=== PATIENT | female | born 1950 | race Caucasian/White ===

== ENCOUNTER 2023-04-15 23:33 | Inpatient (IN) | payer MEDICARE, OTHER, SELFPAY ==
[2023-04-15 14:44] VITALS: BP 103/54
[2023-04-15 17:22] VITALS: BP 134/62
--- NOTE | 2023-04-15 17:31 | ED.GENMED ---
History of Present Illness
General
Chief Complaint: Catheter/Tube Problem
Source: patient and spouse
Exam Limitations: none
Time Seen by Provider: 04/15/23 17:08
Nursing documentation reviewed up to this point in time: agreed with
Travel History
Have you had any contact with someone who has COVID-19?: No
Do you have any symptoms of coronavirus? Fever > 100 degrees, chills, cough, shortness of breath, sore throat, loss of taste or smell, muscle aches, or headache?: No
History of Present Illness
History of Present Illness:
Patient with history of scleroderma and subsequent development of gastroparesis, requiring G-tube placement 3 years ago, which patient drains twice daily, presents to ED secondary to persistent abdominal pain, especially around her G-tube site over
the past 3 days. 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 Initially, patient thought she may have pulled abdominal muscle. However, patient has worsened over the past 3 days. Denies fever or chills.
Denies nausea or vomiting. Denies previous history of similar symptoms.
Past History
Past History
ED Past Medical History: Hypothyroidism, Other (Raynaud and scleroderma, Ascities, SBO, Spontanious Bacterial peritonitis, UTI, Fracture Femur, Chronic Nausea), Other (Uterine and rectal prolapse) and Other (Irritable bowel, takes Trulance)
ED Past Surgical History: Bowel resection, Gynecological (Hysterectomy), Orthopedic and Other (Hernia repair, thyroidectomy, vaginal prolapse, rectal prolapse)
Social History
Tobacco: Non-smoker
Alcohol: None
Drug: None
Personal:
Living: with family
Employment: Retired
Family History
Family History: Other (Noncontributory)
Review of Systems
Review of Systems
Allergies reviewed?: Yes
All Other Systems: ROS reviewed and negative except as documented in HPI and ROS
Constitutional: Reports no symptoms; Denies fever
EENT: Reports no symptoms
Respiratory: Reports no symptoms
Cardiac: Reports no symptoms
ABD/GI: Reports abdominal pain; Denies nausea or vomiting
: Reports no symptoms
Musculoskeletal: Reports no symptoms
Skin: Reports no symptoms
Neurological: Reports no symptoms
Phy Exam
Physical Exam
Physical Exam:
Physical Exam
General: mild painful distress, not acutely ill. afebrile
Head: nc/at. eomi
Neck: supple. no meningeal signs.
Heart: s1/s2 regular rate and rhythm, no murmur. equal radial pulses.
Lungs: no acute respiratory distress. clear bilaterally
Abdomen: normal bowel sounds. G-tube noted over LUQ with surrounding erythema/swelling with tenderness.
Neuro: alert and oriented. no focal neurological deficits
Skin: no rash
Psychiatric: well kept. interactive and cooperative
Extremities: no edema. no calf tenderness.
Course
Orders/Labs/Results
Orders:
Orders
04/15/23 17:17
CT Abd/pel W Iv And Oral Contr Urgent
Comment:
Reason For Exam: periumbilical tenderness w swelling
Iohexol [Omnipaque] See Protocol PO NOW STA
Ketorolac [Toradol] 15 mg IV NOW STA
04/15/23 17:18
0.9% Sodium Chloride 500 ml [Nss] 500 ml IV BOLUS
04/15/23 17:32
CR Chest Portable - 1 View Urgent
Comment:
Reason For Exam: Picc line placement
Reason Study Needs to be Portable: Other
04/15/23 17:40
Complete Blood Count/With Diff Urgent
Comprehensive Metabolic Panel Urgent
Lipase Urgent
04/15/23 19:01
Morphine Sulfate 2 mg .ROUTE .STK-MED ONE
04/15/23 19:06
Morphine Sulfate 2 mg IV NOW STA
04/15/23 19:16
Urinalysis Reflex To Culture Urgent
Date Specimen was Collected: 04/15/23
Time Specimen was Collected: 19:09
Urine Microscopic Reflex Cult Urgent
Urine Culture Urgent
PATTIE Source: U
Specimen Description:
Date Specimen was Collected: 04/15/23
Time Specimen was Collected: 19:09
04/15/23 21:16
HYDROmorphone [Dilaudid] 0.5 mg IV NOW STA
04/15/23 22:41
Admit/Transfer Patient As Directed
Co-Sign Provider:
Level of Care: Inpatient admission
Assign to:: Medical/Surgical
Physician / Group: cynthia erickson
Diagnosis: abdominal pain
Reason for Hospitalization: abdominal pain
Expected length of stay greater than two midnights?: Yes
ELOS- Estimated Length of Stay in days: 3
I certify the patient meets the requirements for IP care: Yes
04/15/23 22:42
Code Status As Directed
Resuscitation Status: Full Code
04/15/23 23:00
0.9% Sodium Chloride 500 ml [Nss] 500 ml IV 100 mls/hr
04/15/23 23:[address] Non Medication Order As Directed
Physician Order: tube to gravity
Above order entered?: Yes
04/16/23 00:08
Lorazepam [Ativan] 0.5 mg PO BIDPRN PRN
04/16/23 00:08
Consult Notification Routine
Specialty to Notify: Gastroenterology
Consult Notification Routine
Specialty to Notify: IRAD (Interventional Radiology)
GASTROINTESTINAL CONSULT Routine
Consulting Provider: Micky Daniels
Was physician already notified: No
Reason for consult: abdominal pain
IRAD CONSULT Routine
Consulting Provider: Bj Reis
Was physician already notified: No
Reason for consult: G tube placement
Activity As Directed
Activity Level: As Tolerated
Vital Signs As Directed
Frequency: Per unit guidelines
DX Deep Vein Thrombosis Video Routine
04/16/23 Breakfast
NPO
Allow oral meds: Yes
Allow clear liquids: Sips of Clears
Complete Blood Count/No Diff IN AM
Comprehensive Metabolic Panel IN AM
04/16/23 07:00
levothyroxine [Thyquidity] 560 mcg PO DAILY AT 0700
04/16/23 08:00
Duloxetine Delayed Release [Cymbalta Delayed Release] 30 mg PO DAILY
Furosemide [Lasix] 20 mg PO DAILY
Heparin 5,000 units SC Q12
Sildenafil Citrate [Revatio] 60 mg PO BID
04/16/23 22:00
Mirtazapine Odt [Remeron Odt] 15 mg PO HS
04/17/23 06:00
Complete Blood Count/No Diff IN AM
Comprehensive Metabolic Panel IN AM
04/18/23 06:00
Complete Blood Count/No Diff IN AM
Comprehensive Metabolic Panel IN AM
04/19/23 06:00
Complete Blood Count/No Diff IN AM
Comprehensive Metabolic Panel IN AM
04/20/23 06:00
Complete Blood Count/No Diff IN AM
Comprehensive Metabolic Panel IN AM
Abnormal Lab Results
04/15/23 04/15/23
17:40 19:16
RBC 2.85 L 10^6/uL
(4.20-5.40)
Hgb 8.5 L g/dL
(12.0-16.0)
Hct 26.5 L %
(37.0-47.0)
MCHC 32.1 L g/dL
(33.0-37.0)
RDW 19.6 H %
(11.5-14.5)
MPV 10.8 H fL
(7.4-10.4)
Absolute Neuts (auto) 7.2 H 10^3/uL
(1.4-6.5)
Absolute Lymphs (auto) 0.7 L 10^3/uL
(1.2-3.4)
Absolute Monos (auto) 0.9 H 10^3/uL
(0.1-0.6)
Neutrophils % 81.5 H %
(42.2-75.2)
Lymphocytes % 7.8 L %
(20.5-51.1)
Monocytes % 10.0 H %
(1.7-9.3)
BUN 49 H mg/dl
(7-17)
Creatinine 1.1 H mg/dL
(0.6-1.0)
Calcium 7.4 L mg/dl
(8.4-10.2)
AST 62 H U/L
(14-36)
ALT 52 H U/L
(0-35)
Alkaline Phosphatase 372 H U/L
(38-126)
Total Protein 5.7 L g/dl
(6.3-8.2)
Albumin 2.6 L g/dl
(3.5-5.0)
Ur Occult Blood Reflex Trace A
(Negative)
Leukocyte Esterase Rfl 2+ A
(Negative)
Urine RBC 3-6 A /HPF
(0-2)
Urine WBC (Reflex) 16-20 A /HPF
(0-5)
Urine Bacteria (Reflex) Many A
(Negative)
04/15/23 17:40
04/15/23 17:40
Vital Signs
Initial and Last Documented VS:
Initial Vital Signs
Temp Pulse Resp BP Pulse Ox
98.0 F 79 17 103/54 100
04/15/23 14:44 04/15/23 14:44 04/15/23 14:44 04/15/23 14:44 04/15/23 14:44
Last Documented Vital Signs
Temp Pulse Resp BP Pulse Ox
98.0 F 76 16 126/74 97
04/15/23 14:44 04/15/23 21:05 04/15/23 21:05 04/15/23 21:05 04/15/23 21:05
MDM/Problems Addressed
MDM/Problems Addressed:
Shortly after obtaining CT scan, patient was in the bathroom, when her G-tube spontaneously dislodged with the balloon intact. Afterwards, although with continual pain, patient reports mild improvement in symptoms. Unfortunately, 22 Liberian G-tube
unavailable in the hospital. As such, Pemberton catheter 22 Liberian inserted without difficulty, to prevent closing of the G-tube tract. Will require definitive treatment.
CT report reviewed and discussed with patient.
Patient will be admitted for further evaluation, including pain control, along with possible component of partial obstruction noted on CT scan.
*Critical Care Note
Total Time (30-74mins, 75-104mins- exclusive of procedures): Not Applicable
ED Attending Note
-
Portions of this chart may have been created with voice recognition software.� Occasional wrong word or��sound alike� substitutions may have occurred due to the inherent limitations of voice recognition software.
Discharge Plan
Departure
Patient Disposition: Admit
Date of Disposition: 04/15/23
Time of Disposition: 21:55
Presentation/result/management discussed w/ accepting MD/DO: Hospitalist
Discharge Problem:
Dislodged gastrostomy tube, Intractable abdominal pain, Partial bowel obstruction
Interventions
Interventions:
*Risk Screen - Suicide Last Done: 04/15/23 17:23
*General Assessment Last Done: 04/15/23 17:23
*Neglect/Abuse Screening Last Done: 04/15/23 17:23
*ED COVID-19 Vaccine History Last Done: 04/15/23 17:21
JE-Piwbxn-Lxalsahwut Assessment Last Done: 04/15/23 17:30
ED-Female Genitourinary Assessment Last Done: 04/15/23 17:30
[2023-04-15] MEDS: TORADOL 15 MG IV (17:53)
[2023-04-15] MEDS: OMNIPAQUE 50 ML PO (17:53)
[2023-04-15] MEDS: NSS 500 IV ×2 (17:55→23:24)
[2023-04-15 17:56] LABS: % Basophils 0.1 % (0-2); % Eosinophils 0.3 % (0-6); % Immature Granulocytes 0.3 % (0-0.5); % Lymphocytes 7.8 % (20.5-51.1); % Neutrophils 81.5 % (42.2-75.2); Absolute Lymphocytes 0.7 10^3/uL (1.2-3.4); Absolute Monocytes 0.9 10^3/uL (0.1-0.6); Absolute Neutrophils 7.2 10^3/uL (1.4-6.5); Hematocrit 26.5 % (37.0-47.0); Hemoglobin 8.5 g/dL (12.0-16.0); Mean Corp Hgb Conc. 32.1 g/dL (33.0-37.0); Mean Corpuscular Hgb 29.8 pg (27.0-31.0); Mean Platelet Volume 10.8 fL (7.4-10.4); Nucleated Red Blood Cells % 0 %; Platelet Count 157 10^3/uL (130-400); Red Blood Cell Count 2.85 10^6/uL (4.20-5.40); Red Cell Dist. Width 19.6 % (11.5-14.5); White Blood Cell Count 8.9 10^3/uL (4.8-10.8)
[2023-04-15 18:00] VITALS: BP 130/56
[2023-04-15 18:09] LABS: ALT (SGPT) 52 U/L (0-35); AST (SGOT) 62 U/L (14-36); Albumin 2.6 g/dl (3.5-5.0); Alkaline Phosphatase 372 U/L (38-126); Blood Urea Nitrogen 49 mg/dl (7-17); Calcium 7.4 mg/dl (8.4-10.2); Carbon Dioxide 24 mmol/L (22-30); Chloride 102 mmol/L (98-107); Glucose 91 mg/dl (70-99); Potassium 3.6 mmol/L (3.5-5.1); Sodium 136 mmol/L (135-145); Total Bilirubin 0.6 mg/dl (0.2-1.3); Total Protein 5.7 g/dl (6.3-8.2); eGFR 53.39
[2023-04-15 18:10] LABS: Lipase 290 U/L (23-300)
[2023-04-15 19:00] VITALS: BP 113/48
[2023-04-15] MEDS: MORPHINE SULFATE 2 MG IV (19:13)
[2023-04-15 19:26] LABS: Urine Albumin Trace (Neg - Trace); Urine Bilirubin Negative (Negative); Urine Character Clear (Clear); Urine Color Yellow; Urine Glucose Negative (Negative); Urine Ketone Negative (Negative); Urine Leukocyte 2+ (Negative); Urine Nitrite Negative (Negative); Urine Occult Blood Trace (Negative); Urine Specific Gravity 1.015 (<1.030); Urine Urobilinogen Negative (Neg - 1+)
[2023-04-15 19:35] LABS: Urine Squamous Cell 0-2 /LPF (Few)
[2023-04-15 19:36] LABS: Urine Bacteria Many (Negative); Urine White Cell 16-20 /HPF (0-5)
[2023-04-15 21:05] VITALS: BP 126/74
--- NOTE | 2023-04-15 22:10 | HPS.HSE ---
Addendum entered and electronically signed by Michael Piedra DO 04/16/23 00:20:
Patient seen and examined independently. Agree with findings and plan as set forth by BETHANY Zabala.
Patient is a 72y F with PMH significant for severe scleroderma with chronic gastroparesis and G-tube dependence who presents to ED complaining of abdominal pain. Patient states that she lifted something heavy about one week ago and has noted
some discomfort in the abdomen near the tube site since that time. She initially though it was a pulled muscle; however, her symptoms gradually increased. Her tube has continued to drain without any apparent issue. She has had no N/V. She denies
any significant change in abdominal distention.
Evaluation in the ED today revealed that G-tube was dislodged with balloon in the fistulous tract. This was removed and a Pemberton was placed for tract maintenance for now.
Ass:
Dislodged G-Tube
Severe Systemic Scleroderma
Chronic Gastroparesis
G-Tube and TPN Dependent
Pulmonary Hypertension
Anemia of Chronic Disease
CKD III
Chronic HFpEF
Plan:
Admit for further evaluation and treatment.
Maintain Pemberton for now - to bag drainage to prevent N/V, etc.
IR evaluation for tube replacement in the AM.
GI evaluation for additional recommendations / TPN / etc.
Continue usual outpatient medications.
(Note that patient does take meds / meals PO as well as supplemental TPN at night).
Follow for clinical changes.
Original Note:
Family Physician
-
Family Physician: Toyin Goldstein
Chief Complaint
-
abdominal pain
History of Present Illness
72 year old with PMH fot hypothyroidism, scleroderma, Raynaud disease, ascites, SBP, SBP, UTI, uterine and rectal prolapse, gastroparesis requiring G-tube placement 3 years ago, which patient drains twice daily, presents to ED secondary to
persistent abdominal pain, especially around her G-tube site over the past 3 days. denied n,v denied constipation. she has chronic diarrhea.� Denies fever or chills. denied dysuria or hematuria.
CT with partial obstruction, dislodge G tube. admitting for further management.
Medical History
Past Medical History
Past Medical History: Reports Other
Additional Past Medical History:
, GERD, Hypothyroidism and Other (CREST syndrome, CHF, GERD, hypothyroidism, scleroderma, peptic ulcer disease, urinary retention gastroparesis on TPN via left upper extremity PICC line and G-tube, psoriatic arthritis, recent Klebsiella pneumonia
bacteremia
Past Surgical History: Reports Other
Additional Past Surgical History:
hysterectomy
hernia repair
thyroidectomy
right hip replacement
Social History
Tobacco: Non-smoker
Alcohol: None
Drug: None
Living: With Family
Family History
Family History: Not pertinent
Allergies / Home Medications
Allergies reflects when Allergies were last updated in [employer].
Home Medications with original date entered in [employer]
Allergy/Medication List:
Allergies
Allergy/AdvReac Type Severity Reaction Status Date / Time
azithromycin [From Zithromax] Allergy itchy at Verified 04/15/23 14:49
IV site;
patient
has
tolerated
since
Home Medications
duloxetine 30 mg capsule,delayed release 30 mg PO DAILY Depression 03/22/19
lorazepam 0.5 mg tablet 0.5 mg PO BIDPRN PRN anxiety/resp distress 09/16/20
sildenafil (pulm.hypertension) 20 mg tablet 60 mg PO BID pulmonary hypertension 09/16/20
hydroxyzine HCl 10 mg tablet 10 mg PO TID PRN itching 11/20/20
denosumab 60 mg/mL subcutaneous syringe (Prolia) 60 mg SC [id number] bones 01/20/23
levothyroxine 20 mcg/mL oral solution (Thyquidity) 560 mcg PO DAILY AT 0700 Thyroid 01/20/23
mirtazapine 30 mg disintegrating tablet 15 mg PO HS Mental Health/Anxiety 01/20/23
furosemide 20 mg tablet (Lasix) 20 mg PO DAILY Fluid Retention/Swelling 02/08/23
acetaminophen 325 mg tablet 1,000 mg PO Q6H 04/15/23
Review of Systems
-
Constitutional: Reports No Symptoms
EENT: Reports No Symptoms
Respiratory: Reports No Symptoms
Cardiac: Reports No Symptoms
Abdomen/GI: Reports Abdominal Pain
: Reports No Symptoms
Musculoskeletal: Reports No Symptoms
Skin: Reports No Symptoms
Neurological: Reports No Symptoms
Endocrine: Reports No Symptoms
Hematologic/Lymphatic: Reports No Symptoms
Psych: Reports No Symptoms
Physical Exam
Vital Signs
Vital Signs
Temp Pulse Resp BP Pulse Ox
98.0 F 76 16 126/74 97
04/15/23 14:44 04/15/23 21:05 04/15/23 21:05 04/15/23 21:05 04/15/23 21:05
Physical Exam
General: Well Developed, Well Nourished and No Apparent Distress
HEENT: NormoCephalic, Moist mucous membranes and Atraumatic
Respiratory: Clear
Cardiac: S1/S2 and Regular Rhythm; No Murmur or Rub
GI: Non Tender, Normal Bowel Sounds and Distended; No Organomegaly
Rectal: Deferred by Provider
Musculoskeletal: No Clubbing, No Cyanosis and No Edema
Skin: No Rash
Neuro: AO x 3 and Nonfocal/grossly intact
Psych: Calm
Laboratory Results
-
04/15/23 17:40
04/15/23 17:40
Laboratory Results
Total Bilirubin 0.6 mg/dl (0.2-1.3) 04/15/23 17:40
AST 62 U/L (14-36) H 04/15/23 17:40
ALT 52 U/L (0-35) H 04/15/23 17:40
Alkaline Phosphatase 372 U/L (38-126) H 04/15/23 17:40
Lipase 290 U/L (23-300) 04/15/23 17:40
Data Reviewed
-
Diagnostic Radiology: Report Reviewed by me
CT Scan: Report Reviewed by me
Lab Data: Labs Reviewed by me
Impression/Plan
-
#persistent abdominal pain likely from partial obstruction/G tube dislodgement
-Pemberton catheter placed instead of G Tube due to availability
-CT abdomen pelvis with he percutaneous gastrostomy tube is partially displaced/dislodged anteriorly and inferiorly, with the majority of the balloon located within the anterior abdominal wall.
-pain resolved after tube removal
-abdomen distended
-maintain NPO
-maintain tube to gravity.
-GI consult
-IR consulted
#anemia of chronic disease
-hgb stable at 8.5
-no active bleeding
-ctm
#CKD stage 3b
-cr 1.1
-ctm
#chronic LF elevation
-ast 62,alt 52
-continue to trend
#hxt of PICC line associated bacteremia-Klebsiella pneumoniae bacteremia
#Scleroderma with esophageal/GERD and dysmotility
-she is on TPN at home
-GI consulted
#Pulm hypertension
-on sildenafil
#Chronic heart failure with preserved EF-clinically compensated-continue Lasix
#DVT prophylaxis
-heparin sq
Full code
[2023-04-16 02:00] VITALS: BP 111/53
[2023-04-16] MEDS: ATIVAN 0.5 MG PO (02:08)
[2023-04-16 06:31] LABS: Hematocrit 24.7 % (37.0-47.0); Hemoglobin 7.9 g/dL (12.0-16.0); Mean Corpuscular Hgb 31.1 pg (27.0-31.0); Mean Corpuscular Volume 97.2 fL (81.0-99.0); Mean Platelet Volume 11.2 fL (7.4-10.4); Platelet Count 143 10^3/uL (130-400); Red Blood Cell Count 2.54 10^6/uL (4.20-5.40); Red Cell Dist. Width 19.6 % (11.5-14.5); White Blood Cell Count 5.3 10^3/uL (4.8-10.8)
[2023-04-16 06:48] LABS: ALT (SGPT) 46 U/L (0-35); AST (SGOT) 56 U/L (14-36); Albumin 2.2 g/dl (3.5-5.0); Alkaline Phosphatase 322 U/L (38-126); Blood Urea Nitrogen 35 mg/dl (7-17); Calcium 6.4 mg/dl (8.4-10.2); Carbon Dioxide 20 mmol/L (22-30); Chloride 110 mmol/L (98-107); Glucose 46 mg/dl (70-99); Potassium 3.7 mmol/L (3.5-5.1); Sodium 134 mmol/L (135-145); Total Bilirubin 0.7 mg/dl (0.2-1.3); Total Protein 5.1 g/dl (6.3-8.2); eGFR 59.86
[2023-04-16] MEDS: DEXTROSE 50% SYRINGE 12.5 GRAMS IV ×2 (07:23→12:07)
[2023-04-16 07:30] VITALS: BP 116/60
[2023-04-16 07:39] VITALS: BP 116/60
[2023-04-16 07:45] LABS: Glucose - Point of Care 139 mg/dl (70-99)
--- NOTE | 2023-04-16 08:21 | W.PN.HOSP.TC ---
Today's Communication/Plan
-
Awaiting GI consult
Keep NPO
Assessment / Plan
Assessment / Plan
72 woman with displaced G-tube.
1. persistent abdominal pain likely from partial obstruction/G tube dislodgement - continues.
-Pemberton catheter placed instead of G Tube due to availability
-CT abdomen pelvis shows percutaneous gastrostomy tube is partially displaced/dislodged anteriorly and inferiorly, with the majority of the balloon located within the anterior abdominal wall.
-pain resolved after tube removal
-abdomen distended
-maintain NPO
-maintain tube to gravity.
-Await GI consult
-Await IR consult to see if they are the ones to fix the tube
2. anemia of chronic disease - worsening
-hgb stable at 8.5 at admit, now 7.9
-no active bleeding, no indication at this time for transfusion
-ctm, if < 10/07, transfuse one unit
3. CKD stage 3b, improving
-cr 1.1 --> 1.0
-ctm
4. chronic LF elevation, improving
-ast 62,alt 52, now 56/46
-continue to trend
5. hxt of PICC line associated bacteremia-Klebsiella pneumoniae bacteremia
-no evidence of active infection at this time
-ctm
6. Scleroderma with esophageal/GERD and dysmotility, chronic
-on TPN at home, ok to temporarily hold while waiting for tube to be fixed
-Awaiting GI consult
7. Pulm hypertension, chronic
-on sildenafil
Needs to either resume or find alternative if tube not resolved by tomorrow
8. Chronic heart failure with preserved EF-clinically compensated-continue Lasix, chronic issue
- resume meds as soon as possible.
Use IV lasix if po not resumed soon
9. DVT prophylaxis
-heparin sq
10. Full code
Anticipated Discharge: Within 24 hours
Subjective/Interval History
-
Date of Service: April 16, 2023
Comfortable. No new issues.
Objective Data
-
Labs:
Laboratory Results
04/16/23
06:23
WBC 5.3
Hgb 7.9 L
Hct 24.7 L
Plt Count 143
Sodium 134 L
Potassium 3.7
Chloride 110 H
Carbon Dioxide 20 L
BUN 35 H
Creatinine 1.0
Glucose 46 L*
Calcium 6.4 L*
Total Bilirubin 0.7
AST 56 H
ALT 46 H
Alkaline Phosphatase 322 H
Vital Signs:
Vital Signs
Temp Pulse Resp BP Pulse Ox
97.2 F 74 16 111/53 97
04/16/23 02:00 04/16/23 02:00 04/16/23 02:00 04/16/23 02:00 04/16/23 02:00
Review of Systems
-
History Source: Patient
All other systems: Reviewed and negative
Physical Exam
-
General: Well Developed, Well Nourished, No Apparent Distress and Comfortable
HEENT: Normocephalic, Atraumatic, Moist Mucous Membranes, Nose Appears Normal and Ears Appear Normal
Respiratory: Clear to Auscultation
Cardiac: Regular Rhythm and S1/S2
GI: Soft and Nontender
Musculoskeletal: No Clubbing, No Cyanosis and No Edema
Skin: Warm and Dry; Negative Rash
Neuro: Awake, Alert and Oriented
Psych: Calm
Data Reviewed
-
Labs: Labs Reviewed by me
[2023-04-16 12:04] LABS: Glucose - Point of Care 56 mg/dl (70-99)
[2023-04-16 12:29] LABS: Glucose - Point of Care 127 mg/dl (70-99)
--- NOTE | 2023-04-16 13:03 | PTCARENOTE ---
PEG dressing changed. 22F Pemberton Catheter connected to drainage bag was placed earlier for temporary fix until new PEG is placed. PEG is draining yellow w/ sediment. Site care given and dressing was charged. PEG is leaking around Pemberton insertion
site as well as into the drainage bag. Will continue to monitor.
--- NOTE | 2023-04-16 13:49 | CON.GI ---
Consultation
-
Date/Time Consultation Requested: 04/16/2022
Date/Time Consultation Performed: 04/16/2022
Performing Provider: Micky Daniels
Reason for Consultation: PEG replacement
Medical History
Chief Complaint / HPI
Chief Complaint: PEG dislodgement / needs replacement
History of Present Illness:
Patient is a 72-year-old female with history of severe systemic scleroderma with chronic gastroparesis and venting G-tube, TPN dependence, pulm hypertension, CKD, and chronic CHF who presents with dislodged PEG tube. She was lifting something about
a week ago and had been having abdominal discomfort near the G-tube site since. CT scan performed in ER showed partially dislodged PEG tube with majority of balloon located within the anterior abdominal wall, and dilated duodenum/small bowel. PEG
tube was removed and replaced with Marquez catheter. Since the removal of PEG tube repeat abdominal pain improved. Patient gets most of GI care from her scleroderma and associated esophageal/small bowel dysmotility from [facility].
Past Medical History
Past Medical History: Other
Past Surgical History: Gynecological and Other
Social History
Tobacco: Non-Smoker
Alcohol: None
Allergies / Home Medications
Allergy/AdvReac Type Severity Reaction Status Date / Time
azithromycin [From Zithromax] Allergy itchy at Verified 04/15/23 14:49
IV site;
patient
has
tolerated
since
Medication Instructions Recorded
duloxetine 30 mg capsule,delayed 30 mg PO DAILY Depression 03/22/19
release
lorazepam 0.5 mg tablet 0.5 mg PO BIDPRN PRN anxiety/resp 09/16/20
distress
sildenafil (pulm.hypertension) 20 60 mg PO BID pulmonary hypertension 09/16/20
mg tablet
hydroxyzine HCl 10 mg tablet 10 mg PO TID PRN itching 11/20/20
denosumab 60 mg/mL subcutaneous 60 mg SC [id number] bones 01/20/23
syringe (Prolia)
levothyroxine 20 mcg/mL oral 560 mcg PO DAILY AT 0700 Thyroid 01/20/23
solution (Thyquidity)
mirtazapine 30 mg disintegrating 30 mg PO HS Mental Health/Anxiety 01/20/23
tablet
furosemide 20 mg tablet (Lasix) 20 mg PO DAILYPRN PRN fluid 02/08/23
cholecalciferol (vitamin D3) 25 25 mcg PO DAILY 04/16/23
mcg (1,000 unit) capsule (Vitamin
D3)
cyanocobalamin (vitamin B-12) 1,000 mcg IM QMONTH 04/16/23
1,000 mcg/mL injection solution
diphenoxylate-atropine 2.5 1 tab PO QIDPRN PRN diarrhea 04/16/23
mg-0.025 mg tablet (Lomotil)
estradiol 0.01% (0.1 mg/gram) 1 appful vaginal TUTH 04/16/23
vaginal cream (Estrace)
famotidine 40 mg tablet (Pepcid) 40 mg PO QPM 04/16/23
Review of Systems
Vital Signs
Temp Pulse Resp BP Pulse Ox
97.9 F 76 18 116/60 100
04/16/23 07:30 04/16/23 07:30 04/16/23 07:30 04/16/23 07:39 04/16/23 07:30
Physical Exam
Exam
General: Well Developed and Well Nourished
HEENT: Normocephalic
Respiratory: Clear
Cardiac: S1/S2
GI: Soft, Non Tender and Other (marquez catheter in previous PEG tract draining gastric content)
Results
WBC 5.3 10^3/uL (4.8-10.8) 04/16/23 06:23
Hgb 7.9 g/dL (12.0-16.0) L 04/16/23 06:23
Hct 24.7 % (37.0-47.0) L 04/16/23 06:23
MCV 97.2 fL (81.0-99.0) 04/16/23 06:23
Plt Count 143 10^3/uL (130-400) 04/16/23 06:23
Absolute Neuts (auto) 7.2 10^3/uL (1.4-6.5) H 04/15/23 17:40
Sodium 134 mmol/L (135-145) L 04/16/23 06:23
Potassium 3.7 mmol/L (3.5-5.1) 04/16/23 06:23
Chloride 110 mmol/L (98-107) H 04/16/23 06:23
Carbon Dioxide 20 mmol/L (22-30) L 04/16/23 06:23
BUN 35 mg/dl (7-17) H 04/16/23 06:23
Creatinine 1.0 mg/dL (0.6-1.0) 04/16/23 06:23
Calcium 6.4 mg/dl (8.4-10.2) L* 04/16/23 06:23
Total Bilirubin 0.7 mg/dl (0.2-1.3) 04/16/23 06:23
AST 56 U/L (14-36) H 04/16/23 06:23
ALT 46 U/L (0-35) H 04/16/23 06:23
Alkaline Phosphatase 322 U/L (38-126) H 04/16/23 06:23
Lipase 290 U/L (23-300) 04/15/23 17:40
Diagnostic Image Results:
Prior GI Procedures:
EGD:
Colonoscopy:
Assessment / Plan
-
Patient is a 72-year-old female with history of severe systemic scleroderma with gastroparesis and motility disorder which are managed at [facility] presenting with PEG dislodgment and associated abdominal pain.
Impression / Rec:
1. Dislodged PEG / abdominal pain - patient reported lifting something heavy about a week ago and had been having abdominal discomfort/pain since. Abdominal CT in ER showed dislodged peg tube with majority of the balloon located in anterior
abdominal wall. PEG tube was removed and replaced with replaced with Marquez catheter while in ER. I replaced the existing Marquez catheter with 22 Fr PATTIE gastrostomy PEG tube in ER. Gastric content was seen to drain from the newly placed gastrostomy
tube confirming its position in the stomach. She denies abdominal pain at this time. Patient is okay to discharge home from PEG malfunction standpoint.
2. Dilated small bowel - CT showed severe dilation of duodenum/prox jej with transition point, however this was see from previous CT from 01/2023 and is likely 2/2 her scleroderma, minimal concern for SBO.
Total Time Spent with Patient (in minutes): 55
-
-
Thank you for consultation and allowing me to participate in the patient's care. Please call the microphone operator GI physician during the after hours with any questions or concerns.
--- NOTE | 2023-04-16 15:00 | W.DS.TRANS ---
DC Summary - Academic Specialist
-
Discharge Instructions:
Instructions: resume usual TPN. Repeat blood work tomorrow AM.
Stand-Alone Forms:
Changes to Home Medications: No
Discharge Medications:
DC Medications w/original date entered in [facility]
duloxetine 30 mg capsule,delayed release 30 mg PO DAILY Depression 03/22/19
lorazepam 0.5 mg tablet 0.5 mg PO BIDPRN PRN anxiety/resp distress 09/16/20
sildenafil (pulm.hypertension) 20 mg tablet 60 mg PO BID pulmonary hypertension 09/16/20
hydroxyzine HCl 10 mg tablet 10 mg PO TID PRN itching 11/20/20
denosumab 60 mg/mL subcutaneous syringe (Prolia) 60 mg SC [id number] bones 01/20/23
levothyroxine 20 mcg/mL oral solution (Thyquidity) 560 mcg PO DAILY AT 0700 Thyroid 01/20/23
mirtazapine 30 mg disintegrating tablet 30 mg PO HS Mental Health/Anxiety 01/20/23
furosemide 20 mg tablet (Lasix) 20 mg PO DAILYPRN PRN fluid 02/08/23
cholecalciferol (vitamin D3) 25 mcg (1,000 unit) capsule (Vitamin D3) 25 mcg PO DAILY 04/16/23
cyanocobalamin (vitamin B-12) 1,000 mcg/mL injection solution 1,000 mcg IM QMONTH 04/16/23
diphenoxylate-atropine 2.5 mg-0.025 mg tablet (Lomotil) 1 tab PO QIDPRN PRN diarrhea 04/16/23
estradiol 0.01% (0.1 mg/gram) vaginal cream (Estrace) 1 appful vaginal TUTH 04/16/23
famotidine 40 mg tablet (Pepcid) 40 mg PO QPM 04/16/23
Home Medication Changes
Pending Results: No
Total time spent discharging patient (in min): 35
--- NOTE | 2023-04-16 15:22 | CM ---
CM reviewed medical records. Plan for discharge to home with care from [facility] and TPN to be followed by GI at [facility]> CM sent referral via [facility] to [facility].
PLAN: Home with [facility].
--- NOTE | 2023-04-18 16:13 | PN.CDI ---
Addendum entered and electronically signed by Derrell Lombardo MD 05/04/23 18:15:
In review of medical records patient is afebrile with normal white count and no urinary complaints.
Asymptomatic bacteriuria with no evidence of UTI.
Original Note:
CDI
- -
CDI:
Physician Documentation Request
Admit Date: 04/15/23 23:33
Dear Doctor Clover,
Patient presented with G tube dislodgment.
Urine cultures were positive for Klebseilla pneumoniae
UA resulted as:
Laboratory Tests
04/15/23
19:16
Urine Color Yellow
Urine Clarity Clear
Urine Nitrite (Reflex) Negative
Leukocyte Esterase Rfl 2+ A
Urine WBC (Reflex) 16-20 A
Urine Bacteria (Reflex) Many A
Based on the above, could you please provide a diagnosis that supports the above lab abnormalities and additional evaluation/ monitoring
UTI
Asymptomatic bacteremia
Other
Use of terms such as suspected, likely, concern for, or probable (associated with a specific diagnosis that is being evaluated, monitored, or treated as if it exists) are acceptable and can be coded in the inpatient setting, when documented at the
time of discharge.
Thank you,
Marie Woo RN, BSN
CDI Specialist
tiger text
Please use your independent medical judgment in providing your response.
== END 2023-04-16 15:35 | disposition home health service (06) | DRG 394 ==
LOC: ED 23:33
PROVIDERS: Radiology Diagnostic Radiology; Registered Nurse; ADMITTING PHYSICIAN Hospitalist; ATTENDING PHYSICIAN Internal Medicine; CONSULT PHYSICIAN Internal Medicine Gastroenterology; EMERGENCY PHYSICIAN Emergency Medicine; FAMILY PHYSICIAN Family Medicine
PROC: 02HV33Z Insertion of Infusion Device into Superior Vena Cava, Percutaneous Approach (ICD-10-PCS; 2023-04-15)
DX: K94.23 Gastrostomy malfunction (principal); I50.32 Chronic diastolic (congestive) heart failure; R78.81 Bacteremia; K31.84 Gastroparesis; M34.1 CR(E)ST syndrome; E89.0 Postprocedural hypothyroidism; K58.9 Irritable bowel syndrome, unspecified; I27.20 Pulmonary hypertension, unspecified; D63.8 Anemia in other chronic diseases classified elsewhere; N18.32 Chronic kidney disease, stage 3b; K21.9 Gastro-esophageal reflux disease without esophagitis; Z96.641 Presence of right artificial hip joint; Z88.1 Allergy status to other antibiotic agents; Z79.890 Hormone replacement therapy
CPT/HCPCS: 43762; 71045; 74177; 80053; 81003; 81015; 82962; 83690; 85025; 85027; 87077; 87086; 87186; 96361; 96374; 96375; 99285; Q9967

== ENCOUNTER → 2023-05-10 11:55 | Outpatient (REF) | payer MEDICARE, OTHER, SELFPAY | LOC: HWRAD 11:55 | PROVIDERS: ATTENDING PHYSICIAN Neurological Surgery; FAMILY PHYSICIAN Family Medicine | DX: S06.5XAA Traumatic subdural hemorrhage with loss of consciousness status unknown, initial encounter (principal) | CPT/HCPCS: 70450 ==

== ENCOUNTER 2023-07-21 09:20 | Outpatient (RCR) | payer MEDICARE, OTHER, SELFPAY ==
[2023-07-20 14:54] LABS: % Basophils 0.5 % (0-2); % Eosinophils 0.8 % (0-6); % Immature Granulocytes 0.2 % (0-0.5); % Monocytes 11.8 % (1.7-9.3); % Neutrophils 77.7 % (42.2-75.2); Absolute Eosinophils 0.1 10^3/uL (0-0.7); Absolute Lymphocytes 0.6 10^3/uL (1.2-3.4); Absolute Monocytes 0.8 10^3/uL (0.1-0.6); Hematocrit 25.8 % (37.0-47.0); Hemoglobin 7.9 g/dL (12.0-16.0); Mean Corp Hgb Conc. 30.6 g/dL (33.0-37.0); Mean Corpuscular Hgb 26.2 pg (27.0-31.0); Mean Corpuscular Volume 85.7 fL (81.0-99.0); Mean Platelet Volume 11.8 fL (7.4-10.4); Platelet Count 196 10^3/uL (130-400); Red Blood Cell Count 3.01 10^6/uL (4.20-5.40); Red Cell Dist. Width 18.3 % (11.5-14.5); White Blood Cell Count 6.5 10^3/uL (4.8-10.8)
[2023-07-20 15:55] LABS: Iron 33 ug/dl (37-170)
[2023-07-20 16:04] LABS: IgA 364 mg/dl (70-400); IgG 1128 mg/dl (700-1600)
[2023-07-20 16:08] LABS: Percent Saturation 9 % (20-50); Total Iron Binding Capacity 331 ug/dl (265-497)
[2023-07-20 16:17] LABS: IgM 441 mg/dl (40-230)
[2023-07-21 09:47] VITALS: BP 118/84
[2023-07-21 10:12] VITALS: BP 114/52
[2023-07-21 12:24] VITALS: BP 101/56
[2023-07-25 10:41] LABS: Albumin 2.74 g/dL (3.75-5.01); Alpha 1 Globulin 0.48 g/dL (0.19-0.46); Alpha 2 Globulin 0.64 g/dL (0.48-1.05); Free Kappa Light Chains,Quant 89.52 mg/L (3.30-19.40); Free Lambda Light Chains,Quant 60.61 mg/L (5.71-26.30); IgA 350 mg/dL (68-408); IgG 1047 mg/dL (768-1632); IgM 444 mg/dL (35-263); Immunofixation Electrophoresis IFE Done; Kappa/Lambda Fr Light Ratio 1.48 (0.26-1.65); Monoclonal Protein 0.73 g/dL (<=0.00)
== END 2023-08-18 23:59 | disposition home or self-care (01) ==
LOC: OID 09:20
PROVIDERS: ATTENDING PHYSICIAN Internal Medicine Hematology & Oncology; FAMILY PHYSICIAN Family Medicine
DX: D47.2 Monoclonal gammopathy (principal)
CPT/HCPCS: 36430; 82728; 82784; 83521; 83540; 83550; 84155; 84165; 85025; 86334; 86850; 86900; 86901; 86920; P9016

== ENCOUNTER → 2023-07-31 12:18 | Outpatient (REF) | payer MEDICARE, OTHER, SELFPAY ==
[2023-07-31 12:33] LABS: % Basophils 0.5 % (0-2); % Eosinophils 0.8 % (0-6); % Immature Granulocytes 0.6 % (0-0.5); % Lymphocytes 12.8 % (20.5-51.1); % Neutrophils 73.3 % (42.2-75.2); Absolute Eosinophils 0.1 10^3/uL (0-0.7); Absolute Lymphocytes 0.8 10^3/uL (1.2-3.4); Absolute Monocytes 0.8 10^3/uL (0.1-0.6); Absolute Neutrophils 4.6 10^3/uL (1.4-6.5); Hemoglobin 7.7 g/dL (12.0-16.0); Mean Corp Hgb Conc. 30.8 g/dL (33.0-37.0); Mean Corpuscular Hgb 25.8 pg (27.0-31.0); Mean Corpuscular Volume 83.9 fL (81.0-99.0); Mean Platelet Volume 12.5 fL (7.4-10.4); Nucleated Red Blood Cells % 0 %; Platelet Count 191 10^3/uL (130-400); Red Blood Cell Count 2.98 10^6/uL (4.20-5.40); Red Cell Dist. Width 17.5 % (11.5-14.5); White Blood Cell Count 6.3 10^3/uL (4.8-10.8)
== END ==
LOC: CLAB 12:18
PROVIDERS: ATTENDING PHYSICIAN Internal Medicine Hematology & Oncology
DX: D47.2 Monoclonal gammopathy (principal); D50.0 Iron deficiency anemia secondary to blood loss (chronic); R53.83 Other fatigue
CPT/HCPCS: 85025

== ENCOUNTER 2023-09-03 17:59 | Inpatient (IN) | payer MEDICARE, OTHER, SELFPAY ==
[2023-09-03 10:27] VITALS: BP 115/59
--- NOTE | 2023-09-03 11:11 | ED.GENMED ---
History of Present Illness
General
Chief Complaint: Catheter/Tube Problem
Source: patient
Exam Limitations: none
Time Seen by Provider: 09/03/23 11:01
Travel History
Have you had any contact with someone who has COVID-19?: No
Do you have any symptoms of coronavirus? Fever > 100 degrees, chills, cough, shortness of breath, sore throat, loss of taste or smell, muscle aches, or headache?: No
History of Present Illness
History of Present Illness:
73-year-old female with systemic scleroderma with esophageal dysmotility on TPN through right upper extremity PICC line presents with pain around G-tube site. She believes there may be an infection. She uses the G-tube site only for drainage. She
gives nutrition through her PICC line. This pain has been progressively worsening over the past week. No fever. No diarrhea. No other complaints at this time
Past History
Past History
ED Past Medical History: Hypothyroidism, Other (Raynaud and scleroderma, Ascities, SBO, Spontanious Bacterial peritonitis, UTI, Fracture Femur, Chronic Nausea), Other (Uterine and rectal prolapse) and Other (Irritable bowel, takes Trulance)
ED Past Surgical History: Bowel resection, Gynecological (Hysterectomy), Orthopedic and Other (Hernia repair, thyroidectomy, vaginal prolapse, rectal prolapse)
Social History
Tobacco: Non-smoker
Alcohol: None
Drug: None
Personal:
Living: with family
Employment: Retired
Family History
Family History: Other (Noncontributory)
Phy Exam
Physical Exam
Physical Exam:
General: Well-appearing female no acute respiratory distress
HEENT: Normocephalic atraumatic
Heart: Regular rate and rhythm no murmurs
Lungs: Clear no wheeze or rales
Abdomen soft but diffusely tender no guarding or rebound. G-tube site inspected. Ostomy is somewhat dilated. Examiner does see the balloon of the G-tube through the ostomy.
Extremities: No cyanosis or edema
Course
Orders/Labs/Results
Orders:
Orders
09/03/23 11:09
CT Abd/pelvis W Iv Cont Urgent
Comment:
Reason For Exam: abdominal pain, tube dysfunction
09/03/23 11:24
Complete Blood Count/With Diff Urgent
09/03/23 12:14
Comprehensive Metabolic Panel Urgent
09/03/23 16:13
Tube Check [CR Cont Inj Eval Tube(by Rad)] Urgent
Comment:
Reason For Exam: G tube exchange
Abnormal Lab Results
09/03/23 09/03/23
11:24 12:14
RBC 2.51 L 10^6/uL
(4.20-5.40)
Hgb 7.6 L g/dL
(12.0-16.0)
Hct 23.4 L %
(37.0-47.0)
MCHC 32.5 L g/dL
(33.0-37.0)
RDW 22.8 H %
(11.5-14.5)
MPV 11.3 H fL
(7.4-10.4)
Absolute Lymphs (auto) 0.7 L 10^3/uL
(1.2-3.4)
Absolute Monos (auto) 0.8 H 10^3/uL
(0.1-0.6)
Neutrophils % 76.3 H %
(42.2-75.2)
Lymphocytes % 10.5 L %
(20.5-51.1)
Monocytes % 12.1 H %
(1.7-9.3)
BUN 47 H mg/dl
(7-17)
Glucose 123 H mg/dl
(70-99)
AST 53 H U/L
(14-36)
Alkaline Phosphatase 225 H U/L
(38-126)
Total Protein 5.6 L g/dl
(6.3-8.2)
Albumin 2.5 L g/dl
(3.5-5.0)
09/03/23 11:24
09/03/23 12:14
Vital Signs
Initial and Last Documented VS:
Initial Vital Signs
Temp Pulse Resp BP Pulse Ox
98.4 F 83 18 115/59 96
09/03/23 10:27 09/03/23 10:27 09/03/23 10:27 09/03/23 10:27 09/03/23 10:27
Last Documented Vital Signs
Temp Pulse Resp BP Pulse Ox
98.4 F 74 16 111/69 98
09/03/23 10:27 09/03/23 13:56 09/03/23 13:56 09/03/23 13:56 09/03/23 13:56
MDM/Problems Addressed
Differential Diagnosis Includes:
Abdominal pain. Question G-tube dislodged or dysfunctioning versus underlying abscess. Patient cannot tolerate any oral intake. Will do CT scan. She does have chronic kidney disease. Check kidney function prior to administering IV contrast.
Labs pending.
*Critical Care Note
Total Time (30-74mins, 75-104mins- exclusive of procedures): Not Applicable
Update Note
Update Note:
CT shows that the tube is inflated within the abdominal wall and the tip of the tube may just be into the gastric lumen. CT also shows small bowel obstruction. The tube was exchanged to a 24 Hungarian G-tube and inflated with 16 mL of saline. During
this process a large amount of fecal material and liquid stool was leaking around the tube. I would presume the small bowel obstruction was partially decompressed however the patient still has pain. Will admit to hospital for further evaluation.
Hospitalist and general surgery made aware
ED Attending Note
-
Portions of this chart may have been created with voice recognition software.� Occasional wrong word or��sound alike� substitutions may have occurred due to the inherent limitations of voice recognition software.
Discharge Plan
Departure
Patient Disposition: Admit
Date of Disposition: 09/03/23
Time of Disposition: 16:26
Admit to: Med/Surg
Presentation/result/management discussed w/ accepting MD/DO: Hospitalist
Discharge Problem:
SBO (small bowel obstruction)
Prescriptions:
No Action
sildenafil (pulm.hypertension) 20 MG tablet
60 mg PO BID
lorazepam 0.5 MG tablet
0.5 mg PO BIDPRN PRN (Reason: anxiety/resp distress)
Patient Comments:
hydroxyzine HCl 10 MG tablet
10 mg PO TID PRN (Reason: itching)
mirtazapine 30 mg Tablet,Disintegrating
30 mg PO HS
Prolia 60 mg/mL Syringe
60 mg SC [id number]
Thyquidity 20 mcg/mL Solution
560 mcg PO DAILY AT 0700
furosemide [Lasix] 20 mg tablet
20 mg PO DAILYPRN PRN (Reason: fluid)
famotidine [Pepcid] 40 mg Tablet
40 mg PO QPM
diphenoxylate-atropine [Lomotil] 2.5-0.025 mg Tablet
1 tab PO QIDPRN PRN (Reason: diarrhea)
cyanocobalamin (vitamin B-12) 1,000 mcg/mL Solution
1,000 mcg IM QMONTH
estradiol [Estrace] 0.01 % (0.1 mg/gram) Cream
1 appful VAGINAL TUTH
cholecalciferol (vitamin D3) [Vitamin D3] 25 mcg (1,000 unit) Capsule
25 mcg PO DAILY
Referrals:
Toyin Goldstein MD [Family Provider] -
Interventions
Interventions:
*Risk Screen - Suicide Last Done: 09/03/23 10:41
*Neglect/Abuse Screening Last Done: 09/03/23 10:41
*ED COVID-19 Vaccine History Last Done: 09/03/23 10:41
IH-Cppyib-Ahxhwfwyhx Assessment Last Done: 09/03/23 10:49
ED-Female Genitourinary Assessment Last Done: 09/03/23 10:49
Discharge Date and Time
Print Language: FAROESE
[2023-09-03 11:36] LABS: % Basophils 0.3 % (0-2); % Eosinophils 0.3 % (0-6); % Immature Granulocytes 0.5 % (0-0.5); % Lymphocytes 10.5 % (20.5-51.1); % Monocytes 12.1 % (1.7-9.3); % Neutrophils 76.3 % (42.2-75.2); Absolute Lymphocytes 0.7 10^3/uL (1.2-3.4); Absolute Monocytes 0.8 10^3/uL (0.1-0.6); Absolute Neutrophils 4.9 10^3/uL (1.4-6.5); Hematocrit 23.4 % (37.0-47.0); Hemoglobin 7.6 g/dL (12.0-16.0); Mean Corp Hgb Conc. 32.5 g/dL (33.0-37.0); Mean Corpuscular Hgb 30.3 pg (27.0-31.0); Mean Corpuscular Volume 93.2 fL (81.0-99.0); Mean Platelet Volume 11.3 fL (7.4-10.4); Nucleated Red Blood Cells % 0 %; Platelet Count 158 10^3/uL (130-400); Red Blood Cell Count 2.51 10^6/uL (4.20-5.40); Red Cell Dist. Width 22.8 % (11.5-14.5); White Blood Cell Count 6.4 10^3/uL (4.8-10.8)
[2023-09-03 11:50] LABS: Anisocytosis 1+; Hypochromasia 1+; Normal RBC Morphology No; Ovalocytes 1+
[2023-09-03 12:43] LABS: ALT (SGPT) 35 U/L (0-35); AST (SGOT) 53 U/L (14-36); Albumin 2.5 g/dl (3.5-5.0); Alkaline Phosphatase 225 U/L (38-126); Blood Urea Nitrogen 47 mg/dl (7-17); Calcium 8.7 mg/dl (8.4-10.2); Carbon Dioxide 28 mmol/L (22-30); Chloride 106 mmol/L (98-107); Glucose 123 mg/dl (70-99); Potassium 3.9 mmol/L (3.5-5.1); Sodium 139 mmol/L (135-145); Total Bilirubin 0.6 mg/dl (0.2-1.3); Total Protein 5.6 g/dl (6.3-8.2); eGFR > 60.00
[2023-09-03 13:56] VITALS: BP 111/69
--- NOTE | 2023-09-03 16:34 | W.PN.UPDATE ---
Update Note
Progress Note Update
This is an addendum to H&P written by TSERING Laughlin
I saw and examined the patient.
The [employer]UT[employer] ARCHITECT's note was reviewed and I agree with the note.
Comment:
Ms. Deann Dee is a 73 yo woman with hx Scleroderma/CREST syndrome with severe gastroparesis requiring TPN and G-Tube for venting, pulmonary hypertension, anemia of chronic disease, CKD III, HFpEF presents with pain around G-Tube site.
Triage vitals: T 98.4, P 83, RR 18, BP 115/59, SpO2 96%
Labs with WBC 6.4, Hg 7.6 (baseline), PLT 158, Na 139, K+ 3.9, BUN 47, Cr 0.9, Glucose 123
ABDOMEN/PELVIS CT
IMPRESSION:
1) Trace bilateral pleural effusions. Mild atelectasis. Fluid distention of the distal esophagus, likely reflecting reflux.
2) Percutaneous gastrostomy tube balloon hub straddling the abdominal wall soft tissues; the distal tip of the tube appears to be situated at the peripheral margin of the gastric lumen.. Mild soft tissue stranding surrounding the balloon which may
be reactive. Cannot exclude inflammatory changes. Trace fluid associated with the adjacent peritoneal margin. However, no focal collection or evidence to suggest abscess.
3) Fluid distention of the stomach and proximal small bowel with transition in the anterior left mid to lower quadrant, suggesting small bowel obstruction.
4) suspect chronic diverticulosis associated with inferior position/low position cecum in the right hemipelvis.
5) Trace upper abdominal ascites most pronounced adjacent to the spleen. No focal collection or abscess. No free air.
6) mild fatty infiltration of liver.
7) mild splenomegaly.
Tube Check:
IMPRESSION:
Examination confirms placement of the percutaneous gastrostomy tube tip within the stomach. No extraluminal extravasation.
Patient's tube was exchanged in the ER and pain persists therefore ER asking for admission.
On exam patient is awake, conversant, in no acute distress. Abdomen distended and tender. Lungs clear. CV: S1, S2, RRR. LE; chronic erythematous lesions right ankle with scaling
Severe Scleroderma/CREST syndrome with severe Gastroparesis, TPN and G-tube dependent for Venting
Malpositioned G-tube
-s/p tube exchange in ER; tube check confirms placement with tube tip within stomach
-patient remains uncomfortable 2/2 build up of fluid; will place tube to continuous drainage overnight
-keep NPO, meds OK
-gentle D5 IVF overnight
-repeat x-ray in AM
-case discussed with GI
HFpEF
-prone to volume overload
-gentle fluids overnight, hold lasix, close eye on volume status
LE Rash
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
DVT PPx
FULL CODE
76 minutes spent on patient evaluation, medical decision making, coordination of care
--- NOTE | 2023-09-03 16:40 | HPS.HSE ---
Family Physician
-
Family Physician: Toyin Goldstein
Chief Complaint
-
Pain at G Tube Site
History of Present Illness
This is a 73 year old female with past medical history of systemic scleroderma and gastric dysmotility who presents to the emergency department with pain around her G-tube. The patient reports she noticed the skin around her G-tube was becoming red
and painful the last 2 days. The patient's caregiver notes the last couple of days it has been increasingly difficult to vent the patient's G-tube. She notes her symptoms got worse today, prompting her to present to the emergency department. The
patient denies fever, chills, sweats, and abdominal pain.
Medical History
Past Medical History
Past Medical History: Reports Other
Additional Past Medical History:
Severe Systemic Scleroderma
Chronic Gastroparesis
G-Tube and TPN Dependence
Pulmonary Hypertension
Chronic HFpEF
CKD Stage III
Anemia of Chronic Disease
Post-Surgical Hypothyroidism
Chronic LFTs Elevation
GERD
Osteoporosis
Past Surgical History: Reports Other
Additional Past Surgical History:
Thyroidectomy
Hysterectomy
Hernia Repair
Right Hip Replacement
Left Hip ORIF
Social History
Tobacco: Non-smoker
Alcohol: None
Family History
Family History: Not pertinent
Allergies / Home Medications
Allergies reflects when Allergies were last updated in [facility].
Home Medications with original date entered in [facility]
Allergy/Medication List:
Allergies
Allergy/AdvReac Type Severity Reaction Status Date / Time
amoxicillin Allergy diarrhea Verified 09/03/23 10:28
azithromycin [From Zithromax] Allergy itchy at Verified 09/03/23 10:28
IV site;
patient
has
tolerated
since
Home Medications
lorazepam 0.5 mg tablet 0.5 mg PO BIDPRN PRN anxiety/resp distress 09/16/20
sildenafil (pulm.hypertension) 20 mg tablet 60 mg PO BID pulmonary hypertension 09/16/20
hydroxyzine HCl 10 mg tablet 10 mg PO TID PRN itching 11/20/20
denosumab 60 mg/mL subcutaneous syringe (Prolia) 60 mg SC [id number] bones 01/20/23
levothyroxine 20 mcg/mL oral solution (Thyquidity) 560 mcg PO DAILY AT 0700 Thyroid 01/20/23
mirtazapine 30 mg disintegrating tablet 30 mg PO HS Mental Health/Anxiety 01/20/23
furosemide 20 mg tablet (Lasix) 20 mg PO DAILYPRN PRN fluid 02/08/23
cholecalciferol (vitamin D3) 25 mcg (1,000 unit) capsule (Vitamin D3) 25 mcg PO DAILY 04/16/23
cyanocobalamin (vitamin B-12) 1,000 mcg/mL injection solution 1,000 mcg IM QMONTH 04/16/23
diphenoxylate-atropine 2.5 mg-0.025 mg tablet (Lomotil) 1 tab PO QIDPRN PRN diarrhea 04/16/23
estradiol 0.01% (0.1 mg/gram) vaginal cream (Estrace) 1 appful vaginal TUTH 04/16/23
famotidine 40 mg tablet (Pepcid) 40 mg PO QPM 04/16/23
Review of Systems
-
A 12 point ROS was completed and negative except as noted: Yes
Constitutional: Denies Fever or Chills
Respiratory: Denies Cough or Trouble Breathing
Cardiac: Denies Chest Pain or Palpitations
Physical Exam
Vital Signs
Vital Signs
Temp Pulse Resp BP Pulse Ox
98.4 F 74 16 111/69 98
09/03/23 10:27 09/03/23 13:56 09/03/23 13:56 09/03/23 13:56 09/03/23 13:56
Physical Exam
General: Comfortable and Conversant
HEENT: Anicteric and Moist mucous membranes
Respiratory: Clear and Non Labored Respirations
Cardiac: S1/S2 and Regular Rhythm
GI: Soft, Distended (Slighty) and Peg Tube (Foul smelling drainage noted to be leaking from around tube site)
Musculoskeletal: No Clubbing, Cyanosis, No Cyanosis and Other (Sausage like fingers)
Skin: Warm and Dry
Neuro: Awake, Alert, Oriented and Nonfocal/grossly intact
Laboratory Results
-
09/03/23 11:24
09/03/23 12:14
Laboratory Results
Total Bilirubin 0.6 mg/dl (0.2-1.3) 09/03/23 12:14
AST 53 U/L (14-36) H 09/03/23 12:14
ALT 35 U/L (0-35) 09/03/23 12:14
Alkaline Phosphatase 225 U/L (38-126) H 09/03/23 12:14
Data Reviewed
-
CT Scan: Report Reviewed by me
Lab Data: Labs Reviewed by me
Impression/Plan
-
Small Bowel Obstruction
-Consult General Surgery and GI
-Continue NPO/IVFs
-Attempt to drain via G-Tube to gravity
-Check Abd X-Ray in AM
Dislodged G-Tube
-Tube replaced by ED - Tube check confirms placement of tube in the stomach
Severe Systemic Scleroderma
Chronic Gastroparesis
TPN Dependence
-Continue TPN
Pulmonary Hypertension
-Resume sildenafil when able to take oral meds
Chronic HFpEF
-Monitor Is&Os and Daily Weights
CKD Stage III
-Creatinine at baseline
Anemia of Chronic Disease
-Hgb at baseline
Post-Surgical Hypothyroidism
-Resume Levothyroxine when able to take oral meds
Chronic LFTs Elevation
-LFT stable compared to prior
Anxiety/Depression
-Resume Remeron and Lorazepam when able to take oral meds
GERD
-Continue Protonix
DVT proph: SCDs
Code Status: Full Code
[2023-09-03 18:00] VITALS: BP 127/68
[2023-09-03 18:37] VITALS: BMI 20.7
[2023-09-03 18:54] VITALS: BMI 21.1
--- NOTE | 2023-09-03 19:20 | PTCARENOTE ---
Received patient from previous shift. Patient G-tube leaking around the site ( brown/green). Placed G-tube to gravity as per order/ cleaned G-tube site with NS. Helped patient to get cleaned. Notified BETHANY Stinson as patient stated she straight
cath at home. POC reviewed with patient.
[2023-09-03] MEDS: D5/0.9% SODIUM CHLORIDE 1000 IV (20:27)
[2023-09-03] MEDS: NSS (PRESERVATIVE FREE) 10 ML IV (20:28)
[2023-09-03] MEDS: CARAFATE SUSPENSION 1 GM PO (20:30)
[2023-09-03] MEDS: REVATIO 60 MG PO (20:30)
[2023-09-03] MEDS: PROTONIX IV 40 MG IV (20:30)
[2023-09-03] MEDS: REMERON ODT 30 MG PO (21:28)
--- NOTE | 2023-09-03 22:00 | PTCARENOTE ---
Patient got moved to private room as patient has h/o ESBL/ VRE
[2023-09-03 23:04] VITALS: BP 111/58
--- NOTE | 2023-09-03 23:24 | PTCARENOTE ---
Addendum entered by Radha Sandoval RN 09/03/23 23:53:
Okay to use picc line as per BETHANY Leal.
Original Note:
BETHANY Leal made aware of no x-ray taken to verify right picc. New order received for x-ray.
[2023-09-04 03:21] VITALS: BMI 20.9
[2023-09-04 07:00] VITALS: BP 115/55
[2023-09-04 07:53] LABS: Hematocrit 23.2 % (37.0-47.0); Hemoglobin 7.3 g/dL (12.0-16.0); Mean Corp Hgb Conc. 31.5 g/dL (33.0-37.0); Mean Corpuscular Volume 95.5 fL (81.0-99.0); Mean Platelet Volume 11.9 fL (7.4-10.4); Platelet Count 150 10^3/uL (130-400); Red Blood Cell Count 2.43 10^6/uL (4.20-5.40); Red Cell Dist. Width 22.5 % (11.5-14.5); White Blood Cell Count 3.5 10^3/uL (4.8-10.8)
--- NOTE | 2023-09-04 08:30 | W.PN.HOSP.TC ---
Addendum entered and electronically signed by Ronal Kramer MD 09/04/23 18:18:
Change oral to IV abx. No TPN ordered since admission so can't ordered after 2 pm, but patient trying to bring own TPN and discussed with RN who will check with pharmacy if can run her own tpn tonite.
Original Note:
Today's Communication/Plan
-
GI and surgery eval. CLD.
Assessment / Plan
Assessment / Plan
Physical exam:
General: chronically ill
HEENT: Normocephalic, Atraumatic and Moist Mucous Membranes
Respiratory: Clear to Auscultation; Negative Wheezes, Rales or Rhonchi
Cardiac: Regular Rhythm and S1/S2
GI: Soft, mildly tender and distended. Peg in place
Musculoskeletal: Erythema RLE but no warmth or tenderness. No Clubbing, No Cyanosis and No Edema
Neuro: Awake, Alert and Oriented
Psych: Calm
A/P:
Ileus/ No Small Bowel Obstruction
-Consult General Surgery and GI-->input appreciated
-CLD and advance per GI. Stop IVF. On TPN at home-->will need to clarify if getting it here.
-G-Tube to gravity
-Supportive care. Reviewed f/u Xray
Dislodged G-Tube
-Tube replaced by ED - Tube check confirms placement of tube in the stomach
Cellulitis surrounding G-tube and RLE cellulitis:
-Agree with cephalexin short course
-F/u derm for LE if not improvement
Severe Systemic Scleroderma
Chronic Gastroparesis
TPN Dependence
-Continue TPN
Pulmonary Hypertension
-Resume sildenafil when able to take oral meds
Chronic HFpEF
-Monitor Is&Os and Daily Weights
CKD Stage III
-Creatinine at baseline
Anemia of Chronic Disease
-Hgb at baseline
Post-Surgical Hypothyroidism
-Resume Levothyroxine when able to take oral meds
Chronic LFTs Elevation
-LFT stable compared to prior
Anxiety/Depression
-Resume Remeron and Lorazepam when able to take oral meds
GERD
-Continue Protonix
DVT proph: SCDs
Code Status: Full Code
Anticipated Discharge: 24 - 48 hours
Subjective/Interval History
-
Date of Service: September 04, 2023
pte feels better, some ?leakage around peg but tube check study was ok. No cp/sob, no fever
Objective Data
-
Labs:
Laboratory Results
09/04/23
07:22
WBC 3.5 L
Hgb 7.3 L
Hct 23.2 L
Plt Count 150
Sodium Pending
Potassium Pending
Chloride Pending
Carbon Dioxide Pending
BUN Pending
Creatinine Pending
Glucose Pending
Calcium Pending
Vital Signs:
Vital Signs
Temp Pulse Resp BP Pulse Ox
98.0 F 80 18 115/55 97
09/04/23 07:00 09/04/23 07:00 09/04/23 07:00 09/04/23 07:00 09/04/23 07:00
I&O
09/03/23 09/04/23 09/05/23
06:59 06:59 06:59
Intake Total 600 / 600
Output Total 500 / 500
Balance -500 / -500 600 / 600
[2023-09-04 08:34] LABS: Blood Urea Nitrogen 35 mg/dl (7-17); Calcium 8.7 mg/dl (8.4-10.2); Carbon Dioxide 26 mmol/L (22-30); Chloride 108 mmol/L (98-107); Estimated Creatinine Clearance 38 ml/min; Glucose 85 mg/dl (70-99); Potassium 3.8 mmol/L (3.5-5.1); Sodium 138 mmol/L (135-145); eGFR > 60.00
[2023-09-04] MEDS: PROTONIX IV 40 MG IV ×2 (09:03→21:34)
[2023-09-04] MEDS: NSS (PRESERVATIVE FREE) 10 ML IV ×2 (09:03→21:34)
[2023-09-04] MEDS: CARAFATE SUSPENSION 1 GM PO ×2 (09:03→21:33)
[2023-09-04] MEDS: REVATIO 60 MG PO ×2 (09:03→21:37)
[2023-09-04 09:15] LABS: TSH 0.22 uIU/ml (0.47-4.68)
[2023-09-04 11:00] VITALS: BP 118/62
[2023-09-04 11:56] VITALS: BP 118/64; PULSE 89
[2023-09-04 12:14] VITALS: BP 118/64; PULSE 89
--- NOTE | 2023-09-04 12:33 | CON.GI ---
Addendum entered and electronically signed by Corrie Pan MD 09/04/23 15:55:
I saw and examined the patient.
The MANUFACTURING QUALITY ENGINEER's note was reviewed and I agree with the note.
Impression:
Dilated small bowel on CT
Dislodged G tube, now replaced 24 Fr by ER
cellulitis at G tube site
Scleroderma/Crest syndrome
Severe gastroparesis and small bowel dysmotility
Chronic TPN
plan
Clear liquid diet. Advance as tolerated
Keep G-tube to gravity
Clean G-tube site daily. Avoid keeping the bumper too tight or pull the tube
Surgical consultation reviewed-antibiotics recommended
Patient would like to go home soon. Okay to discharge from GI standpoint if tolerating diet. will s/o . Follow-up with Sam
Original Note:
Consultation
-
Date/Time Consultation Requested: 09/03/23 3644
Date/Time Consultation Performed: 09/04/23 1220
Requesting Provider: TSERING Ritchie
Performing Provider: Dr. Pan/BETHANY Cárdenas
Reason for Consultation: SBO
Medical History
Chief Complaint / HPI
Chief Complaint: pain around G tube site
History of Present Illness:
73-year-old female with history of severe systemic scleroderma with chronic gastroparesis and venting G-tube, TPN dependence, pulm hypertension, CKD, and chronic CHF. Patient gets most of GI care from her scleroderma and associated esophageal/small
bowel dysmotility from [facility], who presents to the ER with pain at site of G tube and inability to vent G tube for [address]. [address] of the abd and pelvis that showed fluid distention of the stomach and proximal small bowel with transition point
in the anterior left mid to lower quadrant suggesting SBO. The PEG balloon hub was straddling the abdominal wall soft tissues and distal tip of the tube situated at the peripheral margin of the gastric lumen. This was replaced by the ER. Tube check
was confirmed in the ER without any extravasation. She had repeat Abd XR this am that shows contrast within the distal colon today. She states that she is hungry. She denies any flatus yet. She states that she is having leakage from around her PEG
tube site. This is connected to gravity drainage and there is brown material in the bag. The patient states that she 'tightens the tube at home to 2 cm'. Currently the bumper was at 5 and is loose. Her abdomen is distended some on the left side but
the PEG tube bumper is able to be snugged up to 4 cm at this time. I asked her not to pull the tube to 2 cm as it became lodged in abdominal wall prior. She currently has a replacement PEG (24 Fr). There is no leaking on the gauze pads. The patient
denies any F, C, N, V, melena, hematochezia. She eats 'mushy food, like mashed potatoes' at home.
Past Medical History
Past Medical History: Other
Past Surgical History: Gynecological and Other
Social History
Tobacco: Non-Smoker
Alcohol: None
Family History
Family History: Other (No fam Hx GI malignancy or IBD)
Allergies / Home Medications
Allergy/AdvReac Type Severity Reaction Status Date / Time
amoxicillin Allergy diarrhea Verified 09/03/23 10:28
azithromycin [From Zithromax] Allergy itchy at Verified 09/03/23 10:28
IV site;
patient
has
tolerated
since
�Medication �Instructions �Recorded
Blink Eye Drops 1 drp BOTH EYES BID Eye Condition 09/03/23
Blink Eye Drops 1 drp BOTH EYES DAILYPRN PRN dry 09/03/23
eyes
Prime Sleep Supplement 1 tab PO HS Sleep 09/03/23
Unknown Vitamins/Supplements 1 dose IV HS Supplement 09/03/23
acetaminophen 500 mg oral powder 500 mg PO BIDPRN PRN mild pain 09/03/23
packet (Tylenol Extra Strength)
cholecalciferol (vitamin D3) 25 50 mcg PO QPM Supplement 09/03/23
mcg/drop (1,000 unit/drop) oral
drops
cyanocobalamin (vitamin B-12) 1,000 mcg IM QMONTH Supplement 09/03/23
1,000 mcg/mL injection solution
denosumab 60 mg/mL subcutaneous 60 mg SC [id number] Osteoporosis 09/03/23
syringe (Prolia)
diphenoxylate-atropine 2.5 1 tab PO TIDPRN PRN diarrhea 09/03/23
mg-0.025 mg tablet
estradiol 0.01% (0.1 mg/gram) 1 appful vaginal .2 TIMES A WEEK 09/03/23
vaginal cream (Estrace) Hormonal Agent
famotidine 40 mg tablet 40 mg PO HS Gastrointestinal Issue 09/03/23
fluocinonide 0.05 % topical 1 applic topical .2-3 TIMES A WEEK 09/03/23
solution PRN scalp
furosemide 10 mg/mL injection 40 mg IV DAILYPRN PRN edema 09/03/23
solution
furosemide 20 mg tablet 40 mg PO DAILY Fluid 09/03/23
Retention/Swelling
ketoconazole 2 % topical cream 1 applic topical BID PRN 09/03/23
groin/vaginal area
levothyroxine 20 mcg/mL oral 560 mcg PO DAILY@0700 Thyroid 09/03/23
solution (Thyquidity)
mirtazapine 30 mg disintegrating 30 mg PO HS Mental Health/Anxiety 09/03/23
tablet
ondansetron HCl 2 mg/mL 16 mg IV HS Nausea 09/03/23
intravenous solution
pantoprazole 40 mg intravenous 40 mg IV BID Gastrointestinal Issue 09/03/23
solution
sildenafil (pulm.hypertension) 20 60 mg PO BID Pulmonary hypertension 09/03/23
mg tablet
sodium chloride 0.9 % 1 ea IV QPM flush 09/03/23
sucralfate 100 mg/mL oral 10 ml PO BID Gastrointestinal Issue 09/03/23
suspension
sucralfate 100 mg/mL oral 10 ml PO DAILYPRN PRN stomach 09/03/23
suspension ulcers
Review of Systems
-
All other systems: A 12 pt ROS was Negative except as stated above in HPI
Vital Signs
Temp Pulse Resp BP Pulse Ox
98.0 F 80 18 115/55 97
09/04/23 07:00 09/04/23 07:00 09/04/23 07:00 09/04/23 07:00 09/04/23 07:00
Physical Exam
Exam
General: No Apparent Distress
HEENT: Anicteric
Respiratory: Clear (anterior)
Cardiac: Regular Rhythm
GI: Soft, Non Tender, Normal Bowel Sounds, Tender (mild tenderness LUQ) and Other (mild distention LUQ, PEG site un LUQ mild redness skin, bumper at 5 cm, tightened to 4 cm secondary to abd distention. )
Skin: Warm and Dry
Neuro: AO x 3
Psych: Calm
Results
WBC 3.5 10^3/uL (4.8-10.8) L 09/04/23 07:22
Hgb 7.3 g/dL (12.0-16.0) L 09/04/23 07:22
Hct 23.2 % (37.0-47.0) L 09/04/23 07:22
MCV 95.5 fL (81.0-99.0) 09/04/23 07:22
Plt Count 150 10^3/uL (130-400) 09/04/23 07:22
Absolute Neuts (auto) 4.9 10^3/uL (1.4-6.5) 09/03/23 11:24
Sodium 138 mmol/L (135-145) 09/04/23 07:22
Potassium 3.8 mmol/L (3.5-5.1) 09/04/23 07:22
Chloride 108 mmol/L (98-107) H 09/04/23 07:22
Carbon Dioxide 26 mmol/L (22-30) 09/04/23 07:22
BUN 35 mg/dl (7-17) H 09/04/23 07:22
Creatinine 0.9 mg/dL (0.6-1.0) 09/04/23 07:22
Calcium 8.7 mg/dl (8.4-10.2) 09/04/23 07:22
Total Bilirubin 0.6 mg/dl (0.2-1.3) 09/03/23 12:14
AST 53 U/L (14-36) H 09/03/23 12:14
ALT 35 U/L (0-35) 09/03/23 12:14
Alkaline Phosphatase 225 U/L (38-126) H 09/03/23 12:14
Diagnostic Image Results:
CT Abd/Pelvis 09/03/23:
IMPRESSION:
1) Trace bilateral pleural effusions. Mild atelectasis. Fluid distention of the distal esophagus, likely reflecting reflux.
2) Percutaneous gastrostomy tube balloon hub straddling the abdominal wall soft tissues; the distal tip of the tube appears to be situated at the peripheral margin of the gastric lumen.. Mild soft tissue stranding surrounding the balloon which may
be reactive. Cannot exclude inflammatory changes. Trace fluid associated with the adjacent peritoneal margin. However, no focal collection or evidence to suggest abscess.
3) Fluid distention of the stomach and proximal small bowel with transition in the anterior left mid to lower quadrant, suggesting small bowel obstruction.
4) suspect chronic diverticulosis associated with inferior position/low position cecum in the right hemipelvis.
5) Trace upper abdominal ascites most pronounced adjacent to the spleen. No focal collection or abscess. No free air.
6) mild fatty infiltration of liver.
7) mild splenomegaly.
Tube check 09/03/23:
Examination confirms placement of the percutaneous gastrostomy tube tip within the stomach. No extraluminal extravasation.
CXR 09/04/23:
IMPRESSION:
1. Right upper extremity PICC in position.
2. Hypoaerated lungs without consolidation.
Abd XR 09/04/23:
IMPRESSION: Improved as compared with the prior CT. Contrast from prior tube study within the distal colon. No clear abnormally dilated bowel loops identified radiographically.
Electronically signed by Thaddeus Epstein DO, 09/04/2023 9:23 AM
Prior GI Procedures:
EGD: [facility] 01/16/2023 ulceration and granularity in the middle third of the esophagus and upper third of the esophagus. Mucosa suggestive of Morales's esophagus. Ulcer in the stomach. Injected and treated with
thermal therapy. Visible vessel suggested recent bleeding. Hiatal hernia.
Colonoscopy: Attempted on 01/16/2023 [facility] preparation was poor stool seen in the rectum therefore procedure aborted
EGD:2017 with erythema in antrum, medium HH, variable Z line , monilial esophagitis.�
Colonoscopy: 2017 with poor prep non thrombosed hemorrhoids, stool in colon diverticulosis and patent anastomosis.
Assessment / Plan
-
73-year-old female with history of severe systemic scleroderma with chronic gastroparesis and venting G-tube, TPN dependence, pulm hypertension, CKD, and chronic CHF. Patient gets most of GI care from her scleroderma and associated esophageal/small
bowel dysmotility from [facility], who presents to the ER with pain at site of G tube and inability to vent G tube for [address]. [address] of the abd and pelvis that showed fluid distention of the stomach and proximal small bowel with transition point
in the anterior left mid to lower quadrant suggesting SBO. The PEG balloon hub was straddling the abdominal wall soft tissues and distal tip of the tube situated at the peripheral margin of the gastric lumen. This was replaced by the ER. Tube check
was confirmed in the ER without any extravasation. She had repeat Abd XR this am that shows contrast within the distal colon today.
Impression:
Dilated small bowel on CT
Dislodged G tube, now replaced 24 Fr by ER
Scleroderma/Crest syndrome
Severe gastroparesis and small bowel dysmotility
Chronic TPN
Plan:
-Discussed with surgery ok to start clears
-Continue G tube for venting
-Discussed with patient not to pull on bumper as 2 past admissions internal balloon was in wall of abdomen
-It appears as patient takes Lomotil at home. Consider reducing this?
-Further recommendations to be forthcoming
-
-
Thank you for consultation and allowing me to participate in the patient's care. Please call the pest control technician GI physician during the after hours with any questions or concerns.
--- NOTE | 2023-09-04 13:01 | CON.GS ---
Addendum entered and electronically signed by Martín Logan MD 09/04/23 14:16:
I saw and examined the patient independently.
The Community Facilitator's note was reviewed and I agree with the note, assessment and plan except where noted below.
Comment: This is a 73-year-old female with a history of scleroderma and chronic bowel dysmotility on chronic TPN and venting G-tube for 5 years following at [facility] who presents with abdominal pain and discomfort as well as tube malfunction. She
was evaluated in our ED and had her G-tube replaced. She notes no recent trauma, but has had issues with the drain since it was last replaced at [facility]. The surrounding skin is fairly red and there is some leakage around the tube currently
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
Recommend a 10-day course of antibiotics for the surrounding cellulitis around the G-tube site.
Instructed patient and that the G-tube tract is well-healed and it does not need to be cinched down tight. It should be freely mobile to spend and the bumper should not be compressed tight against the skin which can cause soft tissue
necrosis, dilation of the tract and leakage which appears to be her main issue currently.
Okay to vent G-tube to gravity intermittently.
Okay for p.o. diet ad shakira.
Remainder of care per primary.
If patient is interested in, can follow-up with us as an outpatient however given her longstanding care at [facility], reasonable to follow-up there.
General surgery will sign off for now, please call with any questions or concerns
Original Note:
Medical History
-
Chief Complaint: Pain
History of Present Illness:
Ms. Wiggins is a 73 yo female with a h/o scleroderma and chronic gastroparesis for which she follows at [facility] with Dr. Martini. She has been on chronic TPN with venting G-tube for management for over 5 years now. She recently at G-tube exchanged a few
weeks ago as an outpatient and notes that she has had abdominal discomfort and minimal outputs from the tube since. She presented with pain and drainage around the tube. Tube was dislodged on imaging and replaced in the ED with XR confirming good
position. She notes relief in pain with the tube draining gastric contents into drainage bag currently. She notes that at home, she eats a soft diet and keeps the G-tube to gravity drainage ATC. She has cycled TPN in the evening. At baseline, she
reports she passes small liquid stools without much control and does not usually pass much gas. She notes that she is back to baseline in this respect, except larger amounts of liquid stool have been passing this am. She denies nausea or vomiting.
She denies fevers or chills.
Past Medical History
Past Medical History: CHF (HFpEF, pulmonary HTN), Hypothyroidism, Renal Failure (CKD-3, anemia of chronic disease) and Other (Scleroderma, severe gastroparesis with venting peg on TPN, )
Past Surgical History: Gynecological (hysterectomy ), Hernia Repair, Orthopedic (right hip replacement, left hip ORIF) and Other (thyroidectomy)
Social History
Tobacco: Non-Smoker
Alcohol: None
Family History
Family History: Reviewed & Not Pertinent
Allergies / Home Medications
Allergy/AdvReac Type Severity Reaction Status Date / Time
amoxicillin Allergy diarrhea Verified 09/03/23 10:28
azithromycin [From Zithromax] Allergy itchy at Verified 09/03/23 10:28
IV site;
patient
has
tolerated
since
�Medication �Instructions �Recorded �Confirmed �Type
Blink Eye Drops 1 drp BOTH EYES BID Eye Condition 09/03/23 09/03/23 History
Blink Eye Drops 1 drp BOTH EYES DAILYPRN PRN dry 09/03/23 09/03/23 History
eyes
Prime Sleep Supplement 1 tab PO HS Sleep 09/03/23 09/03/23 History
Unknown Vitamins/Supplements 1 dose IV HS Supplement 09/03/23 09/03/23 History
acetaminophen 500 mg oral powder 500 mg PO BIDPRN PRN mild pain 09/03/23 09/03/23 History
packet (Tylenol Extra Strength)
cholecalciferol (vitamin D3) 25 50 mcg PO QPM Supplement 09/03/23 09/03/23 History
mcg/drop (1,000 unit/drop) oral
drops
cyanocobalamin (vitamin B-12) 1,000 mcg IM QMONTH Supplement 09/03/23 09/03/23 History
1,000 mcg/mL injection solution
denosumab 60 mg/mL subcutaneous 60 mg SC [id number] Osteoporosis 09/03/23 09/03/23 History
syringe (Prolia)
diphenoxylate-atropine 2.5 1 tab PO TIDPRN PRN diarrhea 09/03/23 09/03/23 History
mg-0.025 mg tablet
estradiol 0.01% (0.1 mg/gram) 1 appful vaginal .2 TIMES A WEEK 09/03/23 09/03/23 History
vaginal cream (Estrace) Hormonal Agent
famotidine 40 mg tablet 40 mg PO HS Gastrointestinal Issue 09/03/23 09/03/23 History
fluocinonide 0.05 % topical 1 applic topical .2-3 TIMES A WEEK 09/03/23 09/03/23 History
solution PRN scalp
furosemide 10 mg/mL injection 40 mg IV DAILYPRN PRN edema 09/03/23 09/03/23 History
solution
furosemide 20 mg tablet 40 mg PO DAILY Fluid 09/03/23 09/03/23 History
Retention/Swelling
ketoconazole 2 % topical cream 1 applic topical BID PRN 09/03/23 09/03/23 History
groin/vaginal area
levothyroxine 20 mcg/mL oral 560 mcg PO DAILY@0700 Thyroid 09/03/23 09/03/23 History
solution (Thyquidity)
mirtazapine 30 mg disintegrating 30 mg PO HS Mental Health/Anxiety 09/03/23 09/03/23 History
tablet
ondansetron HCl 2 mg/mL 16 mg IV HS Nausea 09/03/23 09/03/23 History
intravenous solution
pantoprazole 40 mg intravenous 40 mg IV BID Gastrointestinal Issue 09/03/23 09/03/23 History
solution
sildenafil (pulm.hypertension) 20 60 mg PO BID Pulmonary hypertension 09/03/23 09/03/23 History
mg tablet
sodium chloride 0.9 % 1 ea IV QPM flush 09/03/23 09/03/23 History
sucralfate 100 mg/mL oral 10 ml PO BID Gastrointestinal Issue 09/03/23 09/03/23 History
suspension
sucralfate 100 mg/mL oral 10 ml PO DAILYPRN PRN stomach 09/03/23 09/03/23 History
suspension ulcers
Review of Systems
-
History Source: Patient
All other systems: Negative unless noted
A 10 point review of systems was completed, and was negative except as per HPI.
Physical Exam
Vital Signs
Temp Pulse Resp BP Pulse Ox
98.0 F 80 18 115/55 97
09/04/23 07:00 09/04/23 07:00 09/04/23 07:00 09/04/23 07:00 09/04/23 07:00
09/03/23 09/04/23 09/05/23
06:59 06:59 06:59
Actual Weight 46.947 kg
Body Mass Index (BMI) 20.9
Lab Results
09/04/23 07:22
09/04/23 07:22
WBC 3.5 10^3/uL (4.8-10.8) L 09/04/23 07:22
Hgb 7.3 g/dL (12.0-16.0) L 09/04/23 07:22
Hct 23.2 % (37.0-47.0) L 09/04/23 07:22
Plt Count 150 10^3/uL (130-400) 09/04/23 07:22
Abs Immat Gran (auto) 0.0 10^3/uL (0-0.05) 09/03/23 11:24
Neutrophils % 76.3 % (42.2-75.2) H 09/03/23 11:24
Physical Exam
General: Well Developed and Well Nourished
HEENT: Moist Mucous Membranes
Respiratory: Non Labored Respirations
GI: Soft, Non Tender, Distended (mild) and Other (g-tube draining gastric contents. bumper not flush with skin. no active drainage noted but some surrounding erythema)
Neuro: Awake, Alert and AO x 3
Psych: Calm
Assessment / Plan
-
73 yo female with a h/o scleroderma and chronic gastroparesis for which she follows at [facility] with Dr. Martini. She has been on chronic TPN with venting G-tube for management for over 5 years now. She presented yesterday with dislodged PEG tube with
localized pain and irritation. Tube was replaced in the ED with XR confirming placement, now draining well with resolution of pain. CT imaging on presentation with significant small bowel distention noted secondary to non-draining g-tube/GI
dysmotility. F/U XR study with improvement passage of contrast into distal colon with passage of stool ruling out obstruction. She has had relief of pain with tube exchange and is back to baseline motility. AFVSS. Labs stable. Cellulitis noted to
skin surrounding tube.
No surgery planned, symptoms resolving with replacement of g-tube. Recommend OP follow up with primary GI.
--Ok to resume home diet of soft foods/liquids
--Continue with g-tube draining to gravity
--G-Tube management as per GI team
--Will start PO keflex 500mg QID for cellulitis to skin at tube site
Surgery to sign off, please call with questions/concerns
[2023-09-04] MEDS: D5/0.9% SODIUM CHLORIDE 1000 IV (13:54)
--- NOTE | 2023-09-04 17:14 | CM ---
Alert awake oriented patient who lives with her Joel and son Santo. They live in 2 story home with ramp to enter and first floor set up.She is independent in driving and in all activities of daily living.She has a G tube that
dislodged.Offered VN she declined.
No adaptive devices
[facility] VN hx/[facility] hx
[facility]
PCP Dr Goldstein
PLAN Home declined VN
[2023-09-04] MEDS: FLUSH (NSS) 2 FLUSH IV (18:45)
[2023-09-04] MEDS: ANCEF 10 IV (18:45)
[2023-09-04] MEDS: REMERON ODT 30 MG PO (21:36)
[2023-09-04] MEDS: NSS 500 IV (22:56)
[2023-09-04 23:17] VITALS: BP 108/60
[2023-09-05] MEDS: ANCEF 10 IV ×2 (01:56→10:21)
[2023-09-05] MEDS: MELATONIN 5 MG PO (02:45)
[2023-09-05 05:20] LABS: Hematocrit 23.3 % (37.0-47.0); Hemoglobin 7.4 g/dL (12.0-16.0); Mean Corp Hgb Conc. 31.8 g/dL (33.0-37.0); Mean Corpuscular Hgb 30.2 pg (27.0-31.0); Mean Corpuscular Volume 95.1 fL (81.0-99.0); Mean Platelet Volume 11.1 fL (7.4-10.4); Platelet Count 169 10^3/uL (130-400); Red Blood Cell Count 2.45 10^6/uL (4.20-5.40); Red Cell Dist. Width 21.9 % (11.5-14.5); White Blood Cell Count 4.8 10^3/uL (4.8-10.8)
[2023-09-05 06:38] LABS: Blood Urea Nitrogen 24 mg/dl (7-17); Calcium 8.6 mg/dl (8.4-10.2); Carbon Dioxide 21 mmol/L (22-30); Chloride 112 mmol/L (98-107); Estimated Creatinine Clearance 38 ml/min; Glucose 39 mg/dl (70-99); Potassium 3.4 mmol/L (3.5-5.1); Sodium 142 mmol/L (135-145); eGFR > 60.00
[2023-09-05] MEDS: NON-FORMULARY ITEM 560 MCG PO (06:42)
[2023-09-05] MEDS: DEXTROSE 50% SYRINGE 12.5 GRAMS IV (06:47)
--- NOTE | 2023-09-05 06:53 | PTCARENOTE ---
Pt's glucose 39, asymptomatic. Jael SIMS notified, dextrose ordered.
[2023-09-05 07:00] VITALS: BP 110/61
[2023-09-05 07:24] LABS: Glucose - Point of Care 106 mg/dl (70-99)
[2023-09-05] MEDS: REVATIO 60 MG PO (07:51)
[2023-09-05] MEDS: CARAFATE SUSPENSION 1 GM PO (07:51)
[2023-09-05] MEDS: PROTONIX IV 40 MG IV (07:51)
[2023-09-05] MEDS: NSS (PRESERVATIVE FREE) 10 ML IV (07:51)
[2023-09-05 08:15] VITALS: BMI 20.9
--- NOTE | 2023-09-05 08:54 | W.PN.HOSP.TC ---
Today's Communication/Plan
-
d/c planning today
Assessment / Plan
Assessment / Plan
Physical exam:
General: chronically ill
HEENT: Normocephalic, Atraumatic and Moist Mucous Membranes
Respiratory: Clear to Auscultation; Negative Wheezes, Rales or Rhonchi
Cardiac: Regular Rhythm and S1/S2
GI: Soft, Non tender and non distended. Peg in place
Musculoskeletal: rash RLE but no warmth or tenderness. No Clubbing, No Cyanosis and No Edema
Neuro: Awake, Alert and Oriented
Psych: Calm
A/P:
Ileus/ No Small Bowel Obstruction
-Consult General Surgery and GI-->input appreciated
-Low residue diet now. TPN was going to be order for today but might not need it if going home
-G-Tube to gravity
-Supportive care. Reviewed f/u Xray
Dislodged G-Tube/ Leakage from G-Tube
-Tube replaced by ED - Tube check confirms placement of tube in the stomach
- Discussed with GI and pte has an appt with IR at [facility] tomorrow so they can address if tube needs to be change if leak persists-Patient eager to home today and wants to make it to her appt tomorrow. Will d/c today
Cellulitis surrounding G-tube although most likely contact dermatitis and RLE cellulitis although most likely stasis dermatitis:
-If we cont cephalexin would only do a short course
Severe Systemic Scleroderma
Chronic Gastroparesis
TPN Dependence
-Continue TPN
Pulmonary Hypertension
-Resume sildenafil when able to take oral meds
Chronic HFpEF
-Monitor Is&Os and Daily Weights
CKD Stage III
-Creatinine at baseline
Anemia of Chronic Disease
-Hgb at baseline
Post-Surgical Hypothyroidism
-Resume Levothyroxine when able to take oral meds
Chronic LFTs Elevation
-LFT stable compared to prior
Anxiety/Depression
-Resume Remeron and Lorazepam when able to take oral meds
GERD
-Continue Protonix
DVT proph: SCDs
Code Status: Full Code
Anticipated Discharge: Today
Subjective/Interval History
-
Date of Service: September 05, 2023
pte feel better overall but c/o leakage around g-tube
Objective Data
-
Labs:
Laboratory Results
09/05/23
04:40
WBC 4.8
Hgb 7.4 L
Hct 23.3 L
Plt Count 169
Sodium 142
Potassium 3.4 L
Chloride 112 H
Carbon Dioxide 21 L
BUN 24 H
Creatinine 0.9
Glucose 39 L*
Calcium 8.6
Vital Signs:
Vital Signs
Temp Pulse Resp BP Pulse Ox
97.6 F 94 18 110/61 97
09/05/23 07:00 09/05/23 07:00 09/05/23 07:00 09/05/23 07:00 09/05/23 07:00
I&O
09/04/23 09/05/23 09/06/23
06:59 06:59 06:59
Intake Total 1520 / 1520
Output Total 500 / 500 350 / 350
Balance -500 / -500 1170 / 1170
[2023-09-05] MEDS: KCL 270 MEQ IV (09:07)
[2023-09-05] MEDS: D5/0.45%NSS with KCL 20 MEQ 1000 IV (09:08)
[2023-09-05 09:27] LABS: Glucose - Point of Care 76 mg/dl (70-99)
[2023-09-05 10:17] LABS: ALT (SGPT) 21 U/L (0-35); AST (SGOT) 51 U/L (14-36); Albumin 2.2 g/dl (3.5-5.0); Alkaline Phosphatase 227 U/L (38-126); Magnesium 1.9 mg/dl (1.6-2.3); Total Bilirubin 0.6 mg/dl (0.2-1.3); Total Protein 5.1 g/dl (6.3-8.2); Triglycerides 174 mg/dl (10-149)
--- NOTE | 2023-09-05 11:12 | PTOTSP ---
Speech Therapy
No gross signs of aspiration. Use of chin tuck recommended after last VSE due to instances of laryngeal penetration.
Recommend
1. Regular solids (patient ok with choosing soft/easier to eat foods) and thin liquids w/ chin tuck.
2. Meds with liquid.
3. No further ST indicated.
--- NOTE | 2023-09-05 11:20 | W.PN.GI.CBS2 ---
Addendum entered and electronically signed by BETHANY Pleitez 09/05/23 13:00:
-
Addendum entered and electronically signed by BETHANY Pleitez 09/05/23 12:43:
reviewed with Dr. Kramer. Pt wishes for discharge as due for follow up at [facility] tomorrow as they have been managing tube for patient since placement. Should return if leakage continues.
Original Note:
Today's Communication / Plan
-
still with increased leakage around tube
currently low residue diet
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
reviewed with patient need to keep peg site dry-- change pad every 1-2 hours to all skin to heal
cont PPI BID as this can also decreased the acidity of drainage
ideally eventually downsize to 20 or 22 monegasque tube- upsizing peg does not help with leakage
trace pink-red tinged fluid in tube ? Carafate ingested vs blood cont to monitor-- cont to vent
discussed with patient on rare occasion leakage continues and removal of tube needed to heal site with replacement of new tube several weeks later
cont abx
-It appears as patient takes Lomotil at home. Consider reducing this or avoidance on discharge
Assessment / Plan
-
73-year-old female with history of severe systemic scleroderma with chronic gastroparesis and venting G-tube, TPN dependence, pulm hypertension, CKD, and chronic CHF. Patient gets most of GI care from her scleroderma and associated esophageal/small
bowel dysmotility from [facility], who presents to the ER with pain at site of G tube and inability to vent G tube for [address]. [address] of the abd and pelvis that showed fluid distention of the stomach and proximal small bowel with transition point
in the anterior left mid to lower quadrant suggesting SBO. The PEG balloon hub was straddling the abdominal wall soft tissues and distal tip of the tube situated at the peripheral margin of the gastric lumen. This was replaced by the ER. Tube check
was confirmed in the ER without any extravasation. She had repeat Abd XR this am that shows contrast within the distal colon today.
Impression:
Dilated small bowel on CT
Dislodged G tube, now replaced 24 Fr by ER
peg leakage
Scleroderma/Crest syndrome
Severe gastroparesis and small bowel dysmotility
Chronic TPN
Plan:
still with increased leakage around tube
currently low residue diet
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
reviewed with patient need to keep peg site dry-- change pad every 1-2 hours to all skin to heal
cont PPI BID as this can also decreased the acidity of drainage
ideally eventually downsize to 20 or 22 monegasque tube- upsizing peg does not help with leakage
trace pink-red tinged fluid in tube ? Carafate ingested vs blood cont to monitor-- cont to vent
discussed with patient on rare occasion leakage continues and removal of tube needed to heal site with replacement of new tube several weeks later
cont abx
-It appears as patient takes Lomotil at home. Consider reducing this or avoidance on discharge
Subjective
Subjective
Date of Service: September 05, 2023
asked to see again for leakage and bleeding
Objective
Data Reviewed
Laboratory Data:
Laboratory Results
09/05/23 04:40
09/05/23 09:12
Laboratory Results
Phosphorus Cancelled 09/05/23 09:12
Magnesium Cancelled 09/05/23 09:12
Total Bilirubin Cancelled 09/05/23 09:12
AST Cancelled 09/05/23 09:12
ALT Cancelled 09/05/23 09:12
Alkaline Phosphatase Cancelled 09/05/23 09:12
Vital Signs and I&O:
Vital Signs
Temp Pulse Resp BP Pulse Ox
97.6 F 94 18 110/61 97
09/05/23 07:00 09/05/23 07:00 09/05/23 07:00 09/05/23 07:00 09/05/23 07:00
I&O
09/04/23 09/05/23 09/06/23
06:59 06:59 06:59
Intake Total 1520 / 1520
Output Total 500 / 500 350 / 350
Balance -500 / -500 1170 / 1170
Physical Exam
Physical Exam
HEENT: Anicteric and Moist mucous membranes
Cardiology: Normal Sinus Rhythm
Pulmonary: Clear
GI: Soft, Non Distended and Tender (mild with some redness around peg site-- #24 monegasque tube )
Extremities: No Edema
Neuro: Non Focal
[2023-09-05] MEDS: TYLENOL 650 MG PO (11:26)
[2023-09-05 11:30] LABS: Glucose - Point of Care 79 mg/dl (70-99)
--- NOTE | 2023-09-05 12:47 | W.DCSUMMARY ---
Discharge Summary
Discharge Data
Date of Admission: 09/03/23
Date of Discharge: 09/05/23
-
Pending Results: No
Hospital Course
Patient 73 years old female with history of severe systemic scleroderma with chronic gastroparesis and venting G-tube, TPN dependence, pulm hypertension, CKD, CHF, presented to the hospital with pain at the site of the G-tube and inability of NG
tube for 2 days. Patient had a CT scan of the abdomen pelvis showed some fluid distention of the stomach and proximal small bowel with transition point in the anterior left mid to lower quadrant suggesting small bowel obstruction. PEG balloon was
straddling the abdominal soft tissues and distal tip of the tube at the peripheral margin of the gastric lumen and this was replaced by the ER. Subsequently she had a tube check that confirmed ER placement without any extravasation. She had repeat
abdominal x-ray and contrast was well seen within the distal colon. GI and surgery were consulted. GI and surgery were okay for her to be started on diet. She did not exhibit any signs of obstruction clinically. She did well with her diet. Due
to the erythema surrounding the tube site surgery started her on antibiotics and we will continue with short course. She also had some rash in her right lower extremity that looks more like stasis dermatitis but also there is a possibility of mild
cellulitis and same antibiotics will take care of this. Of note, patient had some leakage surrounding the G-tube. I discussed with GI and initially we were going to watch her to see if the leakage would remain or get worse to further evaluate our
options, but patient adamantly wants to go home and she actually has an appointment with her IR to place the G-tube at [place] the following day. After discussing with GI they were okay with her being discharge and follow-up as outpatient. She
also had mild rectal abnormalities due to the fact that she did not receive her normal TPN. She received glucose and fluids as well as replacement of electrolytes. We were going to reorder her TPN but since she is going home she will resume this
at home. Otherwise, patient hemodynamically stable tolerating diet and back to her baseline. No other events were noticed. She has been discharged in stable condition today.
Discharge duration: 45 minutes
Discharge Plan
-
Patient Disposition: Home with Home Care
Discharge Diagnosis/Procedures: Ileus. Dislodged G-Tube. Leakage from G-Tube. Cellulitis G-tube site.
Diet: Low Cholesterol
Activity: As tolerated
Blood Work: PCP to order CBC, CMP within 1 week
Referrals:
Corrie Pan MD [Active] - in two to four weeks
Toyin Goldstein MD [Family Provider] - in less than 1 week
Prescriptions:
New
cephalexin 250 mg/5 mL suspension for reconstitution
250 mg PO QID 5 Days Qty: 100 0RF
Continued
furosemide 10 mg/mL solution
40 mg IV DAILYPRN PRN (Reason: edema)
Patient Comments:
09/03/2023, via picc line.
mirtazapine 30 mg Tablet,Disintegrating
30 mg PO HS
sucralfate 100 mg/mL Suspension
10 ml PO BID
sucralfate 100 mg/mL Suspension
10 ml PO DAILYPRN PRN (Reason: stomach ulcers)
ondansetron HCl 2 mg/mL solution
16 mg IV HS
Patient Comments:
09/03/2023, via picc line.
famotidine 40 mg Tablet
40 mg PO HS
Patient Comments:
09/03/2023, placed in TPN bag per pt.
pantoprazole 40 mg recon soln
40 mg IV BID
Patient Comments:
09/03/2023, via picc line.
diphenoxylate-atropine 2.5-0.025 mg Tablet
1 tab PO TIDPRN PRN (Reason: diarrhea)
cyanocobalamin (vitamin B-12) 1,000 mcg/mL Solution
1,000 mcg IM QMONTH
furosemide 20 mg Tablet
40 mg PO DAILY
sodium chloride 0.9 % Parenteral Solution
1 ea IV QPM
Patient Comments:
09/03/2023, via picc line.
fluocinonide 0.05 % Solution
1 applic TOPICAL .2-3 TIMES A WEEK PRN (Reason: scalp)
estradiol [Estrace] 0.01 % (0.1 mg/gram) Cream
1 appful VAGINAL .2 TIMES A WEEK
ketoconazole 2 % Cream
1 applic TOPICAL BID PRN (Reason: groin/vaginal area)
sildenafil (pulm.hypertension) 20 mg Tablet
60 mg PO BID
Prolia 60 mg/mL Syringe
60 mg SC [id number]
Patient Comments:
09/03/2023, next dose due in September per pt.
cholecalciferol (vitamin D3) 25 mcg/drop ( 1,000 unit/drop) Drops
50 mcg PO QPM
Thyquidity 20 mcg/mL Solution
560 mcg PO DAILY@0700
Tylenol Extra Strength 500 mg Powder In Packet
500 mg PO BIDPRN PRN (Reason: mild pain)
Blink Eye Drops
1 drp BOTH EYES BID
Blink Eye Drops
1 drp BOTH EYES DAILYPRN PRN (Reason: dry eyes)
Prime Sleep Supplement
1 tab PO HS
Patient Comments:
09/03/2023, contains melatonin.
Unknown Vitamins/Supplements
1 dose IV HS
Patient Comments:
09/03/2023, via picc line; in TPN bag per pt.; unsure of which vitamins and supplements.
Discharge Orders:
Discharge Patient (As Directed); Ordered 09/05/23
Ordered By: Ronal Kramer
Discharge Date and Time
Discharge Date/Time: 09/05/23 16:47
Print Language: MACEDONIAN
--- NOTE | 2023-09-05 13:02 | CM ---
Case management following for d/c planning
Pt for d/c today
Has ride home
Declined VN
Discussed IMM
Plan - home no needs
[2023-09-05 15:00] VITALS: BP 116/60
--- NOTE | 2023-09-05 19:01 | PTCARENOTE ---
this Rn placed a call to Joel, pts spouse at [phone], spoke to him directly. Informed that pts home levothyroxine will be at the front of [address] with the shipping/receiving clerk for poultry picker.
== END 2023-09-05 16:47 | disposition home or self-care (01) | DRG 394 ==
LOC: 3 WEST ACU 17:59
PROVIDERS: Physician Assistant; Physician Assistant Medical; Radiology Vascular & Interventional Radiology; ADMITTING PHYSICIAN Student in an Organized Health Care Education/Training Program; ATTENDING PHYSICIAN Hospitalist; CONSULT PHYSICIAN Internal Medicine Gastroenterology; CONSULT PHYSICIAN Surgery; EMERGENCY PHYSICIAN Emergency Medicine; FAMILY PHYSICIAN Family Medicine
PROC: 0D20XUZ Change Feeding Device in Upper Intestinal Tract, External Approach (ICD-10-PCS; 2023-09-03)
PROC: 02HV33Z Insertion of Infusion Device into Superior Vena Cava, Percutaneous Approach (ICD-10-PCS; 2023-09-04)
PROC: 3E0436Z Introduction of Nutritional Substance into Central Vein, Percutaneous Approach (ICD-10-PCS; 2023-09-05)
DX: K94.23 Gastrostomy malfunction (principal); I50.32 Chronic diastolic (congestive) heart failure; J98.11 Atelectasis; K56.7 Ileus, unspecified; L03.311 Cellulitis of abdominal wall; L03.115 Cellulitis of right lower limb; K94.22 Gastrostomy infection; K22.4 Dyskinesia of esophagus; M34.9 Systemic sclerosis, unspecified; I73.00 Raynaud's syndrome without gangrene; E89.0 Postprocedural hypothyroidism; K31.84 Gastroparesis; M34.1 CR(E)ST syndrome; D63.8 Anemia in other chronic diseases classified elsewhere; I27.20 Pulmonary hypertension, unspecified; D63.1 Anemia in chronic kidney disease; N18.30 Chronic kidney disease, stage 3 unspecified; K21.9 Gastro-esophageal reflux disease without esophagitis; R21 Rash and other nonspecific skin eruption; K76.0 Fatty (change of) liver, not elsewhere classified; F41.9 Anxiety disorder, unspecified; F32.A Depression, unspecified; R16.1 Splenomegaly, not elsewhere classified; Y84.8 Other medical procedures as the cause of abnormal reaction of the patient, or of later complication, without mention of misadventure at the time of the procedure; Y73.2 Prosthetic and other implants, materials and accessory gastroenterology and urology devices associated with adverse incidents; Y92.9 Unspecified place or not applicable; K30 Functional dyspepsia; M81.0 Age-related osteoporosis without current pathological fracture; Z96.641 Presence of right artificial hip joint; Z87.440 Personal history of urinary (tract) infections; Z88.1 Allergy status to other antibiotic agents; Z88.0 Allergy status to penicillin
CPT/HCPCS: 43762; 49465; 71045; 74018; 74177; 80048; 80053; 82962; 83735; 84100; 84443; 84478; 85025; 85027; 92610; 97162; 97166; 99285; Q9967

== ENCOUNTER 2023-09-18 10:51 | Outpatient (RCR) | payer MEDICARE, OTHER, SELFPAY ==
[2023-09-18 11:00] VITALS: BP 110/48
[2023-09-18 11:13] VITALS: BP 110/48
[2023-09-18 11:30] VITALS: BP 103/45
[2023-09-18 13:01] VITALS: BP 90/67
== END 2023-10-18 23:59 | disposition home or self-care (01) ==
LOC: OID 10:51
PROVIDERS: ATTENDING PHYSICIAN Internal Medicine Hematology & Oncology; FAMILY PHYSICIAN Family Medicine
DX: D47.2 Monoclonal gammopathy (principal)
CPT/HCPCS: 36430; 86850; 86900; 86901; 86920; P9016

== ENCOUNTER 2023-10-28 11:48 | Emergency (ER) | payer MEDICARE, OTHER, SELFPAY ==
[2023-10-28 11:50] VITALS: BP 127/64
--- NOTE | 2023-10-28 12:21 | ED.SKININJ ---
HPI-Injury
General
Chief Complaint: Head Injury
Source: patient and spouse
Exam Limitations: none
Time Seen by Provider: 10/28/23 12:07
Nursing documentation reviewed up to this point in time: agreed with
History of Present Illness-Injury
Initial Injury comments:
Patient to ED after fall in her barn. States her dog tripped her. Hit right forhead on cement floor. No LOC. Assisted up by spouse. Has large hematoma with 2 small lacerations to right forehead. Right elbow pain, posterior elbow skin tear,
right ant. knee skin tear, right ankle pain. Injury occurred just [employer]. No LOC. Complains of headache.
Past History
Past History
ED Past Medical History: Hypothyroidism, Other (Raynaud and scleroderma, Ascities, SBO, Spontanious Bacterial peritonitis, UTI, Fracture Femur, Chronic Nausea), Other (Uterine and rectal prolapse) and Other (Irritable bowel, takes Trulance)
ED Past Surgical History: Bowel resection, Brain (subdural hematoma), Gynecological (Hysterectomy), Orthopedic and Other (Hernia repair, thyroidectomy, vaginal prolapse, rectal prolapse)
Social History
Tobacco: Non-smoker
Alcohol: None
Drug: None
Personal:
Living: with family
Employment: Retired
Family History
Family History: Other (Noncontributory)
Review of Systems
Review of Systems
Allergies reviewed?: Yes
All Other Systems: ROS reviewed and negative except as documented in HPI and ROS
Constitutional: Reports no symptoms
EENT: Reports no symptoms
Respiratory: Reports no symptoms
Cardiac: Reports no symptoms
ABD/GI: Reports no symptoms
Musculoskeletal: Reports joint pain (right ankle pain)
Skin: Reports other (laceration x 2 right forehead, skin tear right posterior elbow, right ant. knee)
Neurological: Reports headache
Psychiatric: Reports no symptoms
Skin Exam
Laceration
Right forehead #1:
Length in cm: 1.5
Orientation: horizontal
Type of Laceration: simple
Any active bleeding?: no active bleeding
Distal skin color and temperature: normal-warm & good color
Normal distal neurovascular exam: Yes
Range of motion: full
Right forehead #2:
Length in cm: 1.5
Orientation: horizontal
Type of Laceration: simple
Any active bleeding?: no active bleeding
Distal skin color and temperature: normal-warm & good color
Normal distal neurovascular exam: Yes
Range of motion: full
Abrasion
Right Posterior Elbow:
Description of abrasion: superfical/clean
Right Anterior Knee:
Description of abrasion: superfical/clean
Right lower orbit:
Description of abrasion: superfical/clean
Phy Exam
General Physical Exam
General Presentation: well appearing and no apparent distress
General age: appears stated age
General Skin: warm and dry
General Habitus: normal
General Mental: alert
Eye Exam
Eye Exam: PERRL, EOMI and conjunctiva normal
Neurological Exam
Neurological Exam: alert, oriented x3, CN II-XII intact, no motor deficits, no sensory deficits and speech normal
Jose Coma Scale
Eye Opening: Spontaneous
Verbal Response: Oriented
Motor Response: Obeys Commands
GCS Total Score: 15
Musculoskeletal Exam
Musculoskeletal Exam: neuro vasc intact and other (Pain to right knee, elbow and ankle. )
Skin Exam
Skin Exam: normal color, warm/dry, no rash and other (abrasions to right elbow, knee, lower orbit)
Psychiatric Exam
Psychiatric Exam: normal mood/affect
Course
Orders/Labs/Results
Orders:
Orders
10/28/23 11:54
CT Head W/o Iv Contrast Urgent
Comment: pt had subdural hematoma with sx 04/2022
Reason For Exam: fall, right forehead bruising and swelling
10/28/23 12:20
Ankle, Right 3 view CR [CR Ankle - Right Min 3 Views *] Urgent
Comment:
Reason For Exam: fall
Elbow, 3 View, Right [CR Elbow - Right Min 3 Views] Urgent
Comment:
Reason For Exam: fall
10/28/23 12:23
Knee, Right 4 or More Views [CR Knee- Right 4 Or More View*] Urgent
Comment:
Reason For Exam: fall
10/28/23 13:03
Acetaminophen [Tylenol/Feverall] 650 mg RECTAL NOW STA
Vital Signs
Initial and Last Documented VS:
Initial Vital Signs
Temp Pulse Resp BP Pulse Ox
98.2 F 87 18 127/64 99
10/28/23 11:50 10/28/23 11:50 10/28/23 11:50 10/28/23 11:50 10/28/23 11:50
Last Documented Vital Signs
Temp Pulse Resp BP Pulse Ox
98.2 F 87 16 127/64 99
10/28/23 11:50 10/28/23 11:50 10/28/23 14:00 10/28/23 11:50 10/28/23 11:50
Procedures
Laceration Closure
Right forehead #1:
Status of Wound: clean
Description of Wound Edges: sharp
Preparation: cleaned with saline
Anesthesia: 1% Lidocaine with epi
Revision/Debridement: routine- no revision
Wound exploration: explored to base- no FB
Type of Closure: single layer closure
Skin Closure Material: 6-0 nylon (4)
Right forehead #2:
Status of Wound: clean
Description of Wound Edges: sharp
Preparation: cleaned with saline
Anesthesia: 1% Lidocaine with epi
Revision/Debridement: routine- no revision
Wound exploration: explored to base- no FB
Type of Closure: single layer closure
Skin Closure Material: 6-0 nylon
Number of sutures: 5
*Radiology
Radiology exam reviewed: radiology read reviewed
*Pulse Oximetry
Patient hypoxic: no
*Critical Care Note
Total Time (30-74mins, 75-104mins- exclusive of procedures): Not Applicable
ED Attending Note
-
Portions of this chart may have been created with voice recognition software.� Occasional wrong word or��sound alike� substitutions may have occurred due to the inherent limitations of voice recognition software.
Discharge Plan
Departure
Patient Disposition: Home (Routine Discharge)
Date of Disposition: 10/28/23
Time of Disposition: 14:33
Patient with high blood pressure during this ER visit?: No
Condition: Good
Covid-19: Not Applicable
Discharge Problem:
Head injury, Forehead laceration, Fracture of elbow, Fracture of distal end of fibula
Instructions: Head injury in adults, Laceration Repair With Stitches (DC), Ankle Fracture ED, Wound Care ED, Elbow Fracture, Adult ED
Prescriptions:
No Action
furosemide 10 mg/mL solution
40 mg IV DAILYPRN PRN (Reason: edema)
Patient Comments:
09/03/2023, via picc line.
mirtazapine 30 mg Tablet,Disintegrating
30 mg PO HS
sucralfate 100 mg/mL Suspension
10 ml PO BID
sucralfate 100 mg/mL Suspension
10 ml PO DAILYPRN PRN (Reason: stomach ulcers)
ondansetron HCl 2 mg/mL solution
16 mg IV HS
Patient Comments:
09/03/2023, via picc line.
famotidine 40 mg Tablet
40 mg PO HS
Patient Comments:
09/03/2023, placed in TPN bag per pt.
pantoprazole 40 mg recon soln
40 mg IV BID
Patient Comments:
09/03/2023, via picc line.
diphenoxylate-atropine 2.5-0.025 mg Tablet
1 tab PO TIDPRN PRN (Reason: diarrhea)
cyanocobalamin (vitamin B-12) 1,000 mcg/mL Solution
1,000 mcg IM QMONTH
furosemide 20 mg Tablet
40 mg PO DAILY
sodium chloride 0.9 % Parenteral Solution
1 ea IV QPM
Patient Comments:
09/03/2023, via picc line.
fluocinonide 0.05 % Solution
1 applic TOPICAL .2-3 TIMES A WEEK PRN (Reason: scalp)
estradiol [Estrace] 0.01 % (0.1 mg/gram) Cream
1 appful VAGINAL .2 TIMES A WEEK
ketoconazole 2 % Cream
1 applic TOPICAL BID PRN (Reason: groin/vaginal area)
sildenafil (pulm.hypertension) 20 mg Tablet
60 mg PO BID
Prolia 60 mg/mL Syringe
60 mg SC [id number]
Patient Comments:
09/03/2023, next dose due in September per pt.
cholecalciferol (vitamin D3) 25 mcg/drop ( 1,000 unit/drop) Drops
50 mcg PO QPM
Thyquidity 20 mcg/mL Solution
560 mcg PO DAILY@0700
Tylenol Extra Strength 500 mg Powder In Packet
500 mg PO BIDPRN PRN (Reason: mild pain)
Blink Eye Drops
1 drp BOTH EYES BID
Blink Eye Drops
1 drp BOTH EYES DAILYPRN PRN (Reason: dry eyes)
Prime Sleep Supplement
1 tab PO HS
Patient Comments:
09/03/2023, contains melatonin.
Unknown Vitamins/Supplements
1 dose IV HS
Patient Comments:
09/03/2023, via picc line; in TPN bag per pt.; unsure of which vitamins and supplements.
Referrals:
Taz Bermudez MD [Active] - Call in 1-3 days for appt
Toyin Goldstein MD [Family Provider] - (Sutures can be removed in 5-7 days.)
Interventions
Interventions:
*Risk Screen - Suicide Last Done: 10/28/23 12:31
*General Assessment Last Done: 10/28/23 11:50
*Neglect/Abuse Screening Last Done: 10/28/23 11:50
ED- Fall Risk Assessment Last Done: 10/28/23 12:31
*ED COVID-19 Vaccine History Last Done: 10/28/23 12:31
ED- Neurological Assessment Last Done: 10/28/23 12:31
ED-Skin Assessment Last Done: 10/28/23 12:31
Discharge Date and Time
Print Language: LITHUANIAN
Musculoskeletal Injury Exam
Musculoskeletal Injury Exam
Right Elbow:
Pain with Movement?: Moderate
Tender to palpation?: Moderate
Soft tissue swelling?: None
External deformity and angulation?: None
Joint effusion?: None
Contusion?: Moderate
Hematoma-local bleeding into tissue?: None
Strain- Sprain- Tear (Connective tissue injury)?: None
Crepitus with movement?: No
Joint instability?: No
Malalignment/deformity?: No
Range of motion: Limited
Distal skin color and temperature: normal-warm & good color
Capillary Refill: normal
Normal distal neurovascular exam?: Yes
Peripheral Pulses: radial (right): 3+
Right Anterior Knee:
Pain with Movement?: Mild
Tender to palpation?: Moderate
Soft tissue swelling?: None
External deformity and angulation?: None
Joint effusion?: None
Contusion?: Moderate
Hematoma-local bleeding into tissue?: Mild
Strain- Sprain- Tear (Connective tissue injury)?: None
Crepitus with movement?: No
Joint instability?: No
Malalignment/deformity?: No
Range of motion: Full
Distal skin color and temperature: normal-warm & good color
Capillary Refill: normal
Normal distal neurovascular exam?: Yes
Peripheral Pulses: posterior tibial (right): 3+ and dorsalis pedis (right): 3+
Right Lateral Ankle:
Pain with Movement?: Moderate
Tender to palpation?: Mild
Soft tissue swelling?: None
External deformity and angulation?: None
Joint effusion?: None
Contusion?: None
Hematoma-local bleeding into tissue?: None
Strain- Sprain- Tear (Connective tissue injury)?: Moderate
Crepitus with movement?: No
Joint instability?: No
Malalignment/deformity?: No
Range of motion: Full
Distal skin color and temperature: normal-warm & good color
Capillary Refill: normal
Normal distal neurovascular exam?: Yes
[2023-10-28] MEDS: TYLENOL/FEVERALL 650 MG RECTAL (13:10)
== END 2023-10-28 15:04 | disposition home or self-care (01) ==
LOC: EMR 11:48
PROVIDERS: EMERGENCY PHYSICIAN Emergency Medicine; FAMILY PHYSICIAN Family Medicine
DX: S01.81XA Laceration without foreign body of other part of head, initial encounter (principal); S42.401A Unspecified fracture of lower end of right humerus, initial encounter for closed fracture; S82.831A Other fracture of upper and lower end of right fibula, initial encounter for closed fracture; W18.09XA Striking against other object with subsequent fall, initial encounter; Y92.008 Other place in unspecified non-institutional (private) residence as the place of occurrence of the external cause; S50.311A Abrasion of right elbow, initial encounter; S80.211A Abrasion, right knee, initial encounter; S00.211A Abrasion of right eyelid and periocular area, initial encounter; E03.9 Hypothyroidism, unspecified; I73.00 Raynaud's syndrome without gangrene; M34.9 Systemic sclerosis, unspecified; Z87.440 Personal history of urinary (tract) infections; K58.9 Irritable bowel syndrome, unspecified; Z98.0 Intestinal bypass and anastomosis status
CPT/HCPCS: 99284; 29515; 12013; 70450; 73080; 73564; 73610

== ENCOUNTER 2023-12-06 09:20 | Outpatient (RCR) | payer MEDICARE, OTHER, SELFPAY ==
[2023-11-23 10:10] VITALS: BP 118/57
[2023-11-23] MEDS: TYLENOL 650 MG PO (10:26)
[2023-11-23 10:40] VITALS: BP 118/57
[2023-11-23 11:04] VITALS: BP 131/59
[2023-11-23 12:40] VITALS: BP 139/63
[2023-12-06 09:44] VITALS: BP 127/66
[2023-12-06 09:52] VITALS: BP 127/66
[2023-12-06 10:18] VITALS: BP 117/58
[2023-12-06 11:52] VITALS: BP 125/66
== END 2023-12-18 23:59 | disposition home or self-care (01) ==
LOC: OID 09:20
PROVIDERS: ATTENDING PHYSICIAN Internal Medicine Hematology & Oncology; FAMILY PHYSICIAN Family Medicine
DX: D47.2 Monoclonal gammopathy (principal); D50.0 Iron deficiency anemia secondary to blood loss (chronic) (principal); R53.83 Other fatigue
CPT/HCPCS: 36415; 36430; 86850; 86870; 86880; 86900; 86901; 86920; 86922; P9016

== ENCOUNTER 2023-12-20 16:38 | Emergency (ER) | payer MEDICARE, OTHER, SELFPAY ==
[2023-12-20 16:42] VITALS: BP 116/54
--- NOTE | 2023-12-20 19:49 | ED.GENMED ---
History of Present Illness
General
Chief Complaint: Catheter/Tube Problem
Source: patient and spouse
Exam Limitations: none
Time Seen by Provider: 12/20/23 19:25
Nursing documentation reviewed up to this point in time: agreed with
History of Present Illness
History of Present Illness:
73-year-old female presents to the emergency department complaining of poorly draining G-tube and discomfort around G-tube. She had a blood transfusion prior to the ED visit. His G-tube was placed few days ago.
Past History
Past History
ED Past Medical History: Hypothyroidism, Other (Raynaud and scleroderma, Ascities, SBO, Spontanious Bacterial peritonitis, UTI, Fracture Femur, Chronic Nausea), Other (Uterine and rectal prolapse) and Other (Irritable bowel, takes Trulance)
ED Past Surgical History: Bowel resection, Brain (subdural hematoma), Gynecological (Hysterectomy), Orthopedic and Other (Hernia repair, thyroidectomy, vaginal prolapse, rectal prolapse)
Social History
Tobacco: Non-smoker
Alcohol: None
Drug: None
Personal:
Living: with family
Employment: Retired
Family History
Family History: Other (Noncontributory)
Review of Systems
Review of Systems
Allergies reviewed?: Yes
All Other Systems: Not applicable
Constitutional: Reports no symptoms
EENT: Reports no symptoms
Respiratory: Reports no symptoms
Cardiac: Reports no symptoms
ABD/GI: Reports abdominal pain
: Reports no symptoms
Musculoskeletal: Reports no symptoms
Skin: Reports no symptoms
Neurological: Reports no symptoms
Endocrine: Reports no symptoms
Hematologic/Lymphatic: Reports no symptoms
Psychiatric: Reports no symptoms
Phy Exam
Physical Exam
Physical Exam:
Physical Exam
General: afebrile
Neck: supple. no meningeal signs. normal posterior pharynx
Heart: s1/s2 regular rate and rhythm, no murmur. equal radial
pulses.
HEENT: Pupils equal round reactive to light, EOMI
Lungs: no acute respiratory distress. clear bilaterally
Abdomen: normal bowel sounds. not tender. no CVAT, gastric tube draining bilious contents
Neuro: alert and oriented. no focal neurological deficits cranial nerves II through XII intact
Skin: no rash
Psychiatric: well kept. interactive and cooperative
Extremities: no edema. no calf tenderness. negative homans. good distal pulses
Course
Orders/Labs/Results
Orders:
Orders
12/20/23 19:48
Obstruct Series W/PA Chest [CR Obstruct Series W/pa Chest] Urgent
Comment:
Reason For Exam: abd pain, poorly draining g tube, hx gastroparesis
Vital Signs
Initial and Last Documented VS:
Initial Vital Signs
Temp Pulse Resp BP Pulse Ox
98.7 F 70 16 116/54 97
12/20/23 16:42 12/20/23 16:42 12/20/23 16:42 12/20/23 16:42 12/20/23 16:42
Last Documented Vital Signs
Temp Pulse Resp BP Pulse Ox
98.7 F 70 16 116/54 97
12/20/23 16:42 12/20/23 16:42 12/20/23 16:42 12/20/23 16:42 12/20/23 16:42
MDM/Problems Addressed
Differential Diagnosis Includes:
Bowel obstruction
MDM/Problems Addressed:
73-year-old female with gastroparesis, poorly gain G-tube, now draining well. Patient will follow-up with gastroenterology at [facility].
Chronic conditions affecting care: Other (Gastroparesis)
Acute Exacerbation and/or Progression of Chronic Illness: Other (Gastroparesis)
*Pulse Oximetry
Patient hypoxic: no
*Critical Care Note
Total Time (30-74mins, 75-104mins- exclusive of procedures): Not Applicable
Patient Management
Discussion with other providers: Tactical Debriefer (Attempted to contact gastroenterology at [facility], with no success)
Escalation/DeEscalation of care consider admission/obs:
Admit not indicated
ED Attending Note
-
Portions of this chart may have been created with voice recognition software.� Occasional wrong word or��sound alike� substitutions may have occurred due to the inherent limitations of voice recognition software.
Discharge Plan
Departure
Patient Disposition: Home (Routine Discharge)
Date of Disposition: 12/20/23
Time of Disposition: 20:28
Patient with high blood pressure during this ER visit?: No
Condition: Good
Discharge Problem:
Complaint associated with gastric tube, Gastric dysmotility
Instructions: How to Care for Your Gastrostomy Tube
Prescriptions:
No Action
furosemide 10 mg/mL solution
40 mg IV DAILYPRN PRN (Reason: edema)
Patient Comments:
09/03/2023, via picc line.
mirtazapine 30 mg Tablet,Disintegrating
30 mg PO HS
sucralfate 100 mg/mL Suspension
10 ml PO BID
sucralfate 100 mg/mL Suspension
10 ml PO DAILYPRN PRN (Reason: stomach ulcers)
ondansetron HCl 2 mg/mL solution
16 mg IV HS
Patient Comments:
09/03/2023, via picc line.
pantoprazole 40 mg recon soln
40 mg IV BID
Patient Comments:
09/03/2023, via picc line.
diphenoxylate-atropine 2.5-0.025 mg Tablet
1 tab PO TIDPRN PRN (Reason: diarrhea)
cyanocobalamin (vitamin B-12) 1,000 mcg/mL Solution
1,000 mcg IM QMONTH
furosemide 20 mg Tablet
40 mg PO DAILY
sodium chloride 0.9 % Parenteral Solution
1 ea IV QPM
Patient Comments:
RECEIVIES TPN VIA PICC LINE FOR 12 HOURS EACH NIGHT
fluocinonide 0.05 % Solution
1 applic TOPICAL .2-3 TIMES A WEEK PRN (Reason: scalp)
estradiol [Estrace] 0.01 % (0.1 mg/gram) Cream
1 appful VAGINAL .2 TIMES A WEEK
ketoconazole 2 % Cream
1 applic TOPICAL BID PRN (Reason: groin/vaginal area)
sildenafil (pulm.hypertension) 20 mg Tablet
60 mg PO BID
Prolia 60 mg/mL Syringe
60 mg SC [id number]
Patient Comments:
09/03/2023, next dose due in September per pt.
cholecalciferol (vitamin D3) 25 mcg/drop ( 1,000 unit/drop) Drops
50 mcg PO QPM
Thyquidity 20 mcg/mL Solution
560 mcg PO DAILY@0700
Tylenol Extra Strength 500 mg Powder In Packet
500 mg PO BIDPRN PRN (Reason: mild pain)
Blink Eye Drops
1 drp BOTH EYES BID
Blink Eye Drops
1 drp BOTH EYES DAILYPRN PRN (Reason: dry eyes)
Prime Sleep Supplement
1 tab PO HS
Patient Comments:
09/03/2023, contains melatonin.
Unknown Vitamins/Supplements
1 dose IV HS
Patient Comments:
09/03/2023, via picc line; in TPN bag per pt.; unsure of which vitamins and supplements.
Referrals:
Toyin Goldstein MD [Family Provider] -
Discharge Date and Time
Print Language: CZECH
== END 2023-12-20 20:35 | disposition home or self-care (01) ==
LOC: EMR 16:38
PROVIDERS: EMERGENCY PHYSICIAN Emergency Medicine; FAMILY PHYSICIAN Family Medicine
DX: K59.9 Functional intestinal disorder, unspecified (principal); K31.84 Gastroparesis; Z43.1 Encounter for attention to gastrostomy
CPT/HCPCS: 99282

== ENCOUNTER → 2024-01-16 13:22 | Outpatient (REF) | payer MEDICARE, OTHER, SELFPAY | LOC: REG 13:22 | PROVIDERS: ATTENDING PHYSICIAN Internal Medicine Hematology & Oncology; FAMILY PHYSICIAN Family Medicine; OTHER PHYSICIAN Internal Medicine Hematology & Oncology | DX: D47.2 Monoclonal gammopathy (principal); D50.0 Iron deficiency anemia secondary to blood loss (chronic); R53.83 Other fatigue | CPT/HCPCS: 36415; 86850; 86870; 86900; 86901; 86920; 86922 ==

== ENCOUNTER 2024-01-17 10:12 | Outpatient (RCR) | payer MEDICARE, OTHER, SELFPAY ==
[2023-12-20 10:10] VITALS: BP 119/57
[2023-12-20] MEDS: TYLENOL 650 MG PO (10:29)
[2023-12-20 10:37] VITALS: BP 119/57
[2023-12-20 10:59] VITALS: BP 103/50
[2023-12-20 12:36] VITALS: BP 115/54
[2024-01-04 12:29] LABS: % Basophils 0.6 % (0-2); % Immature Granulocytes 0.2 % (0-0.5); % Lymphocytes 15.1 % (20.5-51.1); % Neutrophils 70.1 % (42.2-75.2); Absolute Eosinophils 0.1 10^3/uL (0-0.7); Absolute Lymphocytes 0.8 10^3/uL (1.2-3.4); Absolute Monocytes 0.6 10^3/uL (0.1-0.6); Absolute Neutrophils 3.6 10^3/uL (1.4-6.5); Hemoglobin 9.3 g/dL (12.0-16.0); Mean Corpuscular Hgb 26.4 pg (27.0-31.0); Mean Corpuscular Volume 85.2 fL (81.0-99.0); Platelet Count 123 10^3/uL (130-400); Red Blood Cell Count 3.52 10^6/uL (4.20-5.40); Red Cell Dist. Width 18.5 % (11.5-14.5); White Blood Cell Count 5.1 10^3/uL (4.8-10.8)
[2024-01-04 13:41] LABS: Iron 36 ug/dl (37-170)
[2024-01-04 13:50] LABS: Percent Saturation 10 % (20-50); Total Iron Binding Capacity 359 ug/dl (265-497)
[2024-01-04 14:19] LABS: Ferritin 26.9 ng/ml (11.1-264.0)
== END 2024-01-18 23:59 | disposition home or self-care (01) ==
LOC: OID 10:12
PROVIDERS: ATTENDING PHYSICIAN Internal Medicine Hematology & Oncology; FAMILY PHYSICIAN Family Medicine
DX: D50.0 Iron deficiency anemia secondary to blood loss (chronic) (principal); D47.2 Monoclonal gammopathy; R53.83 Other fatigue
CPT/HCPCS: 36415; 36430; 82728; 83540; 83550; 85025; 86850; 86860; 86870; 86880; 86900; 86901; 86920; 86922; P9016

== ENCOUNTER 2024-01-19 11:32 | Emergency (ER) | payer MEDICARE, OTHER, SELFPAY ==
[2024-01-19 11:34] VITALS: BP 111/63
[2024-01-19 12:00] VITALS: BP 129/48
[2024-01-19 12:14] VITALS: BMI 21.5
--- NOTE | 2024-01-19 12:29 | ED.GENMED ---
History of Present Illness
General
Chief Complaint: Abnormal Lab Value
Time Seen by Provider: 01/19/24 12:28
History of Present Illness
History of Present Illness:
73-year-old female presents to the emergency department for ration of low hemoglobin. She is undergoing outpatient workup through gastroenterology at [facility] for a suspected GI bleed. She has required numerous blood transfusions over the
course of the past month, states she underwent an upper endoscopy at [facility] earlier in December that was reportedly negative for source of acute bleeding. She is scheduled for an outpatient colonoscopy but due to severe gastroparesis her prep has
been challenging. She is routine transfusions in the outpatient infusion center, reportedly had a hemoglobin earlier this week of 6.8 however her type and screen was positive for antibodies. Her infusion center advised her that they would be able
to receive appropriate blood to transfuse her this upcoming Monday. She is concerned that this is too long to wait. Denies chest pain or shortness of breath at this time. Does feel fatigued. Receives home TPN as well as IV fluids administered
by her son
Past History
Past History
ED Past Medical History: Hypothyroidism, Other (Raynaud and scleroderma, Ascities, SBO, Spontanious Bacterial peritonitis, UTI, Fracture Femur, Chronic Nausea), Other (Uterine and rectal prolapse) and Other (Irritable bowel, takes Trulance)
ED Past Surgical History: Bowel resection, Brain (subdural hematoma), Gynecological (Hysterectomy), Orthopedic and Other (Hernia repair, thyroidectomy, vaginal prolapse, rectal prolapse)
Social History
Tobacco: Non-smoker
Alcohol: None
Drug: None
Personal:
Living: with family
Employment: Retired
Family History
Family History: Other (Noncontributory)
Review of Systems
Review of Systems
Allergies reviewed?: Yes
All Other Systems: ROS reviewed and negative except as documented in HPI and ROS
Phy Exam
Physical Exam
Physical Exam:
GEN: Thin and frail, cachectic appearing, no apparent distress, mildly pale
HEENT: Oral mucosa moist, no scleral icterus
Cardiac: Regular rate
Lung: No respiratory distress, no tachypnea
MSK: No gross deformity or injuries
Skin: Good color, no pallor or jaundice, no rashes
Neuro: AO x3, moves all extremities freely
Psych: Calm, cooperative
Course
Orders/Labs/Results
Orders:
Orders
01/19/24 12:33
CR Chest Single View Urgent
Comment:
Reason For Exam: PICC
01/19/24 12:34
Type+Screen Urgent
Complete Blood Count/With Diff Urgent
Comprehensive Metabolic Panel Urgent
Abnormal Lab Results
01/19/24
12:34
WBC 4.0 L 10^3/uL
(4.8-10.8)
RBC 2.44 L 10^6/uL
(4.20-5.40)
Hgb 7.2 L g/dL
(12.0-16.0)
Hct 23.1 L %
(37.0-47.0)
MCHC 31.2 L g/dL
(33.0-37.0)
RDW 28.0 H %
(11.5-14.5)
Plt Count 103 L 10^3/uL
(130-400)
Absolute Lymphs (auto) 0.6 L 10^3/uL
(1.2-3.4)
Lymphocytes % 16.1 L %
(20.5-51.1)
Monocytes % 14.3 H %
(1.7-9.3)
Chloride 109 H mmol/L
(98-107)
BUN 49 H mg/dl
(7-17)
Creatinine 1.1 H mg/dL
(0.6-1.0)
Glucose 129 H mg/dl
(70-99)
AST 48 H U/L
(14-36)
Alkaline Phosphatase 291 H U/L
(38-126)
Total Protein 5.8 L g/dl
(6.3-8.2)
Albumin 2.7 L g/dl
(3.5-5.0)
Antibody Screen Positive A
(Negative)
01/19/24 12:34
01/19/24 12:34
Vital Signs
Initial and Last Documented VS:
Initial Vital Signs
Temp Pulse Resp BP Pulse Ox
98.3 F 79 16 111/63 98
01/19/24 11:34 01/19/24 11:34 01/19/24 11:34 01/19/24 11:34 01/19/24 11:34
Last Documented Vital Signs
Temp Pulse Resp BP Pulse Ox
98.2 F 75 20 115/61 98
01/19/24 14:22 01/19/24 14:22 01/19/24 14:22 01/19/24 14:22 01/19/24 14:22
MDM/Problems Addressed
MDM/Problems Addressed:
Patient's hemoglobin is stable, sure that there is some degree of hemoconcentration given her creased hemoglobin, she will receive IV fluids at home today. Given that the hemoglobin has not trended down in the course of flow days since her last
outpatient check it is reasonable for her to wait till next week for her outpatient infusion as she is requesting not to be admitted to the hospital at this time. She is advised to return with any worsening symptoms that may indicate worsening
anemia. Ambulated out of the emergency department
*Critical Care Note
Total Time (30-74mins, 75-104mins- exclusive of procedures): Not Applicable
Update Note
Update Note:
PICC is in satisfactory position and may be used as needed
ED Attending Note
-
Portions of this chart may have been created with voice recognition software.� Occasional wrong word or��sound alike� substitutions may have occurred due to the inherent limitations of voice recognition software.
Discharge Plan
Departure
Patient Disposition: Home (Routine Discharge)
Date of Disposition: 01/19/24
Time of Disposition: 14:01
Patient with high blood pressure during this ER visit?: No
Discharge Problem:
Anemia
Instructions: Anemia caused by low iron
Prescriptions:
No Action
furosemide 10 mg/mL solution
40 mg IV DAILYPRN PRN (Reason: edema)
Patient Comments:
09/03/2023, via picc line.
mirtazapine 30 mg Tablet,Disintegrating
30 mg PO HS
sucralfate 100 mg/mL Suspension
10 ml PO BID
sucralfate 100 mg/mL Suspension
10 ml PO DAILYPRN PRN (Reason: stomach ulcers)
ondansetron HCl 2 mg/mL solution
16 mg IV HS
Patient Comments:
09/03/2023, via picc line.
pantoprazole 40 mg recon soln
40 mg IV BID
Patient Comments:
09/03/2023, via picc line.
diphenoxylate-atropine 2.5-0.025 mg Tablet
1 tab PO TIDPRN PRN (Reason: diarrhea)
cyanocobalamin (vitamin B-12) 1,000 mcg/mL Solution
1,000 mcg IM QMONTH
furosemide 20 mg Tablet
40 mg PO DAILY
sodium chloride 0.9 % Parenteral Solution
1 ea IV QPM
Patient Comments:
RECEIVIES TPN VIA PICC LINE FOR 12 HOURS EACH NIGHT
fluocinonide 0.05 % Solution
1 applic TOPICAL .2-3 TIMES A WEEK PRN (Reason: scalp)
estradiol [Estrace] 0.01 % (0.1 mg/gram) Cream
1 appful VAGINAL .2 TIMES A WEEK
ketoconazole 2 % Cream
1 applic TOPICAL BID PRN (Reason: groin/vaginal area)
sildenafil (pulm.hypertension) 20 mg Tablet
60 mg PO BID
Prolia 60 mg/mL Syringe
60 mg SC [id number]
Patient Comments:
09/03/2023, next dose due in September per pt.
cholecalciferol (vitamin D3) 25 mcg/drop ( 1,000 unit/drop) Drops
50 mcg PO QPM
Thyquidity 20 mcg/mL Solution
560 mcg PO DAILY@0700
Tylenol Extra Strength 500 mg Powder In Packet
500 mg PO BIDPRN PRN (Reason: mild pain)
Blink Eye Drops
1 drp BOTH EYES BID
Blink Eye Drops
1 drp BOTH EYES DAILYPRN PRN (Reason: dry eyes)
Prime Sleep Supplement
1 tab PO HS
Patient Comments:
09/03/2023, contains melatonin.
Unknown Vitamins/Supplements
1 dose IV HS
Patient Comments:
09/03/2023, via picc line; in TPN bag per pt.; unsure of which vitamins and supplements.
Referrals:
Toyin Goldstein MD [Family Provider] -
Activity Restrictions/Additional Instructions:
We discussed admission to the hospital for blood transfusion however you declined. This is reasonable given that your hemoglobin has not worsened since Monday. If you develop chest pain, trouble breathing, or generalized weakness, please return ot
the ER for re-evaluation. Obtain your scheduled blood transfusion on Monday as planned
Interventions
Interventions:
*Risk Screen - Suicide Last Done: 01/19/24 11:37
*General Assessment Last Done: 01/19/24 12:15
*Neglect/Abuse Screening Last Done: 01/19/24 11:37
ED- Fall Risk Assessment Last Done: 01/19/24 12:17
*ED COVID-19 Vaccine History Last Done: 01/19/24 11:37
*Nursing Disposition Last Done: 01/19/24 14:22
Discharge Date and Time
Discharge Date/Time: 01/19/24 14:23
Print Language: TRISTANIAN
[2024-01-19 13:00] VITALS: BP 113/56
[2024-01-19 13:05] LABS: ALT (SGPT) 30 U/L (0-35); AST (SGOT) 48 U/L (14-36); Albumin 2.7 g/dl (3.5-5.0); Alkaline Phosphatase 291 U/L (38-126); Blood Urea Nitrogen 49 mg/dl (7-17); Calcium 8.7 mg/dl (8.4-10.2); Carbon Dioxide 25 mmol/L (22-30); Chloride 109 mmol/L (98-107); Estimated Creatinine Clearance 31 ml/min; Glucose 129 mg/dl (70-99); Potassium 4.1 mmol/L (3.5-5.1); Sodium 144 mmol/L (135-145); Total Bilirubin 1.1 mg/dl (0.2-1.3); Total Protein 5.8 g/dl (6.3-8.2); eGFR 53.06
[2024-01-19 13:12] LABS: % Basophils 0.5 % (0-2); % Immature Granulocytes 0.5 % (0-0.5); % Lymphocytes 16.1 % (20.5-51.1); % Monocytes 14.3 % (1.7-9.3); % Neutrophils 67.6 % (42.2-75.2); Absolute Lymphocytes 0.6 10^3/uL (1.2-3.4); Absolute Monocytes 0.6 10^3/uL (0.1-0.6); Absolute Neutrophils 2.7 10^3/uL (1.4-6.5); Hematocrit 23.1 % (37.0-47.0); Hemoglobin 7.2 g/dL (12.0-16.0); Mean Corp Hgb Conc. 31.2 g/dL (33.0-37.0); Mean Corpuscular Hgb 29.5 pg (27.0-31.0); Mean Corpuscular Volume 94.7 fL (81.0-99.0); Nucleated Red Blood Cells % 0 %; Platelet Count 103 10^3/uL (130-400); Red Blood Cell Count 2.44 10^6/uL (4.20-5.40)
[2024-01-19 13:37] LABS: Anisocytosis 1+; Hypochromasia 1+
[2024-01-19 14:22] VITALS: BP 115/61
[2024-01-19 14:47] LABS: Normal RBC Morphology No
== END 2024-01-19 14:23 | disposition home or self-care (01) ==
LOC: EMR 11:32
PROVIDERS: Physician Assistant; EMERGENCY PHYSICIAN Emergency Medicine; FAMILY PHYSICIAN Family Medicine
DX: D64.9 Anemia, unspecified (principal); E03.9 Hypothyroidism, unspecified; Z90.710 Acquired absence of both cervix and uterus; Z95.9 Presence of cardiac and vascular implant and graft, unspecified
CPT/HCPCS: 99284; 71045; 80053; 85025; 86850; 86870; 86900; 86901

== ENCOUNTER 2024-01-31 09:57 | Outpatient (RCR) | payer MEDICARE, OTHER, SELFPAY ==
[2024-01-30 13:33] LABS: % Basophils 0.5 % (0-2); % Eosinophils 0.5 % (0-6); % Immature Granulocytes 0.3 % (0-0.5); % Lymphocytes 15.7 % (20.5-51.1); % Monocytes 8.9 % (1.7-9.3); % Neutrophils 74.1 % (42.2-75.2); Absolute Monocytes 0.6 10^3/uL (0.1-0.6); Absolute Neutrophils 4.6 10^3/uL (1.4-6.5); Hemoglobin 7.9 g/dL (12.0-16.0); Mean Corp Hgb Conc. 30.4 g/dL (33.0-37.0); Mean Corpuscular Hgb 30.5 pg (27.0-31.0); Mean Corpuscular Volume 100.4 fL (81.0-99.0); Nucleated Red Blood Cells % 0 %; Platelet Count 163 10^3/uL (130-400); Red Blood Cell Count 2.59 10^6/uL (4.20-5.40); White Blood Cell Count 6.3 10^3/uL (4.8-10.8)
[2024-01-30 13:39] LABS: Iron 39 ug/dl (37-170)
[2024-01-30 13:49] LABS: Percent Saturation 15 % (20-50); Total Iron Binding Capacity 247 ug/dl (265-497)
[2024-01-30 15:00] LABS: Ferritin 59.1 ng/ml (11.1-264.0)
[2024-01-31 10:41] VITALS: BP 110/53
[2024-01-31 11:02] VITALS: BP 102/45
[2024-01-31 12:58] VITALS: BP 115/54
== END 2024-02-17 23:59 | disposition home or self-care (01) ==
LOC: OID 09:57
PROVIDERS: ATTENDING PHYSICIAN Internal Medicine Hematology & Oncology; FAMILY PHYSICIAN Family Medicine
DX: D50.0 Iron deficiency anemia secondary to blood loss (chronic) (principal); D47.2 Monoclonal gammopathy; R53.83 Other fatigue
CPT/HCPCS: 36415; 36430; 82728; 83540; 83550; 85025; 86850; 86870; 86900; 86901; 86920; 86922; P9016

== ENCOUNTER 2024-02-05 10:23 | Emergency (ER) | payer MEDICARE, OTHER, SELFPAY ==
[2024-02-05] VITALS (7 sets, daily range): BP systolic 84–111; BP diastolic 47–64; BMI 21.7
--- NOTE | 2024-02-05 11:10 | ED.GENMED ---
History of Present Illness
General
Chief Complaint: Fever
Time Seen by Provider: 02/05/24 11:05
History of Present Illness
History of Present Illness:
Patient is a 73-year-old woman with history of GI bleed, gastroparesis status post PEG tube placement that now drains to ostomy, anemia presenting to the emergency department with bodyaches and nausea vomiting. Patient states that she woke up this
morning and both her legs were aching. She then had 2-3 episodes of nonbloody nonbilious emesis. No diarrhea. No fevers at home. No cough congestion runny nose. She does state that many people she knows has been sick lately. No changes in her
output from her ostomy. No urinary symptoms. She does state that she feels much better than when she first came in.
Past History
Past History
ED Past Medical History: Hypothyroidism, Other (Raynaud and scleroderma, Ascities, SBO, Spontanious Bacterial peritonitis, UTI, Fracture Femur, Chronic Nausea), Other (Uterine and rectal prolapse) and Other (Irritable bowel, takes Trulance)
ED Past Surgical History: Bowel resection, Brain (subdural hematoma), Gynecological (Hysterectomy), Orthopedic and Other (Hernia repair, thyroidectomy, vaginal prolapse, rectal prolapse)
Social History
Tobacco: Non-smoker
Alcohol: None
Drug: None
Personal:
Living: with family
Employment: Retired
Family History
Family History: Other (Noncontributory)
Phy Exam
Physical Exam
Physical Exam:
GENERAL: in no acute distress
HEENT: normocephalic, extraocular movements intact, dry oral mucosa
NECK: normal inspection
RESPIRATORY: no respiratory distress, clear to auscultation bilaterally
CARDIOVASCULAR: regular rate and rhythm
ABDOMEN/: soft, non-distended, non-tender to palpation, no rebound or guarding, ostomy bag in place
EXTREMITIES: non-tender, no edema/swelling
NEUROLOGIC: awake and alert, moves all extremities
SKIN: warm
Course
Orders/Labs/Results
Orders:
Orders
02/05/24 11:10
Basic Metabolic Panel Urgent
COVID-19 Antigen Urgent
Source: Nasal Swab
Complete Blood Count/With Diff Urgent
Influenza A+B Rapid Molecular Urgent
PATTIE Source: Nasal Swab
Specimen Description:
0.9% Sodium Chloride 1000 ml [Nss] 1,000 ml IV BOLUS
02/05/24 11:13
Acetaminophen [Tylenol] 1,000 mg PO NOW STA
Vital Signs
Initial and Last Documented VS:
Initial Vital Signs
Temp Pulse Resp BP Pulse Ox
100.8 F H 108 20 111/55 94
02/05/24 10:40 02/05/24 10:40 02/05/24 10:40 02/05/24 10:40 02/05/24 10:40
Last Documented Vital Signs
Temp Pulse Resp BP Pulse Ox
100.8 F H 108 20 111/55 94
02/05/24 10:40 02/05/24 10:40 02/05/24 10:40 02/05/24 10:40 02/05/24 10:40
MDM/Problems Addressed
Differential Diagnosis Includes:
Patient is a 73-year-old woman presenting to the emergency department body aches nausea vomiting. Patient found to be febrile here to 100.8. Exam does show dry oral mucosa but is otherwise reassuring. Will check blood work and check COVID and flu
swab. Will give IV fluids. Will obtain CT scan and give antiemetics.
*Critical Care Note
Total Time (30-74mins, 75-104mins- exclusive of procedures): Not Applicable
Update Note
Update Note:
patient signed out to oncoming attending
ED Attending Note
-
Portions of this chart may have been created with voice recognition software.� Occasional wrong word or��sound alike� substitutions may have occurred due to the inherent limitations of voice recognition software.
Discharge Plan
Departure
Prescriptions:
No Action
furosemide 10 mg/mL solution
40 mg IV DAILYPRN PRN (Reason: edema)
Patient Comments:
09/03/2023, via picc line.
mirtazapine 30 mg Tablet,Disintegrating
30 mg PO HS
sucralfate 100 mg/mL Suspension
10 ml PO BID
sucralfate 100 mg/mL Suspension
10 ml PO DAILYPRN PRN (Reason: stomach ulcers)
ondansetron HCl 2 mg/mL solution
16 mg IV HS
Patient Comments:
09/03/2023, via picc line.
pantoprazole 40 mg recon soln
40 mg IV BID
Patient Comments:
09/03/2023, via picc line.
diphenoxylate-atropine 2.5-0.025 mg Tablet
1 tab PO TIDPRN PRN (Reason: diarrhea)
cyanocobalamin (vitamin B-12) 1,000 mcg/mL Solution
1,000 mcg IM QMONTH
furosemide 20 mg Tablet
40 mg PO DAILY PRN (Reason: Fluid Retention/Swelling)
sodium chloride 0.9 % Parenteral Solution
1 ea IV QPM
Patient Comments:
RECEIVIES TPN VIA PICC LINE FOR 12 HOURS EACH NIGHT
fluocinonide 0.05 % Solution
1 applic TOPICAL .2-3 TIMES A WEEK PRN (Reason: scalp)
estradiol [Estrace] 0.01 % (0.1 mg/gram) Cream
1 appful VAGINAL .2 TIMES A WEEK
ketoconazole 2 % Cream
1 applic TOPICAL BID PRN (Reason: groin/vaginal area)
sildenafil (pulm.hypertension) 20 mg Tablet
60 mg PO BID
Prolia 60 mg/mL Syringe
60 mg SC [id number]
Patient Comments:
09/03/2023, next dose due in September per pt.
cholecalciferol (vitamin D3) 25 mcg/drop ( 1,000 unit/drop) Drops
50 mcg PO QPM
Thyquidity 20 mcg/mL Solution
560 mcg PO DAILY@0700
Tylenol Extra Strength 500 mg Powder In Packet
500 mg PO BIDPRN PRN (Reason: mild pain)
Blink Eye Drops
1 drp BOTH EYES BID
Blink Eye Drops
1 drp BOTH EYES DAILYPRN PRN (Reason: dry eyes)
Prime Sleep Supplement
1 tab PO HS
Patient Comments:
09/03/2023, contains melatonin.
Unknown Vitamins/Supplements
1 dose IV HS
Patient Comments:
09/03/2023, via picc line; in TPN bag per pt.; unsure of which vitamins and supplements.
Referrals:
Toyin Goldstein MD [Family Provider] -
Interventions
Interventions:
*Risk Screen - Suicide Last Done: 02/05/24 10:24
*General Assessment Last Done: 02/05/24 10:26
*Neglect/Abuse Screening Last Done: 02/05/24 10:26
Discharge Date and Time
Print Language: DUTCH
[2024-02-05 12:07] LABS: % Basophils 0.3 % (0-2); % Eosinophils 0.3 % (0-6); % Immature Granulocytes 0.3 % (0-0.5); % Lymphocytes 3.7 % (20.5-51.1); % Monocytes 0.9 % (1.7-9.3); % Neutrophils 94.5 % (42.2-75.2); Absolute Lymphocytes 0.1 10^3/uL (1.2-3.4); Absolute Neutrophils 3.1 10^3/uL (1.4-6.5); Hemoglobin 8.5 g/dL (12.0-16.0); Mean Corp Hgb Conc. 30.4 g/dL (33.0-37.0); Mean Corpuscular Hgb 30.8 pg (27.0-31.0); Mean Corpuscular Volume 101.4 fL (81.0-99.0); Mean Platelet Volume 11.7 fL (7.4-10.4); Nucleated Red Blood Cells % 0 %; Platelet Count 97 10^3/uL (130-400); Red Blood Cell Count 2.76 10^6/uL (4.20-5.40); Red Cell Dist. Width 21.9 % (11.5-14.5); White Blood Cell Count 3.2 10^3/uL (4.8-10.8)
[2024-02-05 12:20] LABS: Blood Urea Nitrogen 52 mg/dl (7-17); Calcium 8.3 mg/dl (8.4-10.2); Carbon Dioxide 26 mmol/L (22-30); Chloride 105 mmol/L (98-107); Glucose 81 mg/dl (70-99); Potassium 3.8 mmol/L (3.5-5.1); Sodium 141 mmol/L (135-145); eGFR 59.49
[2024-02-05 12:25] LABS: COVID-19 Antigen Negative (Negative)
[2024-02-05] MEDS: TYLENOL 1000 MG PO (12:37)
--- NOTE | 2024-02-05 12:45 | EDRN ---
IV meds on hold awaiting PICC line CXR at this time.
--- NOTE | 2024-02-05 13:00 | EDRN ---
Dr. Pemberton cleared the PICC line for use post CXR and IVF and zofran administerd.
[2024-02-05] MEDS: NSS 1000 IV (13:07)
[2024-02-05] MEDS: ZOFRAN 4 MG IV (13:08)
--- NOTE | 2024-02-05 13:19 | ED.GENMED ---
History of Present Illness
General
Chief Complaint: Fever
Time Seen by Provider: 02/05/24 11:05
Past History
Past History
ED Past Medical History: Hypothyroidism, Other (Raynaud and scleroderma, Ascities, SBO, Spontanious Bacterial peritonitis, UTI, Fracture Femur, Chronic Nausea), Other (Uterine and rectal prolapse) and Other (Irritable bowel, takes Trulance)
ED Past Surgical History: Bowel resection, Brain (subdural hematoma), Gynecological (Hysterectomy), Orthopedic and Other (Hernia repair, thyroidectomy, vaginal prolapse, rectal prolapse)
Social History
Tobacco: Non-smoker
Alcohol: None
Drug: None
Personal:
Living: with family
Employment: Retired
Family History
Family History: Other (Noncontributory)
Course
Orders/Labs/Results
Orders:
Orders
02/05/24 11:10
0.9% Sodium Chloride 1000 ml [Nss] 1,000 ml IV BOLUS
02/05/24 11:13
Acetaminophen [Tylenol] 1,000 mg PO NOW STA
02/05/24 11:35
Ondansetron Injectable [Zofran] 4 mg IV NOW STA
02/05/24 11:50
Basic Metabolic Panel Urgent
COVID-19 Antigen Urgent
Source: Nasal Swab
Complete Blood Count/With Diff Urgent
Influenza A+B Rapid Molecular Urgent
PATTIE Source: Nasal Swab
Specimen Description:
02/05/24 12:17
CR Chest - 2 Views Urgent
Comment:
Reason For Exam: confirm picc
02/05/24 13:17
CT Abd/pel W Iv And Oral Contr Urgent
Comment:
Reason For Exam: hx abd surgery/ostom, now n/v
Iohexol [Omnipaque] See Protocol PO NOW STA
Abnormal Lab Results
02/05/24
11:50
WBC 3.2 L 10^3/uL
(4.8-10.8)
RBC 2.76 L 10^6/uL
(4.20-5.40)
Hgb 8.5 L g/dL
(12.0-16.0)
Hct 28.0 L %
(37.0-47.0)
MCV 101.4 H fL
(81.0-99.0)
MCHC 30.4 L g/dL
(33.0-37.0)
RDW 21.9 H %
(11.5-14.5)
Plt Count 97 L D 10^3/uL
(130-400)
MPV 11.7 H fL
(7.4-10.4)
Absolute Lymphs (auto) 0.1 L 10^3/uL
(1.2-3.4)
Absolute Monos (auto) 0.0 L 10^3/uL
(0.1-0.6)
Neutrophils % 94.5 H %
(42.2-75.2)
Lymphocytes % 3.7 L %
(20.5-51.1)
Monocytes % 0.9 L %
(1.7-9.3)
BUN 52 H mg/dl
(7-17)
Calcium 8.3 L mg/dl
(8.4-10.2)
02/05/24 11:50
02/05/24 11:50
Vital Signs
Initial and Last Documented VS:
Initial Vital Signs
Temp Pulse Resp BP Pulse Ox
100.8 F H 108 20 111/55 94
02/05/24 10:40 02/05/24 10:40 02/05/24 10:40 02/05/24 10:40 02/05/24 10:40
Last Documented Vital Signs
Temp Pulse Resp BP Pulse Ox
99.7 F 95 18 84/47 91
02/05/24 13:57 02/05/24 14:00 02/05/24 14:00 02/05/24 15:25 02/05/24 15:25
Update Note
Update Note:
119pm pt states she feels 'great' and wants to go home. Abd exam, output noted in ostomy, soft, nt. Triage note notes extrem pain, she confirms that she had pain in 'tops of my legs' earlier today, now fully resolved.
[address] report Proximal small bowel obstruction with transition point in the left midabdomen.
cxr report New small left pleural effusion with associated atelectasis and/or pneumonia.
Cannot rule out component of underlying chronic interstitial lung disease.
404 pm long d/w pt and her son, who is bedside. He shows me notes from [facility], describes review of CT from within last year that was reported as sbo but ramesh felt c/w baseline. I then d/w our rads (Delvin Aparicio) who reviewed
priors and confirms that findings today are same as prior (When Ramesh confirmed baseline). Pt continues to feel 'fine', eager to go home. Drinking here, no abd pain, no n/v.
Origin of fever unclear. CXR vague, will need to be followed, however no cough/st etc to suggest clinical correlation to ?pna.
I recommend blood cxs before d/c, she decliens. She is seeing home RN tomorrow. Labs printed for her. D/w them import of f/u and reasons to rted.
ED Attending Note
-
Portions of this chart may have been created with voice recognition software.� Occasional wrong word or��sound alike� substitutions may have occurred due to the inherent limitations of voice recognition software.
Discharge Plan
Departure
Patient Disposition: Home (Routine Discharge)
Date of Disposition: 02/05/24
Time of Disposition: 15:59
Patient with high blood pressure during this ER visit?: No
Condition: Good
Discharge Problem:
Fever, Vomiting
Instructions: Fever, Adult (DC), Nausea and vomiting in adults
Prescriptions:
No Action
furosemide 10 mg/mL solution
40 mg IV DAILYPRN PRN (Reason: edema)
Patient Comments:
09/03/2023, via picc line.
mirtazapine 30 mg Tablet,Disintegrating
30 mg PO HS
sucralfate 100 mg/mL Suspension
10 ml PO BID
sucralfate 100 mg/mL Suspension
10 ml PO DAILYPRN PRN (Reason: stomach ulcers)
ondansetron HCl 2 mg/mL solution
16 mg IV HS
Patient Comments:
09/03/2023, via picc line.
pantoprazole 40 mg recon soln
40 mg IV BID
Patient Comments:
09/03/2023, via picc line.
diphenoxylate-atropine 2.5-0.025 mg Tablet
1 tab PO TIDPRN PRN (Reason: diarrhea)
cyanocobalamin (vitamin B-12) 1,000 mcg/mL Solution
1,000 mcg IM QMONTH
furosemide 20 mg Tablet
40 mg PO DAILY PRN (Reason: Fluid Retention/Swelling)
sodium chloride 0.9 % Parenteral Solution
1 ea IV QPM
Patient Comments:
RECEIVIES TPN VIA PICC LINE FOR 12 HOURS EACH NIGHT
fluocinonide 0.05 % Solution
1 applic TOPICAL .2-3 TIMES A WEEK PRN (Reason: scalp)
estradiol [Estrace] 0.01 % (0.1 mg/gram) Cream
1 appful VAGINAL .2 TIMES A WEEK
ketoconazole 2 % Cream
1 applic TOPICAL BID PRN (Reason: groin/vaginal area)
sildenafil (pulm.hypertension) 20 mg Tablet
60 mg PO BID
Prolia 60 mg/mL Syringe
60 mg SC [id number]
Patient Comments:
09/03/2023, next dose due in September per pt.
cholecalciferol (vitamin D3) 25 mcg/drop ( 1,000 unit/drop) Drops
50 mcg PO QPM
Thyquidity 20 mcg/mL Solution
560 mcg PO DAILY@0700
Tylenol Extra Strength 500 mg Powder In Packet
500 mg PO BIDPRN PRN (Reason: mild pain)
Blink Eye Drops
1 drp BOTH EYES BID
Blink Eye Drops
1 drp BOTH EYES DAILYPRN PRN (Reason: dry eyes)
Prime Sleep Supplement
1 tab PO HS
Patient Comments:
09/03/2023, contains melatonin.
Unknown Vitamins/Supplements
1 dose IV HS
Patient Comments:
09/03/2023, via picc line; in TPN bag per pt.; unsure of which vitamins and supplements.
Referrals:
Toyin Goldstein MD [Family Provider] - Tomorrow
Activity Restrictions/Additional Instructions:
IF YOU DEVELOP RECURRENT FEVER, VOMITING, ANY ABDOMINAL PAIN, CHEST PAIN, TROUBLE BREATHING, OR OTHER WORRISOME SIGNS, GO TO THE ER IMMEDIATELY!
Interventions
Interventions:
*Risk Screen - Suicide Last Done: 02/05/24 11:50
*General Assessment Last Done: 02/05/24 11:50
*Neglect/Abuse Screening Last Done: 02/05/24 11:50
ED- Fall Risk Assessment Last Done: 02/05/24 11:50
*ED COVID-19 Vaccine History Last Done: 02/05/24 11:50
ED-Musculoskeletal Assessment Last Done: 02/05/24 11:50
ED- Neurological Assessment Last Done: 02/05/24 11:50
ED-Skin Assessment Last Done: 02/05/24 11:50
Discharge Date and Time
Print Language: TURKISH
--- NOTE | 2024-02-05 13:48 | EDRN ---
This RN attempting to mix and administer omnipaque as ordered to pt after talking w/ Dr. Pemberton who said have her drink what she can. Son has arrived and said pt cannot drink omnipaque at all per her GI d/t her gastroporesis that it could harden in
her. Dr. Pemberton informed and pt will get IV contrast only w/ document clerk and CT scan called. Pt presently voiding in BR at this time.
--- NOTE | 2024-02-05 14:00 | EDRN ---
Pt asking to be discharged stating she has no pain in upper legs nor had any N/V since arrival to ER. Dr. Pemberton informed at this time of pt's wish to leave w/out CT.
--- NOTE | 2024-02-05 15:26 | EDRN ---
Pt asking to speak to her physician at this time.
--- NOTE | 2024-02-05 15:40 | EDRN ---
Pt administered ice chips after this RN TT'd Dr. Pemberton about pt wishing to see her and ice chips. Dr. Pemberton said she will be in soon to see pt and pt informed. Pt emptying her ostomy bag in BR at this time.
== END 2024-02-05 16:11 | disposition home or self-care (01) ==
LOC: EMR 10:23
PROVIDERS: Student in an Organized Health Care Education/Training Program; EMERGENCY PHYSICIAN Emergency Medicine; FAMILY PHYSICIAN Family Medicine
DX: R11.2 Nausea with vomiting, unspecified (principal); K31.84 Gastroparesis; E03.9 Hypothyroidism, unspecified; D64.9 Anemia, unspecified; K58.9 Irritable bowel syndrome, unspecified; Z87.440 Personal history of urinary (tract) infections; Z90.710 Acquired absence of both cervix and uterus; Z93.1 Gastrostomy status
CPT/HCPCS: 99284; 96374; 96361; 71046; 74177; 80048; 85025; 87502; 87811; Q9967

== ENCOUNTER 2024-02-06 14:28 | Inpatient (IN) | payer MEDICARE, OTHER, SELFPAY ==
[2024-02-06] VITALS (31 sets, daily range): BP systolic 76–123; BP diastolic 42–88; BMI 21.8
--- NOTE | 2024-02-06 10:45 | ED.GENMED ---
History of Present Illness
General
Chief Complaint: Breathing Problem
Source: patient, records and family
Time Seen by Provider: 02/06/24 10:21
History of Present Illness
History of Present Illness:
73yoF with a history of systemic scleroderma with intestinal dysmotility receiving TPN via PICC line and anemia requiring regular transfusions presenting with her son for evaluation of atraumatic leg pain. Symptoms began around 9:30am this morning
with bilateral leg pain that is worse in the L upper leg. She also reports shortness of breath. She had these same symptoms yesterday and was seen in the ED at that time. She had a temperature of 100.8 at that time. She underwent CT abdomen during
that visit which showed evidence of a small bowel obstruction. This was compared to prior imaging from [facility] and was thought to be her baseline CT. She also underwent CXR which showed 'New small left pleural effusion with associated atelectasis
and/or pneumonia.' Patient ultimately felt better and was discharged. She has not had any fevers or vomiting since discharge. She denies any cough and chest pain. Last bowel movement 2 days ago.
Past History
Past History
ED Past Medical History: Hypothyroidism, Other (Raynaud and scleroderma, Ascities, SBO, Spontanious Bacterial peritonitis, UTI, Fracture Femur, Chronic Nausea), Other (Uterine and rectal prolapse) and Other (Irritable bowel, takes Trulance)
ED Past Surgical History: Bowel resection, Brain (subdural hematoma), Gynecological (Hysterectomy), Orthopedic and Other (Hernia repair, thyroidectomy, vaginal prolapse, rectal prolapse)
Social History
Tobacco: Non-smoker
Alcohol: None
Drug: None
Personal:
Living: with family
Employment: Retired
Family History
Family History: Other (Noncontributory)
Phy Exam
Physical Exam
Physical Exam:
Appears uncomfortable due to leg pain, chronically ill appearing
General Physical Exam
General Skin: warm and dry
General Habitus: elderly and frail
General Mental: alert
ENT Exam
ENT Exam: normocephalic
Cardiovascular Exam
Cardiovascular Exam: regular rate/rhythm and no murmur
Pulmonary Exam
Pulmonary Exam: no respiratory distress, no stridor and no wheezing
Gastrointestinal Exam
Gastrointestinal Exam: other (Multiple surgical scars noted on abdomen. Ostomy bag in place at PEG tube site with dark red output.)
Jose Coma Scale
Eye Opening: Spontaneous
Verbal Response: Oriented
Motor Response: Obeys Commands
GCS Total Score: 15
Musculoskeletal Exam
Musculoskeletal Exam: other (Thighs are normal to inspection. No edema or skin changes noted. No tenderness to palpation. RUE PICC line in place without signs of surrounding cellulitis. )
Skin Exam
Skin Exam: warm/dry
Psychiatric Exam
Psychiatric Exam: normal mood/affect
Scores
Heart Failure Risk
Heart Failure Risk Score: Not Applicable
Course
Orders/Labs/Results
Orders:
Orders
02/06/24 10:42
CR Femur - Left Min 2 Vw Urgent
Comment:
Reason For Exam: pain
Venous Doppler Lwr Ext Bilat [US Periph Venous LOWER Ext Alverto] Urgent
Comment:
Reason For Exam: bilateral leg pain
02/06/24 10:43
CR Chest - 2 Views Urgent
Comment:
Reason For Exam: SOB
02/06/24 10:50
Electrocardiogram (*1) Urgent
Reason for Study: Shortness of Breath
EKG- Treatment ONCE
02/06/24 11:36
Complete Blood Count/With Diff Urgent
Ferritin Urgent
Folate Urgent
Lactate Level [Lactic Acid] Urgent
NT-proBNP Urgent
Comment: ADD ON
Troponin I Urgent
Vitamin B12 Urgent
Comment: IRON,FERRITIN,TIBC,FOLATE,B12 ADDED ON BY FLOOR 1:30PM 02-06-24
02/06/24 11:37
Comprehensive Metabolic Panel Urgent
Iron Urgent
Procalcitonin Urgent
PCT Algorithmm Indication: Sepsis
Total CK [Creatine Phosphokinase] Urgent
Total Iron Binding Urgent
Blood Culture Q30M
PATTIE Source: Blood/Venous
Specimen Description:
02/06/24 11:56
Urinalysis Reflex To Culture Urgent
Date Specimen was Collected: 02/06/24
Time Specimen was Collected: 11:49
Urine Microscopic Reflex Cult Urgent
Urine Culture Urgent
PATTIE Source: U
Specimen Description:
Date Specimen was Collected: 02/06/24
Time Specimen was Collected: 11:49
02/06/24 11:58
Add On- LAB Urgent
Tests Added?: BNP
02/06/24 12:38
Cefepime HCl [Maxipime] 2,000 mg IV NOW STA
02/06/24 12:50
0.9% Sodium Chloride 500 ml [Nss] 500 ml IV BOLUS
02/06/24 12:52
Vancomycin 1 Gram/200 ml [Vancocin] 1 gram in 200 ml IV NOW
02/06/24 13:07
Blood Culture Q30M
PATTIE Source: Blood/Venous
Specimen Description:
02/06/24 13:32
Add On- LAB Urgent
Tests Added?: iron, ferritin, tibc, folate vit b12
02/06/24 14:05
PICC Line As Directed
Comment: RUE PICC Line present upon admission
02/06/24 14:09
Admit/Transfer Patient As Directed
Co-Sign Provider:
Level of Care: Inpatient admission
Assign to:: IMU- Intermediate Care
Physician / Group: Gera
Diagnosis: Hypotension, GI Bleed
Reason for Hospitalization: Protonix drip, IV abx
Expected length of stay greater than two midnights?: Yes
ELOS- Estimated Length of Stay in days: 4
I certify the patient meets the requirements for IP care: Yes
02/06/24 14:10
PRN Pain Medication Management As Directed
May give lesser potent ordered pain med per pt: Yes
preference::
Protocol:: Medication orders for pain may be administered in a
manner that supports deferring to patient preference
when the pt is:
- Requesting an ordered lesser potent pain medication.
Least to most potent pain medications are defined
as: acetaminophen < NSAID < tramadol < opioids
(morphine, oxycodone, hydromorphone).
- Requesting a lesser dose of the same medication IF
ORDERED.
- Requesting a less intrusive route of administration
if both routes are prescribed by the provider (PO <
IV).
02/06/24 14:11
Code Status As Directed
Resuscitation Status: Full Code
02/06/24 14:15
Pantoprazole 80 mg/100 ml Nss [Protonix] 80 mg in 100 ml IV Q10H
02/06/24 14:30
NORepinephrine 4 MG/250 ML [Levophed] 4 mg in 250 ml IV PER PROTOCOL
Initial dose in mcg/min, then titrate:: 2
Titrate to keep:: MAP > 65 mmHg
Titrate by mcg/min:: 1-2 mcg/min
Frequency of titrations (minutes):: 5
Maximum dose in ICU in mcg/min:: 30
Maximum dose in IMU in mcg/min:: 8
Maximum dose in IVU in mcg/min:: 4
Begin to taper infusion when:: Remained at goal for 4hrs
Taper by mcg/min:: 1-2 mcg/min
Frequency of taper (minutes) if patient maintains goal:: 30
Taper to off?: Yes
If infusion off & no longer maintaining goal:: Contact Provider
02/06/24 15:30
Type+Screen Routine
H&H Q6H
Lactate Level [Lactic Acid] Routine
02/06/24 21:30
H&H Q6H
Abnormal Lab Results
02/06/24 02/06/24 02/06/24
11:36 11:37 11:56
WBC 3.8 L 10^3/uL
(4.8-10.8)
RBC 2.47 L 10^6/uL
(4.20-5.40)
Hgb 7.6 L g/dL
(12.0-16.0)
Hct 23.9 L %
(37.0-47.0)
MCHC 31.8 L g/dL
(33.0-37.0)
RDW 21.8 H %
(11.5-14.5)
Plt Count 86 L 10^3/uL
(130-400)
MPV 11.8 H fL
(7.4-10.4)
Absolute Lymphs (auto) 0.2 L 10^3/uL
(1.2-3.4)
Neutrophils % 93.0 H %
(42.2-75.2)
Lymphocytes % 4.3 L %
(20.5-51.1)
Monocytes % 1.6 L %
(1.7-9.3)
BUN 50 H mg/dl
(7-17)
Creatinine 1.1 H mg/dL
(0.6-1.0)
Lactic Acid 2.3 H mmol/L
(0.7-2.0)
Iron < 20 L ug/dl
(37-170)
TIBC 203 L ug/dl
(265-497)
Total Bilirubin 2.2 H mg/dl
(0.2-1.3)
AST 61 H U/L
(14-36)
Alkaline Phosphatase 311 H U/L
(38-126)
Total Protein 5.4 L g/dl
(6.3-8.2)
Albumin 2.3 L g/dl
(3.5-5.0)
Procalcitonin 47.50 H* ng/ml
(0.0-0.25)
Ur Occult Blood Reflex Trace A
(Negative)
Urine Nitrite (Reflex) Positive A
(Negative)
Urine Bilirubin 1+ A
(Negative)
Leukocyte Esterase Rfl Trace A
(Negative)
Urine RBC 7-10 A /HPF
(0-2)
Urine WBC (Reflex) 11-15 A /HPF
(0-5)
Urine Bacteria (Reflex) Many A
(Negative)
02/06/24 11:36
02/06/24 11:37
Vital Signs
Initial and Last Documented VS:
Initial Vital Signs
Temp Pulse Resp BP Pulse Ox
99.6 F 90 20 120/61 95
02/06/24 10:15 02/06/24 10:15 02/06/24 10:15 02/06/24 10:15 02/06/24 10:15
Last Documented Vital Signs
Temp Pulse Resp BP Pulse Ox
99.6 F 83 21 86/46 91
02/06/24 10:15 02/06/24 14:30 02/06/24 14:30 02/06/24 14:30 02/06/24 13:00
MDM/Problems Addressed
Differential Diagnosis Includes:
73yoF here with bilateral leg pain and SOB that began this morning. Also seen in the ED yesterday for similar symptoms. Had a fever of 100.8 at that time. Hx of scleroderma. Receiving TPN via PICC line. Temperature 99.6 in triage. Remainder of
vitals stable. She is chronically ill appearing on exam. No pitting edema in lower extremities. Differential diagnosis includes but is not limited to: viral illness, pneumonia, UTI, bacteremia
Initial ED plan: Check septic workup including blood cultures, lactate, procalcitonin. Will also check venous duplex, cardiac labs, EKG, and CXR.
*EKG
Interpreted by ED Provider?: Yes
EKG Intrepretation Date: 02/06/24
Heart Rate: 97
Rate: normal
Rhythm: sinus
Sheldon: normal axis
QRS Pattern: normal QRS
Ischemia: non-specific ST changes
*Critical Care Note
Total Time (30-74mins, 75-104mins- exclusive of procedures): Not Applicable
Update Note
Update Note:
White count is 3.8 with a left shift. Platelets 86. Lactate 2.3 and procalcitonin 47. UA is nitrite positive with many bacteria. CXR shows evidence of mild pulmonary edema. Patient's blood pressure dropped while in ED with SBP in the 70-80s. IV
fluid bolus ordered. Concern for bacteremia in setting of PICC line and TPN. IV cefepime and vancomycin ordered. She was admitted for further evaluation and management.
ED Attending Note
-
Portions of this chart may have been created with voice recognition software.� Occasional wrong word or��sound alike� substitutions may have occurred due to the inherent limitations of voice recognition software.
Discharge Plan
Departure
Patient Disposition: Admit
Date of Disposition: 02/06/24
Time of Disposition: 12:58
Presentation/result/management discussed w/ accepting MD/DO: Hospitalist
Discharge Problem:
Hypotension, SIRS (systemic inflammatory response syndrome)
Interventions
Interventions:
*Risk Screen - Suicide Last Done: 02/06/24 10:15
*General Assessment Last Done: 02/06/24 10:15
*Neglect/Abuse Screening Last Done: 02/06/24 10:15
ED- Fall Risk Assessment Last Done: 02/06/24 12:00
*ED COVID-19 Vaccine History Last Done: 02/06/24 12:00
ED- Cardiac Assessment Last Done: 02/06/24 11:05
ED- Pulmonary Assessment Last Done: 02/06/24 11:05
[2024-02-06 12:04] LABS: Lactic Acid 2.3 mmol/L (0.7-2.0)
[2024-02-06 12:07] LABS: % Basophils 0.3 % (0-2); % Eosinophils 0.3 % (0-6); % Immature Granulocytes 0.5 % (0-0.5); % Lymphocytes 4.3 % (20.5-51.1); % Monocytes 1.6 % (1.7-9.3); Absolute Lymphocytes 0.2 10^3/uL (1.2-3.4); Absolute Monocytes 0.1 10^3/uL (0.1-0.6); Absolute Neutrophils 3.5 10^3/uL (1.4-6.5); Hematocrit 23.9 % (37.0-47.0); Hemoglobin 7.6 g/dL (12.0-16.0); Mean Corp Hgb Conc. 31.8 g/dL (33.0-37.0); Mean Corpuscular Hgb 30.8 pg (27.0-31.0); Mean Corpuscular Volume 96.8 fL (81.0-99.0); Mean Platelet Volume 11.8 fL (7.4-10.4); Nucleated Red Blood Cells % 0.5 %; Platelet Count 86 10^3/uL (130-400); Red Blood Cell Count 2.47 10^6/uL (4.20-5.40); Red Cell Dist. Width 21.8 % (11.5-14.5); White Blood Cell Count 3.8 10^3/uL (4.8-10.8)
[2024-02-06 12:14] LABS: ALT (SGPT) 28 U/L (0-35); AST (SGOT) 61 U/L (14-36); Albumin 2.3 g/dl (3.5-5.0); Alkaline Phosphatase 311 U/L (38-126); Blood Urea Nitrogen 50 mg/dl (7-17); Calcium 8.4 mg/dl (8.4-10.2); Carbon Dioxide 24 mmol/L (22-30); Chloride 107 mmol/L (98-107); Creatine Phosphokinase 40 U/L (30-135); Estimated Creatinine Clearance 31 ml/min; Glucose 87 mg/dl (70-99); Potassium 4.4 mmol/L (3.5-5.1); Sodium 140 mmol/L (135-145); Total Bilirubin 2.2 mg/dl (0.2-1.3); Total Protein 5.4 g/dl (6.3-8.2); eGFR 53.06
[2024-02-06 12:18] LABS: Troponin I 0.024 ng/ml
[2024-02-06 12:26] LABS: Urine Albumin Trace (Neg - Trace); Urine Bilirubin 1+ (Negative); Urine Character Clear (Clear); Urine Color Yellow; Urine Glucose Negative (Negative); Urine Ketone Negative (Negative); Urine Leukocyte Trace (Negative); Urine Nitrite Positive (Negative); Urine Occult Blood Trace (Negative); Urine Urobilinogen Negative (Neg - 1+)
[2024-02-06 12:38] LABS: Urine Bacteria Many (Negative)
[2024-02-06 12:39] LABS: NT-proBNP 8750 pg/ml
[2024-02-06] MEDS: NSS 500 IV (12:58)
--- NOTE | 2024-02-06 13:04 | HPS.HSE ---
Family Physician
-
Family Physician: Toyin Goldstein
Chief Complaint
-
Leg Pains
History of Present Illness
Patient is a 73 y/o female past medical history of severe systemic scleroderma, gastroparesis requiring TPN and venting gastrostomy who presents with leg pains. Patient was seen here yesterday with fever and vomiting. While in the ED she tested
for COVID and Influenza, but declined blood cultures during that visit. Patient symptoms improved significantly while in the ED and she opted for discharge home. Today patient developed significant pain in her legs. She was unable to ambulate due
to the pain prompting her to return the ED. While in the ED she was found to have significant hypotension. She denies any recurrent fevers or episodes of vomiting since yesterday. She denies cough, shortness of breath, chest pain, palpitations,
dizziness, abdominal pain, dysuria or urinary frequency.
Medical History
Past Medical History
Past Medical History: Reports Other
Additional Past Medical History:
Severe Systemic Scleroderma
Chronic Gastroparesis with TPN Dependence
Non-Healing Gastrostomy
Pulmonary Hypertension
Chronic HFpEF
CKD Stage III
Anemia of Chronic Disease
Post-Surgical Hypothyroidism
Chronic LFT Elevation
Anxiety/Depression
GERD
Osteoporosis
Traumatic Subdural Hematoma
Past Surgical History: Reports Other
Additional Past Surgical History:
Thyroidectomy
Hysterectomy
Hernia Repair
Right Hip Replacement
Left Hip ORIF
Craniotomy
Social History
Tobacco: Non-smoker
Alcohol: None
Family History
Family History: Not pertinent
Allergies / Home Medications
Allergies reflects when Allergies were last updated in [facility].
Home Medications with original date entered in [facility]
Allergy/Medication List:
Allergies
Allergy/AdvReac Type Severity Reaction Status Date / Time
amoxicillin Allergy diarrhea Verified 02/06/24 10:18
azithromycin [From Zithromax] Allergy itchy at Verified 02/06/24 10:18
IV site;
patient
has
tolerated
since
Home Medications
cyanocobalamin (vitamin B-12) 1,000 mcg/mL injection solution 1,000 mcg IM QMONTH Supplement 09/03/23
denosumab 60 mg/mL subcutaneous syringe (Prolia) 60 mg SC [id number] Osteoporosis 09/03/23
estradiol 0.01% (0.1 mg/gram) vaginal cream (Estrace) 1 appful vaginal SUWE Hormonal Agent 09/03/23
furosemide 10 mg/mL injection solution 40 mg IV DAILYPRN PRN edema 09/03/23
levothyroxine 20 mcg/mL oral solution (Thyquidity) 560 mcg PO DAILY@0700 Thyroid 09/03/23
mirtazapine 30 mg disintegrating tablet 30 mg PO HS Mental Health/Anxiety 09/03/23
pantoprazole 40 mg intravenous solution 40 mg IV BID Gastrointestinal Issue 09/03/23
sildenafil (pulm.hypertension) 20 mg tablet 60 mg PO BID Pulmonary hypertension 09/03/23
sucralfate 100 mg/mL oral suspension 10 ml PO QID Gastrointestinal Issue 09/03/23
amlodipine 2.5 mg tablet 2.5 mg PO DAILY 02/06/24
cholecalciferol (vitamin D3) 25 mcg (1,000 unit) tablet (Vitamin D3) 25 mcg PO DAILY 02/06/24
hydroxyzine HCl 10 mg tablet 10 mg PO TIDPRN PRN itch 02/06/24
lorazepam 0.5 mg tablet 0.5 mg PO HSPRN PRN sleep 02/06/24
polyethylene glycol 400 0.25 % eye drops (Blink Tears) 1 drp ophthalmic (eye) DAILYPRN PRN dry eyes 02/06/24
Review of Systems
-
A 12 point ROS was completed and negative except as noted: Yes
Constitutional: Reports Fever
Respiratory: Reports Trouble Breathing; Denies Cough
Cardiac: Denies Chest Pain or Palpitations
Abdomen/GI: Reports Nausea and Vomiting; Denies Abdominal Pain or Diarrhea
Physical Exam
Vital Signs
Vital Signs
Temp Pulse Resp BP Pulse Ox
99.6 F 89 19 94/45 86
02/06/24 10:15 02/06/24 11:45 02/06/24 11:45 02/06/24 11:15 02/06/24 11:16
Physical Exam
General: Comfortable and Conversant
HEENT: Anicteric and Moist mucous membranes
Respiratory: Clear and Non Labored Respirations
Cardiac: S1/S2 and Regular Rhythm
GI: Soft, Non Tender and Other (Prior venting gastrostomy site now with tube removed, Ostomy bag with red liquid present)
Musculoskeletal: No Clubbing, No Cyanosis, No Edema and Other (Bilateral sausage digits consistent with scleroderma)
Skin: Warm and Dry
Neuro: Awake, Alert, Oriented and Nonfocal/grossly intact
Psych: Calm
Laboratory Results
-
02/06/24 11:36
02/06/24 11:37
Laboratory Results
Lactic Acid 2.3 mmol/L (0.7-2.0) H 02/06/24 11:36
Total Bilirubin 2.2 mg/dl (0.2-1.3) H 02/06/24 11:37
AST 61 U/L (14-36) H 02/06/24 11:37
ALT 28 U/L (0-35) 02/06/24 11:37
Alkaline Phosphatase 311 U/L (38-126) H 02/06/24 11:37
Troponin I 0.024 ng/ml 02/06/24 11:36
Data Reviewed
-
CT Scan: Report Reviewed by me
Lab Data: Labs Reviewed by me
Old Records: Reviewed
Impression/Plan
-
SIRS (leukopenia, and fever)
-High clinical concern for bacterial infection given elevated lactic acid level and significantly elevated procalcitonin
-Continue Vancomycin and Cefepime
-Await blood cultures
GI Bleed
-Ostomy bag covering non-healing gastrostomy tube site with apparent red blood
-Consult GI
-Start Protonix drip
-Trend serial Hgb - Blood consent obtained
-Plan for blood transfusion if Hgb continue to trend downward
Hypotension, possibly from sepsis vs acute blood loss
-Hold amlodipine and sildenafil
-Plan for Levophed if BP not improving after IVFs
Chronic HFpEF
-Monitor Is&Os and Daily Weights
Pulmonary Hypertension
-Hold sildenafil in setting of hypotension
CKD Stage III
-Creatinine at baseline
Post-Surgical Hypothyroidism
-Continue levothyroxine
DVT proph: SCDs
Code Status: Full Code
[2024-02-06] MEDS: MAXIPIME 2000 MG IV ×2 (13:13→23:31)
[2024-02-06] MEDS: VANCOCIN 200 IV (13:13)
--- NOTE | 2024-02-06 14:00 | VATNOTE ---
At pt bedside with pt's son and hospitalist, discussed need for additional IV access given pt's possible need for pressors and antibiotics. No possibility for TPN tonight given the time. Hospitalist, pt, and family are comfortable with using the TPN
lumen of her PICC line if we need an additional lumen for vasopressors. Will hold starting additional lines at this time, pt, family, and hospitalist in agreement.
--- NOTE | 2024-02-06 14:35 | W.PN.UPDATE ---
Update Note
Progress Note Update
This is an addendum to the H&P written by Aidee Jensen on 02/06/2024.
Patient seen and examined independently with PA.
73-year-old female past medical history of systemic scleroderma with GI involvement, gastroparesis on TPN through PICC line with venting gastrostomy, gastroparesis, hiatal hernia, PICC line infection last year, presenting with vomiting yesterday
with fever and leg pain. Symptoms improved and now no symptoms.
Patient has a complicated history of systemic scleroderma with GI involvement. She receives all her care at [facility]. 2 years ago she had a small bowel obstruction and underwent surgery since that time she has had a venting gastrostomy.
Last year she had PICC line infection and PICC line was removed at that time.
Over the past few months patient has had dark red drainage from her gastrostomy site. She saw GI who performed endoscopy and saw gastritis/hiatal hernia. No clear cause for the bleeding was found. Patient received multiple blood transfusions with
hemoglobin close to 7.5 at baseline.
Patient is also had prior CAT scans which showed small bowel obstruction however her colorectal surgeon states that due to her anatomy this is a baseline finding.
Patient is clinically hypotensive and although she appears nontoxic without any symptoms there is some concern for infection given procalcitonin 47. PICC line appears clean. IV fluids. Check blood cultures. Hold TPN until bacteremia ruled out.
Empiric vancomycin/Zosyn to cover GI infection versus PICC line related bacteremia.
Hemoglobin 7.6. Bleeding appears to be from the stomach. NPO. 1 unit blood transfusion which might be difficult given antibodies. Check iron studies. Protonix. GI consulted.
Once patient is hemodynamically stable and infection has been ruled out, she would likely require transfer to [facility] for further interventions if necessary.
[2024-02-06] MEDS: LEVOPHED 250 IV (14:36)
[2024-02-06 14:46] LABS: Iron < 20 ug/dl (37-170); Total Iron Binding Capacity 203 ug/dl (265-497)
[2024-02-06] MEDS: PROTONIX 100 IV ×2 (14:46→23:31)
--- NOTE | 2024-02-06 15:19 | CON.GI ---
Addendum entered and electronically signed by Corrie Pan MD 02/06/24 17:17:
I saw and examined the patient.
The medical billing service note was reviewed and I agree with the note.
--Systemic scleroderma /severe gastroparesis/venting G-tube in the past -removed few months back at [facility] currently attached to a bag/chronic TPN/PICC line infection last year/history of small bowel obstruction
-- Sepsis/fever elevated calprotectin/
-- Bloodstained gastric content in the bag attached to prior G-tube site. Acute on chronic anemia
-- Elevated liver test
-- Multiple hospital admission at [facility] requiring blood transfusion.
CT abdomen/pelvis 02/05/2024
IMPRESSION:
1. Proximal small bowel obstruction with transition point in the left midabdomen. similar to prior changes
plan
Workup for sepsis as per medical team. Consider line sepsis /ID eval
Continue antibiotics as per medical team
Continue monitor H&H
Discussed about endoscopic evaluation-benefits and risk with patient/patient's son at bedside. Patient/patient's son would like to hold off on endoscopic evaluation at [facility] for now. As per son bloody discharge from G-tube has been
chronic. She underwent multiple EGDs at [facility] and was unable to find out actual bleeding. Last EGD was December 2023. We need to obtain prior records from [facility]
Continue monitor LFT
Will check ultrasound abdomen
Original Note:
Consultation
-
Date/Time Consultation Requested: 02/05
Date/Time Consultation Performed: 02/05,15:15pm
Requesting Provider: Aidee Claros
Performing Provider: Corrie Pan
Reason for Consultation: Blleding in the gastrostomy bag
Medical History
Chief Complaint / HPI
Chief Complaint: Bleeding in gastrostomy bag and drop in hemoglobin
History of Present Illness:
Patient is a 63 year old female with past medical history of systemic sclerosis and severe gastroparesis treated with TPN and venting gastrostomy,past small bowel obstruction treated with surgery,PICC infection last year,received multiple blood
transfusions in the past year and had endoscopies done in May 2023 and december 2023 that showed mild esophagitis and hiatal hernia.
She follows up with Dr. Fabiana Acosta,her laborer ammunition assembly at [facility]. She was admitted in for anemia with a drop in hemoglobin to 5.7 and received 2 packed RBC infusions.She had dark brown stool mixed with blood in the
gastrostomy bag.An endoscopy was done that showed mild esophagitis but no clear source of bleeding.She has been receiving IV omeprazole through her PICC line twice daily.Her PICC got infected last year and has been replaced.
She presented Yesterday to the ER,she had a fever of 101,vomiting but no bleed and was shaking.Her CT_abdomen was read as concerning for SBO but as per her Colorectal surgeon note it is due to her gastroparesis and the findings are unchanged from
her last CT scans.She remained in the ER,treated symptomatically,felt better and was discharged on request.
Today,she had a similar episode,her gastrostomy bag showed some evidence of blood mixed with stool.Her Hgb was 7.6,down from 8.5 yesterday.Patient is symptomatically normal with no dizziness,weakness,abdominal pain,nausea,vomiting or diarrhea.She
denies an apetite,sleep or weight changes.
Based on blood work in the ER on 02/05,there is normal wbc count,but elevated procalcitonin suggesting a source of infection.
Past Medical History
Past Medical History: GERD, HTN, Hypothyroidism (post surgery) and Other (Systemic sclerosis,Gastroparesis,Gastrostomy)
Past Surgical History: Bowel Resection, Gynecological (hysterectomy), Orthopedic (right hip replacement, left hip ORIF) and Other (thyroidectomy)
Social History
Tobacco: Non-Smoker
Alcohol: None
Living: With Family (Santo(son) take cares of her)
Family History
Family History: Reviewed & Not Pertinent
Allergies / Home Medications
Allergy/AdvReac Type Severity Reaction Status Date / Time
amoxicillin Allergy diarrhea Verified 02/06/24 10:18
azithromycin [From Zithromax] Allergy itchy at Verified 02/06/24 10:18
IV site;
patient
has
tolerated
since
�Medication �Instructions �Recorded
cyanocobalamin (vitamin B-12) 1,000 mcg IM QMONTH Supplement 09/03/23
1,000 mcg/mL injection solution
denosumab 60 mg/mL subcutaneous 60 mg SC [id number] Osteoporosis 09/03/23
syringe (Prolia)
estradiol 0.01% (0.1 mg/gram) 1 appful vaginal SUWE Hormonal 09/03/23
vaginal cream (Estrace) Agent
furosemide 10 mg/mL injection 40 mg IV DAILYPRN PRN edema 09/03/23
solution
levothyroxine 20 mcg/mL oral 560 mcg PO DAILY@0700 Thyroid 09/03/23
solution (Thyquidity)
mirtazapine 30 mg disintegrating 30 mg PO HS Mental Health/Anxiety 09/03/23
tablet
pantoprazole 40 mg intravenous 40 mg IV BID Gastrointestinal Issue 09/03/23
solution
sildenafil (pulm.hypertension) 20 60 mg PO BID Pulmonary hypertension 09/03/23
mg tablet
sucralfate 100 mg/mL oral 10 ml PO QID Gastrointestinal Issue 09/03/23
suspension
amlodipine 2.5 mg tablet 2.5 mg PO DAILY 02/06/24
cholecalciferol (vitamin D3) 25 25 mcg PO DAILY 02/06/24
mcg (1,000 unit) tablet (Vitamin
D3)
hydroxyzine HCl 10 mg tablet 10 mg PO TIDPRN PRN itch 02/06/24
lorazepam 0.5 mg tablet 0.5 mg PO HSPRN PRN sleep 02/06/24
polyethylene glycol 400 0.25 % eye 1 drp ophthalmic (eye) DAILYPRN 02/06/24
drops (Blink Tears) PRN dry eyes
Review of Systems
-
All other systems: A 12 pt ROS was Negative except as stated above in HPI
Vital Signs
Temp Pulse Resp BP Pulse Ox
99.6 F 83 21 86/46 91
02/06/24 10:15 02/06/24 14:30 02/06/24 14:30 02/06/24 14:30 02/06/24 13:00
Physical Exam
Exam
General: No Apparent Distress and Comfortable
HEENT: Anicteric and Moist Mucous Membranes
Respiratory: Clear
Cardiac: S1/S2 and Regular Rhythm
GI: Soft, Normal Bowel Sounds, Distended and Other (Gastrostomy bag in Left upper quadrant)
Genito-urinary: No Costovertebral Tender
Musculoskeletal: No Clubbing and Edema (mild)
Skin: Warm
Neuro: Awake and No Motor Deficits
Hematologic/Lymphatic: No Lymphadenopathy
Psych: Calm
Results
WBC 3.8 10^3/uL (4.8-10.8) L 02/06/24 11:36
Hgb 7.6 g/dL (12.0-16.0) L 02/06/24 11:36
Hct 23.9 % (37.0-47.0) L 02/06/24 11:36
MCV 96.8 fL (81.0-99.0) 02/06/24 11:36
Plt Count 86 10^3/uL (130-400) L 02/06/24 11:36
Absolute Neuts (auto) 3.5 10^3/uL (1.4-6.5) 02/06/24 11:36
Sodium 140 mmol/L (135-145) 02/06/24 11:37
Potassium 4.4 mmol/L (3.5-5.1) 02/06/24 11:37
Chloride 107 mmol/L (98-107) 02/06/24 11:37
Carbon Dioxide 24 mmol/L (22-30) 02/06/24 11:37
BUN 50 mg/dl (7-17) H 02/06/24 11:37
Creatinine 1.1 mg/dL (0.6-1.0) H 02/06/24 11:37
Calcium 8.4 mg/dl (8.4-10.2) 02/06/24 11:37
Total Bilirubin 2.2 mg/dl (0.2-1.3) H 02/06/24 11:37
AST 61 U/L (14-36) H 02/06/24 11:37
ALT 28 U/L (0-35) 02/06/24 11:37
Alkaline Phosphatase 311 U/L (38-126) H 02/06/24 11:37
Diagnostic Image Results:
Prior GI Procedures:
EGD:
Colonoscopy:
Assessment / Plan
-
IMPRESSION
Patient is a 63 year old female with past medical history of systemic sclerosis and severe gastroparesis treated with TPN and venting gastrostomy,past small bowel obstruction treated with surgery,PICC infection last year,received multiple blood
transfusions in the past year and had endoscopies done in May 2023 and december 2023 that showed mild esophagitis and hiatal hernia.
ASSESSMENT
Acute on chronic blood loss anemia
Systemic sclerosis with severe gastroparesis,gastrostomy bag in place
On Total parentral nutrition
Multiple episodes of blood in the ostomy bag mixed with stool
Multiple endoscopies,inconclusive about the source of bleed,esophagitis
8-10 blood transfusions over the last year
Most recent,december 2023 admission to [facility] for similar episode
Patient on iron supplements and follows with GI
SMALL BOWEL OBSTRUCTION/UNCHANGED CT ABDOMEN
Patient admitted yesterday for Vomiting,abdominal and leg pains
CT abdomen consistent with SBO
NOTE from regular colorectal surgeon,unchanged ct scan from previous
Likely appear to be a role of gastroparesis
No intervention needed
SEPSIS
Patient had a fever of 101 yesterday
No leukocytosis
no fever today
patient appears nontoxic
Procalcitonin level elevated
Blood cultures sent
Started on broad spectrum antibiotics empirically
All other medical conditions stable
PLAN
Continue IV antibiotics
Temperature and WBC charting
Monitor Hgb levels
Monitor gastrostomy bag for any bleed
Monitor vitals
If hemoglobin drops,can consider further workup
-
-
Thank you for consultation and allowing me to participate in the patient's care. Please call the commissions analyst GI physician during the after hours with any questions or concerns.
[2024-02-06 16:02] LABS: Folate 17.4 ng/ml (2.76-20); Vitamin B12 880 pg/ml (239-931)
--- NOTE | 2024-02-06 16:31 | PHA.VAN.IN ---
Assessment
- Assessment
Renal Function: Appears elevated from baseline (0.9)
Concomitant Antimicrobials: cefepime
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
Plan
- Plan
Initial / Loading Dose: vanc 1000mg + additional 500mg for split loading dose
Maintenance Regimen: dosing by level
Monitoring: random level 02/06 0600
Pharmacokinetics Vancomycin I
- -
Patient Age: 73
Patient Sex: Female
Vancomycin Day #: 1
Indication: Bacteremia
Requesting Provider: Aidee Pina
Pertinent Antimicrobial Allergies:
amoxicillin (diarrhea), azithromycin IV (itchy at IV site)
Height / Weight:
Height 4 ft 11 in
Actual Weight 48.9 kg
- Vital Signs / Lab Results
Temp Pulse Resp BP Pulse Ox
99.6 F 96 18 103/52 91
02/06/24 10:15 02/06/24 15:35 02/06/24 15:35 02/06/24 15:35 02/06/24 13:00
Lab Results - Hematology
02/06/24
11:36
WBC 3.8 L
Lab Results - Chemistry
02/06/24
11:37
BUN 50 H
Creatinine 1.1 H
Estimated Creat Clear 31
Albumin 2.3 L
02/06/24
11:36
Lactic Acid 2.3 H
Lab Results - Urine
02/06/24
11:56
Urine Nitrite (Reflex) Positive A
Leukocyte Esterase Rfl Trace A
Urine WBC (Reflex) 11-15 A
Ur Squamous Epith Cells 11-15
Urine Bacteria (Reflex) Many A
[2024-02-06 18:10] LABS: Hemoglobin 7.9 g/dL (12.0-16.0)
[2024-02-06 18:28] LABS: Lactic Acid 0.9 mmol/L (0.7-2.0)
[2024-02-06] MEDS: VANCOCIN HCL 500 MG 100 IV (19:35)
--- NOTE | 2024-02-06 19:42 | PTCARENOTE ---
pt arrived from [facility] this afternoon. see nursing assessment. sinus rythym on monitor. o2 2liters placed for sats 88 on room air. sat 96 on 2liters currently. levophed infusing per protocol to maintain map of 65 or greater. pt used own catheter to
straight cath herself . old g tube site with ostomy bag in place draining blood tinged fluid.
[2024-02-06 21:38] LABS: Hematocrit 24.2 % (37.0-47.0); Hemoglobin 7.5 g/dL (12.0-16.0)
[2024-02-06] MEDS: REMERON ODT 30 MG PO (21:43)
[2024-02-06] MEDS: STERILE WATER FOR INJECTION 10 ML IV (23:31)
[2024-02-07] VITALS (41 sets, daily range): BP systolic 83–137; BP diastolic 49–71; BMI 21.4
--- NOTE | 2024-02-07 01:30 | PTCARENOTE ---
assumed care of patient, pt is AAOx3- able to make needs known. pt on levo gtt at 2mcg/min to keep MAP>65. pt does self cath herself at home, has own supplies here. notified [facility], order entered to allow patient to self cath self. some
bloody liquid noted from old G tube site. tried to wean patient off oxygen, dropped to 87% on RA- 2L NC reapplied, now 97%. care ongoing.
[2024-02-07 06:38] LABS: Vancomycin Random 15.3 ug/ml
[2024-02-07 06:44] LABS: Hematocrit 25.7 % (37.0-47.0); Hemoglobin 7.9 g/dL (12.0-16.0); Mean Corp Hgb Conc. 30.7 g/dL (33.0-37.0); Mean Corpuscular Hgb 30.9 pg (27.0-31.0); Mean Corpuscular Volume 100.4 fL (81.0-99.0); Mean Platelet Volume 11.8 fL (7.4-10.4); Platelet Count 89 10^3/uL (130-400); Red Blood Cell Count 2.56 10^6/uL (4.20-5.40); Red Cell Dist. Width 21.8 % (11.5-14.5); White Blood Cell Count 5.9 10^3/uL (4.8-10.8)
[2024-02-07 06:45] LABS: ALT (SGPT) 29 U/L (0-35); AST (SGOT) 59 U/L (14-36); Albumin 2.1 g/dl (3.5-5.0); Alkaline Phosphatase 296 U/L (38-126); Blood Urea Nitrogen 41 mg/dl (7-17); Calcium 7.7 mg/dl (8.4-10.2); Carbon Dioxide 22 mmol/L (22-30); Chloride 110 mmol/L (98-107); Estimated Creatinine Clearance 31 ml/min; Glucose 73 mg/dl (70-99); Phosphorus 2.7 mg/dl (2.5-4.5); Sodium 142 mmol/L (135-145); Total Bilirubin 2.4 mg/dl (0.2-1.3); Total Protein 5.2 g/dl (6.3-8.2); eGFR 53.06
--- NOTE | 2024-02-07 09:06 | W.PN.GI.CBS2 ---
Addendum entered and electronically signed by Corrie Pan MD 02/07/24 19:09:
ok to advance to her prior oral diet
No further recommendations - will s/o
Addendum entered and electronically signed by Corrie Pan MD 02/07/24 14:38:
I saw and examined the patient.
The HEAD CHAR FILTER TANK TENDER's note was reviewed and I agree with the note.
-- Bloodstained gastric content in the bag attached to prior G-tube site. No further bleeding this a.m. Hb stable
--- Acute on chronic anemia
--Systemic scleroderma /severe gastroparesis/venting G-tube in the past -removed few months back at [facility] currently attached to a bag/chronic TPN/PICC line infection last year/history of small bowel obstruction
-- Sepsis/fever elevated calprotectin- blood with gram neg bacilli
--CT with reading of SB obstruction with mid abd transition point
-chronic TPN use for nutrition
-- Elevated liver test -can be secondary to sepsis versus chronic TPN use
-- Multiple hospital admission at [facility] requiring blood transfusion.
plan
Further management of sepsis as per medical team
ID eval
Continue monitor H&H
PPI twice daily
Patient/patient's family would like to hold off on GI intervention at .
Initiation of TPN after sepsis workup as per medical team
Patient needs to monitor LFT as outpatient with chronic TPN. Will recommend follow-up with GI with regard to elevated LFT as outpatient
Recommend follow-up with GI at [facility] on discharge -( reinsertion of venting G-tube/colonoscopy )
Original Note:
Today's Communication / Plan
-
no signs of aggressive bleeding this am
hbg 7.9
if continued anemia transfuse as needed
pt defers EGD with prior in past with [facility] and current sepsis with pressors
Workup for sepsis as per medical team. Consider line sepsis /ID eval-- cx with gram neg bacilli
Continue antibiotics as per medical team
Continue monitor H&H
Dr. Pan reviewed with son who agrees with holding scoptes
I requested prior EGD's at [facility]
Continue monitor LFT--may be elevated with sepsis vs chronic TPN use
ultrasound abdomen pending
consider advancing diet after US --will review with nursing staff home diet as chronic TPN and bowel issues
plan for colonoscopy at [facility]- discussed she will need to review with [facility] for prep but consider replacing GT for peg to proceed
Assessment / Plan
-
IMPRESSION
Patient is a 63 year old female with past medical history of systemic sclerosis and severe gastroparesis treated with TPN and venting gastrostomy(now out but site not closed),past small bowel obstruction treated with surgery,PICC infection last
year,received multiple blood transfusions in the past year and had endoscopies done in May 2023 and december 2023 that showed mild esophagitis and hiatal hernia. Now presents with leg pain/chills with concern for sepsis with elevated procal,
hypotension requiring pressures. She is also noted with blood in peg site bag which has been a chronic issue with follow at [facility].
-- Bloodstained gastric content in the bag attached to prior G-tube site.
--- Acute on chronic anemia
--Systemic scleroderma /severe gastroparesis/venting G-tube in the past -removed few months back at [facility] currently attached to a bag/chronic TPN/PICC line infection last year/history of small bowel obstruction
-- Sepsis/fever elevated calprotectin- blood with gram neg bacilli
--CT with reading of SB obstruction with mid abd transition point
-chronic TPN use for nutrition
-- Elevated liver test
-- Multiple hospital admission at [facility] requiring blood transfusion.
CT abdomen/pelvis 02/05/2024
IMPRESSION:
1. Proximal small bowel obstruction with transition point in the left midabdomen. similar to prior changes
plan
no signs of aggressive bleeding this am
hbg 7.9
if continued anemia transfuse as needed
pt defers EGD with prior in past with [facility] and current sepsis with pressors
Workup for sepsis as per medical team. Consider line sepsis /ID eval-- cx with gram neg bacilli
Continue antibiotics as per medical team
Continue monitor H&H
Dr. Pan reviewed with son who agrees with holding scoptes
I requested prior EGD's at [facility]
Continue monitor LFT--may be elevated with sepsis vs chronic TPN use
ultrasound abdomen pending
consider advancing diet after US --will review with nursing staff home diet as chronic TPN and bowel issues
plan for colonoscopy at [facility]- discussed she will need to review with [facility] for prep but consider replacing GT for peg to proceed
Subjective
Subjective
Date of Service: February 07, 2024
less bleeding from prior peg site. Only minimal brown tinged liquid in bag this am currently NPO-- feeling better asking about discharge but still remains on pressure
Objective
Data Reviewed
Laboratory Data:
Laboratory Results
02/07/24 05:51
02/07/24 05:51
Laboratory Results
Phosphorus 2.7 mg/dl (2.5-4.5) 02/07/24 05:51
Magnesium 2.0 mg/dl (1.6-2.3) 02/07/24 05:51
Total Bilirubin 2.4 mg/dl (0.2-1.3) H 02/07/24 05:51
AST 59 U/L (14-36) H 02/07/24 05:51
ALT 29 U/L (0-35) 02/07/24 05:51
Alkaline Phosphatase 296 U/L (38-126) H 02/07/24 05:51
Vital Signs and I&O:
Vital Signs
Temp Pulse Resp BP Pulse Ox
98.2 F 71 14 110/53 96
02/07/24 05:14 02/07/24 06:00 02/07/24 06:00 02/07/24 06:00 02/07/24 06:00
I&O
02/06/24 02/07/24 02/08/24
06:59 06:59 06:59
Output Total 500 / 500
Balance -500 / -500
Physical Exam
Physical Exam
HEENT: Anicteric and Moist mucous membranes
Cardiology: Normal Sinus Rhythm
Pulmonary: Clear
GI: Soft, Distended (mild ), Non Tender and Other (old peg site with minimal drainage brown appears non bloody)
Extremities: Other (minimal LE redness ? with tightness chronic with scleraderma )
Neuro: Non Focal
[2024-02-07] MEDS: PROTONIX IV (10:57)
[2024-02-07] MEDS: MAXIPIME 2000 MG IV ×2 (11:15→23:49)
[2024-02-07] MEDS: STERILE WATER FOR INJECTION 10 ML IV ×2 (11:15→23:49)
--- NOTE | 2024-02-07 13:32 | PTCARENOTE ---
Assumed care of patient this morning. She is aaox3, pleasant. Pt was tapered off of Levo @ 11:00. MAPs remain >65. Pt asked to get OOB to chair and use bathroom. Pt steady on her feet. Pt also self catheterized as well while in bathroom. Pt later
asked to walk around unit. Pt's BP stable and denied any lightheadedness or dizziness. Pt remains on 2L of O2, attempted to wean to RA and pt dropped into 80s. Assessment, care and VS as charted.
--- NOTE | 2024-02-07 13:44 | CON.ID ---
Addendum entered and electronically signed by Sharon Lieberman MD 02/07/24 17:25:
I personally performed a history and physical exam of the patient and discussed management with the resident. I reviewed the resident's note and agree with the documented findings and plan of care HPI/CC.
73 year old female with advanced CREST/scleroderma, gastroparesis, small bowel dysmotility requiring TPN via PICC, hx of SBO requiring G-tube for decompression, G-tube temporarily removed, anemia requiring multiple transfusions at [facility],
12/2023 upper endoscopy showed gastritis with friable tissue, urinary retention, self-catheterizes who initially presented to ED 02/04 with N/V and fever to 101.3. She was discharged and she did not want to be admitted. She returned to ED 02/05 due
to rigors, bilateral thigh pain and weakness. BP was low. Admission blood cultures + E. coli. Ucx also + E. coli. Pt reports increased urinary frequency without urgency or dysuria. No flank pain. No abdominal pain or diarrhea. No eating out. Ate
cooked squash, no carrots. Had precut fresh fruits. CT a/p no acute change. She feels good today and will like to go home tomorrow.
# E. coli bacteremia
- Suspect urinary source. Pt with urinary frequency.
- PICC line also potential source, but no need to remove.
- Repeat bcx x 1.
-Continue cefepime pending susceptibility result.
- Will need outpatient IV abx as patient has poor GI absorption with oral meds.
Original Note:
Consultation
-
Date/Time Consultation Requested: 02/07/2024
Date/Time Consultation Performed: 02/07/2024
Requesting Provider: Kelby Sanchez MD
Performing Provider: Sharon Lieberman MD
Reason for Consultation: Sepsis
Chief Complaint / Past History
Chief Complaint
fever, vomiting, leg pain
History of Present Illness
This is a 73-year-old female with past medical history of systemic scleroderma, Chronic gastroparesis requiring TPN through PICC line with venting gastrostomy, prior PICC line infection in 2022, who presented to ER 02/06/2024 complaining of
vomiting, fever and bilateral leg pain more prominent in the left. Patient reports developing significant pain in her legs, causing difficulty with ambulation prompting her to present to the ED. Additionally, she had a small bowel obstruction 2
years ago and underwent surgery, since that time she has had a venting gastrostomy. She has required multiple transfusions in the past year and has had endoscopies done at [facility] where she receives all her care. On presentation to
ER, patient was afebrile with blood pressure 102/61, pulse 90, respiratory rate 20. Laboratory showed WBC 3.8, hemoglobin 7.6, platelet 86, lactic acid 2.3, procalcitonin 47.50. Evaluation with a chest x-ray showed early or mild congestive heart
failure with a small left lower effusion. Urinalysis positive for nitrites and bacteria with squamous epithelial cells 11�15. Patient reports increased urine frequency. Denies Urgency or Pain with urination. Patient self-cath 6 times a day. She
denies urinary retention. She denies Diarrhea. We are asked to evaluate patient from an infectious disease standpoint.
Past History
Past Medical History: Other (Systemic scleroderma, gastroparesis with TPN dependence, pulmonary hypertension, chronic HFpEF, CKD stage III, anemia of chronic disease, postsurgical hypothyroidism, chronic transaminitis, anxiety, depression, GERD,
osteoporosis, subdural hematoma, prior PICC line infection.)
Past Surgical History: Other (Thyroidectomy, hysterectomy, hernia repair, left hip replacement, left hip ORIF, craniotomy)
Allergy History:
amoxicillin Allergy (Verified 02/06/24 10:18)
diarrhea
azithromycin [From Zithromax] Allergy (Verified 02/06/24 10:18)
itchy at IV site; patient has tolerated since
Medications Reviewed: Yes
Current Antibiotics:
Cefepime
Vancomycin
Social History
Tobacco: Non-Smoker
Alcohol: None
Family History
Family History: Not Pertinent
Review of Systems
Review of Systems
General: Negative Fever or Chills
HEENT: Negative Headache or Pharyngitis
Cardiovascular: Negative Chest Pain or Dyspnea
Respiratory: Negative Dyspnea or Cough
Gasteroenterology: Negative Nausea or Vomiting
Genital / Urological: Negative Dysuria
Endocrine: Negative Weakness or Fatigue
Vital Signs
02/06/24 13:07 Blood Culture - Preliminary
Blood/Venous Escherichia coli
Gram Stain - Preliminary
02/06/24 11:56 Urine Culture - Preliminary
Urine Escherichia coli
02/06/24 11:37 Blood Culture - Preliminary
Blood/Venous Positive culture in progress
Gram Stain - Preliminary
Temp Pulse Resp BP Pulse Ox
97.2 F 83 20 109/65 91
02/07/24 07:20 02/07/24 13:00 02/07/24 13:00 02/07/24 13:00 02/07/24 13:00
Physical Exam
Physical Exam
Constitutional: Acutely Ill
Eyes: Sclera Anicteric
Cardiovascular: Regular Rate and S1/S2
Pulmonary: Other (Mild crackles)
Gastrointestinal: Soft, Non Tender, Non Distended and Normal Bowel Sounds
Neurological: Awake, Alert, Oriented and AO x 3
Lines: PICC
Lab / Diagnostic Study Results
02/07/24 05:51
02/07/24 05:51
Abs Immat Gran (auto) 0.0 10^3/uL (0-0.05) 02/06/24 11:36
Absolute Neuts (auto) 3.5 10^3/uL (1.4-6.5) 02/06/24 11:36
Absolute Lymphs (auto) 0.2 10^3/uL (1.2-3.4) L 02/06/24 11:36
Absolute Monos (auto) 0.1 10^3/uL (0.1-0.6) 02/06/24 11:36
Absolute Basos (auto) 0.0 10^3/uL (0-0.2) 02/06/24 11:36
Immature Gran % 0.5 % (0-0.5) 02/06/24 11:36
Neutrophils % 93.0 % (42.2-75.2) H 02/06/24 11:36
Lymphocytes % 4.3 % (20.5-51.1) L 02/06/24 11:36
Monocytes % 1.6 % (1.7-9.3) L 02/06/24 11:36
Eosinophils % 0.3 % (0-6) 02/06/24 11:36
Basophils % 0.3 % (0-2) 02/06/24 11:36
Lactic Acid 0.9 mmol/L (0.7-2.0) 02/06/24 17:56
Procalcitonin 47.50 ng/ml (0.0-0.25) H* 02/06/24 11:37
Ur Squamous Epith Cells 11-15 /LPF (Few) 02/06/24 11:56
Microbiology Results
Micro:
02/06/24 13:07 Blood Culture - Preliminary
Blood/Venous Escherichia coli
Gram Stain - Preliminary
02/06/24 11:56 Urine Culture - Preliminary
Urine Escherichia coli
02/06/24 11:37 Blood Culture - Preliminary
Blood/Venous Positive culture in progress
Gram Stain - Preliminary
02/06/24 17:13 MRSA Screen - Pending
Nose
02/07/2024 Ultrasound abdomen complete/upper : The gallbladder demonstrates wall thickening with pericholecystic fluid however there is a negative sonographic Harman's sign which is more suggestive of sequelae of liver disease, heart failure or
ascites. No sonographic evidence of cholelithiasis. Bilateral pleural effusions with small volume perihepatic free fluid.
02/06/2024 CXR: Right-sided PICC line has its tip at the cavoatrial junction. The heart is normal size. There is an ectatic aorta. There is a mild increase in pulmonary vasculature. There is a small left pleural effusion. There is apical pleural
thickening. There is no focal consolidation. There is an old healed rib fracture on the right. There are mild degenerative changes in the thoracic spine.
02/06/2024 peripheral vascular ultrasound; RIGHT LOWER EXTREMITY: The right common femoral, femoral, popliteal, posterior tibial, and peroneal veins are patent without sonographic evidence for deep venous thrombosis. LEFT LOWER EXTREMITY: The left
common femoral, femoral, popliteal, posterior tibial, and peroneal veins are patent without sonographic evidence for deep venous thrombosis.
Assessment / Plan
#Sepsis likely secondary to UTI.
#Bacteremia secondary to Ecoli
#Elevated Procalcitonin level
#History of PICC line infection in 2022
#Anemia
#Thrombocytopenia
-Blood cultures x2 preliminary positive for Ecoli
-Urinalysis with pyuria, Urine culture positive for Ecoli
-Continue cefepime
-Blood culture today. Can draw from PICC.
-Monitor temp, WBC, procalcitonin
Conditions Present Prior to Admission
Systemic scleroderma
Anemia of Chronic Disease
Chronic LFT Elevation
Chronic Gastroparesis with TPN Dependence
--- NOTE | 2024-02-07 14:00 | PTCARENOTE ---
Pt's son brought in patient's label from her TPN. , Dr. Pan and Loretta Frank all made aware and placed on front of chart for reference if patient will be ordered TPN.
--- NOTE | 2024-02-07 15:30 | W.PN.HOSP.TC ---
Today's Communication/Plan
-
Assessment / Plan
Assessment / Plan
Physical Exam
NAD, resting comfortably in bed
Scleral anicteric
Moist mucous membranes
No JVD
CTA bilateral
Normal S1-S2 no murmurs
Soft nontender nondistended bowel sounds active
Right lower extremity with atypical erythema, not consistent with infectious pattern
No peripheral pitting edema
Moves extremities spontaneously
AAOx3
Assessment and Plan
Septic shock secondary to E. coli bacteremia, likely source has urine culture and blood cultures positive.
-She does have a PICC line that has been in for TPN. But site looks clean
-Keep MAP greater than 65
-Wean Levophed as tolerated
-Discontinue vancomycin
-Continue cefepime and likely de-escalate to Rocephin, await sensitivities
Right lower extremity erythema
-DVT study negative
-On cefepime, low clinical suspicion though that this is cellulitis
Gastroparesis
-On TPN for this however currently held due to bacteremia
-Likely able to be reinitiate in 24-48 hours
-GI following
-Outpatient follow-up with [facility] for venting gastrostomy and C-scope per GI
Anemia macrocytic, acute on chronic, concern for potential GI bleed.
-GI following
-Twice daily IV PPI, stop Protonix drip
-Transfuse if hemoglobin less than 7
-Currently hemoglobin stable
-Monitor for signs of bleeding
Hypothyroidism
-Continue levothyroxine
Anticipated Discharge: > 48 hours
Subjective/Interval History
-
Date of Service: February 07, 2024
Seen and examined. No new complaints. No acute overnight events.
Asking when she will be going home
Informed her that she is only on medications that will not allow her to go home such as Levophed. She is being worked up for a acute infection.
Objective Data
-
Labs:
Laboratory Results
02/07/24
05:51
WBC 5.9
Hgb 7.9 L
Hct 25.7 L
Plt Count 89 L
Sodium 142
Potassium 4.0
Chloride 110 H
Carbon Dioxide 22
BUN 41 H
Creatinine 1.1 H
Glucose 73
Calcium 7.7 L
Total Bilirubin 2.4 H
AST 59 H
ALT 29
Alkaline Phosphatase 296 H
Vital Signs:
Vital Signs
Temp Pulse Resp BP Pulse Ox
98.0 F 72 16 98/56 91
02/07/24 11:20 02/07/24 15:00 02/07/24 15:00 02/07/24 15:00 02/07/24 13:00
I&O
02/06/24 02/07/24 02/08/24
06:59 06:59 06:59
Intake Total 120 / 120
Output Total 500 / 500
Balance -500 / -500 120 / 120
--- NOTE | 2024-02-07 15:34 | CM ---
Patient with Hx Ostomy bag covering non-healing gastrostomy tube site. O2 2L. PICC in place. Levophed gtt d/c'ed per nurse. Receiving IV Abx. Clear liquids. Per nursing; ambulatory in halls.
Met with patient and son Santo;
the patient resides with her and son in a 2 story house with no CARMEN.
The patient was independent in ADLs and ambulation without using an assistive device.
The patient and son relay that patient has been placing ostomy bags over her gastrostomy tube site.
She has a supply of ostomy bags at home.
The patient has 2 friends who are caregivers for the ostomy bag changes and see her 1 hr in the am/1 hr in the pm every day.
DME - RW, ostomy supplies
Prior [facility] VN
Prior [facility]
Offered VN for nurse check at home and patient declined.
Plan home.
--- NOTE | 2024-02-07 21:05 | W.PN.UPDATE ---
Update Note
Progress Note Update
RN notified SCRAP CHARGER, family insisting to start TPN and fluids as she hasn't received since she has been admitted. Advised son of the reasons why TPN and maintenance fluid is not given. Son denies patient having CHF in the past or being on Lasix.
Addressed the medical history, Home medication list and current labs.
chest Xray noted with small pleural effusion.
PT BP soft at that time 83/50 HR 80, Levophed is on hold, NSS 250 cc bolus given once. BP 101/53 HR 73, which was also addressed to son.
patient resting in bed, not in any distress at present, Conversant.
labs noted will order D5 1/2 NS @ 40cc/hr
[2024-02-07] MEDS: NSS 250 IV (21:27)
[2024-02-07] MEDS: PROTONIX IV 40 MG IV (21:28)
[2024-02-07] MEDS: REMERON ODT 30 MG PO (21:28)
[2024-02-07] MEDS: NSS (PRESERVATIVE FREE) 10 ML IV (21:28)
[2024-02-08] VITALS (15 sets, daily range): BP systolic 94–132; BP diastolic 46–70; BMI 21.3
[2024-02-08 04:33] LABS: Hematocrit 25.9 % (37.0-47.0); Hemoglobin 7.9 g/dL (12.0-16.0); Mean Corp Hgb Conc. 30.5 g/dL (33.0-37.0); Mean Corpuscular Hgb 30.9 pg (27.0-31.0); Mean Corpuscular Volume 101.2 fL (81.0-99.0); Mean Platelet Volume 11.9 fL (7.4-10.4); Platelet Count 90 10^3/uL (130-400); Red Blood Cell Count 2.56 10^6/uL (4.20-5.40); Red Cell Dist. Width 21.3 % (11.5-14.5); White Blood Cell Count 3.8 10^3/uL (4.8-10.8)
--- NOTE | 2024-02-08 04:35 | PTCARENOTE ---
Patient with MAP below 65- underground production foreperson provider made aware and ordered 250 ml bolus. MAPs remained above 65 post bolus.
[2024-02-08 05:14] LABS: ALT (SGPT) 28 U/L (0-35); AST (SGOT) 55 U/L (14-36); Albumin 2.1 g/dl (3.5-5.0); Alkaline Phosphatase 261 U/L (38-126); Blood Urea Nitrogen 35 mg/dl (7-17); Calcium 7.4 mg/dl (8.4-10.2); Carbon Dioxide 18 mmol/L (22-30); Chloride 111 mmol/L (98-107); Estimated Creatinine Clearance 31 ml/min; Glucose 33 mg/dl (70-99); Sodium 140 mmol/L (135-145); Total Protein 5.1 g/dl (6.3-8.2); eGFR 53.06
[2024-02-08] MEDS: DEXTROSE 50% SYRINGE 12.5 GRAMS IV ×2 (05:27→12:44)
[2024-02-08 05:38] LABS: Glucose - Point of Care 29 mg/dl (70-99)
[2024-02-08] MEDS: D5/0.45%NACL 1000 IV (05:48)
[2024-02-08 05:58] LABS: Glucose - Point of Care 119 mg/dl (70-99)
--- NOTE | 2024-02-08 06:04 | PTCARENOTE ---
Blood sugar with AM labs 33- rechecked with accucheck and 29. yard caller provider made aware- hypoglycemia protocol followed. Given d50 and started on d5 NS at 40 ml/hr.
--- NOTE | 2024-02-08 07:30 | PTCARENOTE ---
Patient received from maintenance supervisor 2nd shift. Patient resting comfortably in bed. AAO, VSS. No complaints of pain at this time. Patients glucose for AM lab work was 33, accuchecks were done and started on D5 /2 NSS. Next checks are 0745 and 0945 and 0300.
Patient was venting gastrostomy. Patient is able to self cath. No tests scheduled. Call villa in reach.
[2024-02-08 07:59] LABS: Glucose - Point of Care 67 mg/dl (70-99)
--- NOTE | 2024-02-08 08:15 | PTCARENOTE ---
Patients AM accucheck was 67. Accuchecks started due to a low glucose lab reading of 33. Patient currently receiving D5 1/2NSS @40mL/hr. Hospitalist made aware and instructed to increase D5 1/2NSS to 60mL/hr and check accucheck Q1.
[2024-02-08] MEDS: PROTONIX IV 40 MG IV ×2 (08:19→21:01)
[2024-02-08] MEDS: NSS (PRESERVATIVE FREE) 10 ML IV ×2 (08:20→21:01)
[2024-02-08 09:05] LABS: Glucose - Point of Care 61 mg/dl (70-99)
--- NOTE | 2024-02-08 09:39 | W.PN.ID1 ---
Addendum entered and electronically signed by Sharon Lieberman MD 02/08/24 15:14:
I saw and evaluated the patient. I reviewed the resident�s note and agree with findings and plan as documented in the resident�s note.
Pt son upset pt missed 2 nights of TPN. BP low due to dehydration. Was hypoglycemic.
No urinary frequency today. Pt wishes to go home.
# E. coli bacteremia
- Suspect urinary source. Pt with urinary frequency.
- Repeat bcx x 1 in process.
- Will need outpatient IV abx as patient has poor GI absorption with oral meds.
-Transition cefepime to ceftriaxone 1g IV q24h through 02/20/24
- Home infusion sheet submitted to director of casework this am.
- Can resume TPN from ID standpoint.
Explained to son yesterday PM regarding no contraindication to resume TPN. However, unable to order TPN after 2PM and thus she missed TPN last night.
Original Note:
Date of Service
Date of Service: February 08, 2024
Today's Communication
d/c on IV Rocephin till 02/19.
Assessment / Plan
#Sepsis likely secondary to UTI.
#Bacteremia secondary to Ecoli
#Elevated Procalcitonin level
#History of PICC line infection in 2022
#Anemia
#Thrombocytopenia
-Blood cultures x2 preliminary positive for Ecoli
-Urinalysis with pyuria, Urine culture positive for Ecoli
-on Cefepime (D3)
-Okay to use PICC line.
-Can resume TPN
-Monitor temp, WBC, procalcitonin
-Will d/c home on IV Rocephin till 02/19
Conditions Present Prior to Admission
Systemic scleroderma
Anemia of Chronic Disease
Chronic LFT Elevation
Chronic Gastroparesis with TPN Dependence
Vital Signs / Physical Exam
Vital Signs
Vital Signs
Temp Pulse Resp BP Pulse Ox
97.5 F 65 12 105/49 98
02/08/24 08:05 02/08/24 06:00 02/08/24 06:00 02/08/24 06:00 02/08/24 04:00
Physical Exam
Constitutional: Acutely Ill
Cardiovascular: Regular Rate and S1/S2
Pulmonary: Clear
Gastrointestinal: Soft, Non Tender and Other (stomy bag)
Neurological: Awake, Alert, Oriented and AO x 3
Lines: PICC
Objective Data
Lab Data
Lab Results
02/08/24 04:01
02/08/24 04:01
Estimated Creat Clear 31 ml/min 02/08/24 04:01
Lactic Acid 0.9 mmol/L (0.7-2.0) 02/06/24 17:56
Total Bilirubin 2.0 mg/dl (0.2-1.3) H 02/08/24 04:01
AST 55 U/L (14-36) H 02/08/24 04:01
ALT 28 U/L (0-35) 02/08/24 04:01
Alkaline Phosphatase 261 U/L (38-126) H 02/08/24 04:01
Most recent labs reviewed.
Micro Results:
02/06/24 11:56 Urine Culture - Final
Urine Escherichia coli
02/06/24 17:13 MRSA Screen - Final
Nose No Methicillin Resistant Staphylococcus aureus isolated.
02/07/24 16:35 Blood Culture - Pending
Blood/Venous
02/06/24 13:07 Blood Culture - Preliminary
Blood/Venous Escherichia coli
Gram Stain - Preliminary
02/06/24 11:37 Blood Culture - Preliminary
Blood/Venous Positive culture in progress
Gram Stain - Preliminary
02/07/2024 Ultrasound abdomen complete/upper : The gallbladder demonstrates wall thickening with pericholecystic fluid however there is a negative sonographic Harman's sign which is more suggestive of sequelae of liver disease, heart failure or
ascites. No sonographic evidence of cholelithiasis. Bilateral pleural effusions with small volume perihepatic free fluid.
02/06/2024 CXR: Right-sided PICC line has its tip at the cavoatrial junction. The heart is normal size. There is an ectatic aorta. There is a mild increase in pulmonary vasculature. There is a small left pleural effusion. There is apical pleural
thickening. There is no focal consolidation. There is an old healed rib fracture on the right. There are mild degenerative changes in the thoracic spine.
02/06/2024 peripheral vascular ultrasound; RIGHT LOWER EXTREMITY: The right common femoral, femoral, popliteal, posterior tibial, and peroneal veins are patent without sonographic evidence for deep venous thrombosis. LEFT LOWER EXTREMITY: The left
common femoral, femoral, popliteal, posterior tibial, and peroneal veins are patent without sonographic evidence for deep venous thrombosis.
[2024-02-08 10:16] LABS: Glucose - Point of Care 61 mg/dl (70-99)
--- NOTE | 2024-02-08 10:27 | CM ---
Addendum entered by Diana Hutchins 02/08/24 12:30:
Plan: Discharge to home today with [facility] services
Patient reported that family will provide transport home today
Addendum entered by Diana Hutchins 02/08/24 11:11:
Met with patient; she reported that she is currently getting home infusion of TPN with [facility]
Cancelled referral with [facility]; Elis sent/acknowledged text
Contacted [facility]; spoke with pharmacistJimmy (# [phone]); referral accepted; faxed antibiotic script t # [phone]
Original Note:
CM received order for [facility]; Spoke w/ Elis, Yinka Chaudhary via phone; faxed script, clinicals and demographics
CM Spoke with [facility] liaison, Maricruz Menchaca; faxed script and face sheet to her; [facility] Health [facility]
[2024-02-08] MEDS: ROCEPHIN 1000 MG IV (11:23)
[2024-02-08] MEDS: D10W 1000 IV (11:23)
[2024-02-08] MEDS: STERILE WATER FOR INJECTION 10 ML IV (11:23)
[2024-02-08 12:16] LABS: Glucose - Point of Care 66 mg/dl (70-99)
--- NOTE | 2024-02-08 12:16 | WOUNDNOTE ---
WO RN note: Patient admitted with bacteremia, HOTN, GI bleed. Patient lives with her and she stated she will have VN when discharged. Son present during visit.
See H&P for complete history.
PMH: systemic scleroderma, severe gastroparesis, TPN/PICC, she follows [facility], vented G tube which was removed couple of months ago, SBO.
Wound Location and type/assessment: Patient admitted with: healing small stage 2 coccyx pressure injury. Old gastrostomy site/stoma draining liquid light brown liquid, skin macerated locally. She wears knee high Tubigrip during the day.
Appetite: on IDDSI5-minced low residue diet. TPN.
Pressure redistribution devices in place: Centrella Max air bed. Air chair cushion.
Plan: Old g tube site pouch changed using Convatec 1 piece pouch # [id number]. Patient uses Herbert 1 piece pouch at home. Her changes her pouch at home. Extra pouch left in room. Discussed with BLAKE Moncada. Band-Aid changed on patient's L great
toe for protection (used [id number] Optifoam gentle lite to replace). She stated her friend removed her R great ingrown toenail in the past. No drainage, no erythema. Instructed patient she should have a body press operator treat an ingrown toenail.
Instructed patient to take air chair cushion when discharged.
Care plan to be updated, will sign off, call if needed. Nursing can assist with future pouch changes.
--- NOTE | 2024-02-08 13:24 | W.PN.HOSP.TC ---
Today's Communication/Plan
-
dc home if bg remains stable >2hours. give 1amp d50 prior to dc
More than 30 minutes spent in discharge including
Final examination of the patient
Summarizing hospital stay
Instructions for continuing care to all relevant caregivers
Preparation of discharge records, prescriptions, and referral forms
Total time spent (in minutes): 36m
Assessment / Plan
Assessment / Plan
Physical Exam
NAD, resting comfortably in bed
Scleral anicteric
Moist mucous membranes
No JVD
CTA bilateral
Normal S1-S2 no murmurs
Soft nontender nondistended bowel sounds active
Right lower extremity with atypical erythema, not consistent with infectious pattern
No peripheral pitting edema
Moves extremities spontaneously
AAOx3
Assessment and Plan
Septic shock secondary to E. coli bacteremia, likely source has urine culture and blood cultures positive.
-She does have a PICC line that has been in for TPN. But site looks clean, ID did not recommend to remove PICC line at this time
-Keep MAP greater than 65
-Levophed off
-Discontinue vancomycin
-Now on Rocephin for which will be continued until 02/20/2024 via PICC line
Right lower extremity erythema
-DVT study negative
-On Rocephin
Gastroparesis
-Can resume TPN tonight
-GI following
-Outpatient follow-up with [facility] for venting gastrostomy and C-scope per GI
Anemia macrocytic, acute on chronic, concern for potential GI bleed.
-GI following
-Twice daily IV PPI, stop Protonix drip
-Transfuse if hemoglobin less than 7
-Currently hemoglobin stable
-Monitor for signs of bleeding
Hypothyroidism
-Continue levothyroxine
Hyperglycemia
-Related to being off of TPN and as she has poor enteral absorption
-Provide dextrose containing fluids until able to resume TPN
-Plan is to discharge home prior to discharging home will receive an amp of D50.
Son aware to start mom on TPN as soon as she gets home
Spoke with infusion pharmacist Santo from [place]
-He confirms they have multiple bags of TPN at home
-[facility]
Anticipated Discharge: Today
Subjective/Interval History
-
Date of Service: February 08, 2024
Seen and examined. Hypoglycemic overnight. Requiring amps of dextrose and started on dextrose containing fluids. Likely related to being off of TPN.
Objective Data
-
Labs:
Laboratory Results
02/08/24
04:01
WBC 3.8 L
Hgb 7.9 L
Hct 25.9 L
Plt Count 90 L
Sodium 140
Potassium 4.0
Chloride 111 H
Carbon Dioxide 18 L
BUN 35 H
Creatinine 1.1 H
Glucose 33 L*
Calcium 7.4 L
Total Bilirubin 2.0 H
AST 55 H
ALT 28
Alkaline Phosphatase 261 H
Vital Signs:
Vital Signs
Temp Pulse Resp BP Pulse Ox
97.2 F 65 12 105/49 98
02/08/24 11:30 02/08/24 06:00 02/08/24 06:00 02/08/24 06:00 02/08/24 04:00
I&O
02/07/24 02/08/24 02/09/24
06:59 06:59 06:59
Intake Total 370 / 370
Output Total 500 / 500 200 / 200 500 / 500
Balance -500 / -500 170 / 170 -500 / -500
[2024-02-08 13:37] LABS: Glucose - Point of Care 101 mg/dl (70-99)
[2024-02-08 14:31] LABS: Glucose - Point of Care 109 mg/dl (70-99)
--- NOTE | 2024-02-08 14:49 | W.PN.UPDATE ---
Update Note
Progress Note Update
I spoke with son. Updated that TPN has been ordered. Will start at 9 PM. He states that he would like his mom to take him home. Because he knows that if she stays in the hospital for additional night she is going to be very upset. She is going
to do better at home and is scheduled to obtain/receive her TPN at 9 PM however this could be given to her earlier if needed. I informed him that ideally I would like PCR of the dextrose drip for at least couple of hours to make sure she is able to
maintain her blood sugars on her own. If she is and if it stays greater than 70-110 then we can give her 1 amp of D50 prior to discharge and if stays greater than 110 then will discharge home without the amp of D50. If less than 70 then I would
keep her and start TPN overnight to make sure that her blood sugars are stable.
I informed him that I am more concerned about low blood sugar than high blood sugar he verbalized understanding. I informed him that I cannot predict how fast the patient can become hypoglycemic as each patient is different. He appreciated this
and put however stated that he still would like to bring her home tonight if possible.
Nonbillable note
--- NOTE | 2024-02-08 14:50 | PTCARENOTE ---
Hospital spoke with son. Plan for discharge is to stop D10W and check accuchecks every hour x2. If >110, patient can be discharged. 70-110 patient will received a 1 amp of D50% and then be discharged. If less than 70, patient will likely remain
here overnight to have TPN initiated here. Patient has TPN at her house and will resume normal scheduling but was told that it could be started sooner.
Per hospitalist, patients son would like to have her home this evening.
Discussed plan with patient and patient appears to be ok with potential outcomes. Call villa in reach.
[2024-02-08 15:42] LABS: Glucose - Point of Care 84 mg/dl (70-99)
[2024-02-08 16:42] LABS: Glucose - Point of Care 58 mg/dl (70-99)
[2024-02-08] MEDS: DEXTROSE 50% SYRINGE 25 GRAMS IV (17:47)
[2024-02-08 18:44] LABS: Glucose - Point of Care 200 mg/dl (70-99)
[2024-02-08 19:52] LABS: Glucose - Point of Care 143 mg/dl (70-99)
[2024-02-08] MEDS: REMERON ODT 30 MG PO (21:01)
[2024-02-08] MEDS: Parenteral Nutrition, Central 1490 IV (21:01)
[2024-02-08 21:08] LABS: Glucose - Point of Care 103 mg/dl (70-99)
[2024-02-08 22:30] LABS: Glucose - Point of Care 128 mg/dl (70-99)
[2024-02-09] VITALS (8 sets, daily range): BP systolic 91–121; BP diastolic 48–68; BMI 21.3
[2024-02-09 01:13] LABS: Glucose - Point of Care 223 mg/dl (70-99)
[2024-02-09] MEDS: DULCOLAX 5 MG PO (04:31)
[2024-02-09 05:12] LABS: ALT (SGPT) 22 U/L (0-35); AST (SGOT) 42 U/L (14-36); Alkaline Phosphatase 212 U/L (38-126); Blood Urea Nitrogen 34 mg/dl (7-17); Calcium 7.8 mg/dl (8.4-10.2); Carbon Dioxide 21 mmol/L (22-30); Chloride 106 mmol/L (98-107); Estimated Creatinine Clearance 31 ml/min; Glucose 188 mg/dl (70-99); Magnesium 1.9 mg/dl (1.6-2.3); Phosphorus 2.1 mg/dl (2.5-4.5); Potassium 4.5 mmol/L (3.5-5.1); Sodium 137 mmol/L (135-145); Total Bilirubin 1.3 mg/dl (0.2-1.3); Total Protein 4.9 g/dl (6.3-8.2); eGFR 53.06
[2024-02-09 06:15] LABS: Triglycerides 633 mg/dl (10-149)
[2024-02-09 06:52] LABS: Glucose - Point of Care 243 mg/dl (70-99)
--- NOTE | 2024-02-09 07:13 | PTCARENOTE ---
No acute events overnight. Cyclic TPN running at full rate. No episodes of hypoglycemia. Son was at the bedside asking for stool softener for patient. scallop binder provider made aware and ordered 1x dose dulcolax.
--- NOTE | 2024-02-09 07:57 | PTCARENOTE ---
Patient received from curriculum and assessment director. Patient resting comfortably in bed. AAO, VSS. No complaints of pain at this time. Patient is on cyclic TPN to be reduced at 0800 and off at 0900. Accucheck to be check 1 hr after stopping. Patient with venting
gastrostomy. Patient is able to self cath. No tests scheduled. Possible D/C if blood glucose is stable. Call villa in reach.
[2024-02-09 08:10] LABS: Glucose - Point of Care 262 mg/dl (70-99)
[2024-02-09] MEDS: PROTONIX IV 40 MG IV (08:13)
[2024-02-09] MEDS: NSS (PRESERVATIVE FREE) 10 ML IV (08:13)
[2024-02-09] MEDS: ZOFRAN 4 MG IV (08:28)
[2024-02-09 09:16] LABS: Glucose - Point of Care 241 mg/dl (70-99)
--- NOTE | 2024-02-09 09:39 | W.PN.ID1 ---
Addendum entered and electronically signed by Jose Manuel Worthington DO 02/09/24 15:06:
I saw and evaluated the patient. I reviewed the resident�s note and agree with findings and plan as documented in the resident�s note.
Feels well. Finishing up current bag of TPN then for D/C to home.
Continue ceftriaxone.
Follow temps, especially following completion of abx.
No need to follow procal levels.
Original Note:
Date of Service
Date of Service: February 09, 2024
Today's Communication
ceftriaxone 1g IV q24h through 02/20/24
Assessment / Plan
#Sepsis likely secondary to UTI.
#Bacteremia secondary to Ecoli
#Elevated Procalcitonin level
#History of PICC line infection in 2022
#Anemia
#Thrombocytopenia
-Repeat Blood cultures x1 negative
-Transitioned from cefepime to ceftriaxone 1g IV q24h through 02/20/24
-Okay to use PICC line.
-Can resume TPN
-Monitor temp, WBC, procalcitonin
Conditions Present Prior to Admission
Systemic scleroderma
Anemia of Chronic Disease
Chronic LFT Elevation
Chronic Gastroparesis with TPN Dependence
Subjective / Review of Systems
Review of Systems: No Fever and No Chills
Vital Signs / Physical Exam
Vital Signs
Vital Signs
Temp Pulse Resp BP Pulse Ox
98.3 F 77 16 93/50 91
02/09/24 04:10 02/09/24 06:00 02/09/24 06:00 02/09/24 06:00 02/09/24 04:00
Physical Exam
Constitutional: No Acute Distress
Cardiovascular: Regular Rate and S1/S2
Gastrointestinal: Soft, Non Tender and Non Distended
Extremities: Negative Edema
Neurological: AO x 3
Objective Data
Lab Data
Lab Results
02/08/24 04:01
02/09/24 04:23
Estimated Creat Clear 31 ml/min 02/09/24 04:23
Lactic Acid 0.9 mmol/L (0.7-2.0) 02/06/24 17:56
Total Bilirubin 1.3 mg/dl (0.2-1.3) 02/09/24 04:23
AST 42 U/L (14-36) H 02/09/24 04:23
ALT 22 U/L (0-35) 02/09/24 04:23
Alkaline Phosphatase 212 U/L (38-126) H 02/09/24 04:23
Most recent labs reviewed.
Micro Results:
02/06/24 11:37 Blood Culture - Preliminary
Blood/Venous Escherichia coli
Gram Stain - Final
02/06/24 13:07 Blood Culture - Final
Blood/Venous Escherichia coli
Gram Stain - Final
02/07/24 16:35 Blood Culture - Preliminary
Blood/Venous No Growth in 24 hours- Final report to follow
02/06/24 11:56 Urine Culture - Final
Urine Escherichia coli
02/06/24 17:13 MRSA Screen - Final
Nose No Methicillin Resistant Staphylococcus aureus isolated.
02/07/2024 Ultrasound abdomen complete/upper : The gallbladder demonstrates wall thickening with pericholecystic fluid however there is a negative sonographic Harman's sign which is more suggestive of sequelae of liver disease, heart failure or
ascites. No sonographic evidence of cholelithiasis. Bilateral pleural effusions with small volume perihepatic free fluid.
02/06/2024 CXR: Right-sided PICC line has its tip at the cavoatrial junction. The heart is normal size. There is an ectatic aorta. There is a mild increase in pulmonary vasculature. There is a small left pleural effusion. There is apical pleural
thickening. There is no focal consolidation. There is an old healed rib fracture on the right. There are mild degenerative changes in the thoracic spine.
02/06/2024 peripheral vascular ultrasound; RIGHT LOWER EXTREMITY: The right common femoral, femoral, popliteal, posterior tibial, and peroneal veins are patent without sonographic evidence for deep venous thrombosis. LEFT LOWER EXTREMITY: The left
common femoral, femoral, popliteal, posterior tibial, and peroneal veins are patent without sonographic evidence for deep venous thrombosis.
[2024-02-09 10:20] LABS: Glucose - Point of Care 153 mg/dl (70-99)
[2024-02-09 11:20] LABS: Glucose - Point of Care 156 mg/dl (70-99)
--- NOTE | 2024-02-09 12:12 | CM ---
Patient with Hx Ostomy bag covering non-healing gastrostomy tube site. Room air. Receiving TPN, IV ceftriaxone.
Script resent to ELAINE from Dr Lieberman: Ceftriaxone 1G IV Q24h, end date 02/20/24 via PICC.
Spoke with Jimmy, pharmacist [facility] , fax [phone]); informed him of d/c today. He confirms IV Abx & supplies were delivered to patient's home yesterday, and TPN will be delivered again tomorrow. He states that
patient's PICC line was placed last Feb 2023- he was made aware the patient will go home with the same PICC in place per MD. Their infusion nurse will be out to see the patient on Sunday 02/11.
Message with Geronimo Sanchez & Elin; per Dr Sanchez the patient does not need a new PICC line before d/c today.
Met with patient who was preparing for d/c, and says she feels ready to go home today. IMM completed. Offered VN again for nurse for assist with ostomy site care and she declined, saying she is managing that well on her own. Patient was made
aware that ELAINE spoke with pharmacist at [facility] who relayed that IV Abx & supplies were delivered to her home yesterday and TPN will be delivered again tomorrow, and that [facility] Nurse will see her on Monday. She is aware
that her PICC line does not need to be changed today per MD. Her son or will provide a ride home today. Offered to call /son and patient declined saying she already spoke with them about her d/c.
Spoke with Maricruz Arenas; cancelled referral for VN made by ELAINE yesterday.
Plan home today with resumption [facility] for IV Ceftriaxone & TPN.
[2024-02-09 12:19] LABS: Glucose - Point of Care 149 mg/dl (70-99)
[2024-02-09] MEDS: SODIUM PHOSPHATE 255 MEQ IV (12:52)
[2024-02-09] MEDS: STERILE WATER FOR INJECTION 10 ML IV (12:52)
[2024-02-09] MEDS: ROCEPHIN 1000 MG IV (12:52)
--- NOTE | 2024-02-09 14:16 | W.PN.HOSP.TC ---
Today's Communication/Plan
-
dc home
Assessment / Plan
Assessment / Plan
Physical Exam
NAD, resting comfortably in bed
Scleral anicteric
Moist mucous membranes
No JVD
CTA bilateral
Normal S1-S2 no murmurs
Soft nontender nondistended bowel sounds active
Right lower extremity with atypical erythema, not consistent with infectious pattern
No peripheral pitting edema
Moves extremities spontaneously
AAOx3
Assessment and Plan
Septic shock secondary to E. coli bacteremia, likely source has urine culture and blood cultures positive.
-She does have a PICC line that has been in for TPN. But site looks clean, ID did not recommend to remove PICC line at this time
-Keep MAP greater than 65
-Levophed off
-Discontinue vancomycin
-Now on Rocephin for which will be continued until 02/20/2024 via PICC line
Right lower extremity erythema
-DVT study negative
-On Rocephin
Gastroparesis
-Can resume TPN tonight
-GI following
-Outpatient follow-up with Sam for venting gastrostomy and C-scope per GI
Anemia macrocytic, acute on chronic, concern for potential GI bleed.
-GI following
-Twice daily IV PPI, stop Protonix drip
-Transfuse if hemoglobin less than 7
-Currently hemoglobin stable
-Monitor for signs of bleeding
Hypothyroidism
-Continue levothyroxine
Hypoglycemia
-Related to being off of TPN and as she has poor enteral absorption
-Provide dextrose containing fluids until able to resume TPN
-Plan is to discharge home prior to discharging home will receive an amp of D50.
Son aware to start mom on TPN as soon as she gets home
Hypophosphatemia
-Replete as needed
Spoke with infusion pharmacist Santo from [place]
-He confirms they have multiple bags of TPN at home
-Rocephin will be sent to the [facility] and delivered today
More than 30 minutes spent in discharge including
Final examination of the patient
Summarizing hospital stay
Instructions for continuing care to all relevant caregivers
Preparation of discharge records, prescriptions, and referral forms
Total time spent (in minutes): 36mins
Anticipated Discharge: Today
Subjective/Interval History
-
Date of Service: February 09, 2024
Seen and examined. No new complaints. No acute overnight events.
Received tPA and overnight. Tolerated well. Sugars in the 250s.
Discussed with bedside nurse around 10:10 AM sugar was 150. Recommended to repeat. If stabl x 2 checks then can be discharged home
Objective Data
-
Labs:
Laboratory Results
02/09/24
04:23
Sodium 137
Potassium 4.5
Chloride 106
Carbon Dioxide 21 L
BUN 34 H
Creatinine 1.1 H
Glucose 188 H
Calcium 7.8 L
Total Bilirubin 1.3
AST 42 H
ALT 22
Alkaline Phosphatase 212 H
Vital Signs:
Vital Signs
Temp Pulse Resp BP Pulse Ox
98.2 F 80 16 110/65 95
02/09/24 11:45 02/09/24 12:00 02/09/24 12:00 02/09/24 12:00 02/09/24 11:30
I&O
02/08/24 02/09/24 02/10/24
06:59 06:59 06:59
Intake Total 370 / 370 850 / 850 1400 / 1400
Output Total 200 / 200 1400 / 1400
Balance 170 / 170 -550 / -550 1400 / 1400
--- NOTE | 2024-02-09 14:26 | W.DCSUMMARY ---
Discharge Summary
Discharge Data
Date of Admission: 02/06/24
Date of Discharge: 02/09/24
-
Pending Results: No
Hospital Course
73 female history of severe systemic scleroderma, gastroparesis, requiring TPN and venting gastrostomy who presents with leg pains, fever/vomiting. COVID flu negative. Urine analysis concerning for UTI, urine and blood cultures both demonstrated
E. coli sensitive to Rocephin. As she is unable to tolerate p.o. intake/due to poor absorption will remain on IV Rocephin until 02/20/2024 per infectious diseases recommendations. She does have a PICC line that was assessed deemed okay to continue
use as this is unlikely to source of infection and most likely source of infection is from the system as we are treating her for UTI.
Hospitalization further complicated by hypoglycemia as she was off of TPN for 48 hours. She is off of TPN as we were attempting to rule out source of infection/bacteremia. Once deemed likely secondary to UTI AND TPN was ordered. Once resumed on
TPN and hypoglycemia resolved.
did receive phosphorus repletion prior to discharge
Discharge Plan
-
Patient Disposition: Home with Home Care
Discharge Diagnosis/Procedures: E. coli bacteremia secondary to UTI
Condition: Good
Diet: As tolerated and Other diet
Additional Diets: TPN
Activity: As tolerated
Activity Restrictions/Additional Instructions:
Wound Care Instructions
Coccyx healing small stage 2 ulcer-clean with saline or soap and water, silicone border foam, change every 3 days and as needed for leakage. If foam ineffective, apply zinc barrier ointment BID instead.
Pressure redistributing chair cushion (i.e. Air chair cushion).
Elevate heels off bed with pillow/s.
Routine abdominal pouch changes.
Follow up with your GI physician.
Follow up with wound home care specialist or wound care center as needed .
Referrals:
Toyin Goldstein MD [Family Provider] -
Prescriptions:
New
ceftriaxone 1 gram Recon Soln
1,000 mg IV Q24H 13 Days
Continued
furosemide 10 mg/mL solution
40 mg IV DAILYPRN PRN (Reason: edema)
mirtazapine 30 mg Tablet,Disintegrating
30 mg PO HS
sucralfate 100 mg/mL Suspension
10 ml PO QID
pantoprazole 40 mg recon soln
40 mg IV BID
Patient Comments:
09/03/2023, via picc line.
cyanocobalamin (vitamin B-12) 1,000 mcg/mL Solution
1,000 mcg IM QMONTH
estradiol [Estrace] 0.01 % (0.1 mg/gram) Cream
1 appful VAGINAL SUWE
sildenafil (pulm.hypertension) 20 mg Tablet
60 mg PO BID
Prolia 60 mg/mL Syringe
60 mg SC [id number]
Thyquidity 20 mcg/mL Solution
560 mcg PO DAILY@0700
cholecalciferol (vitamin D3) [Vitamin D3] 25 mcg (1,000 unit) Tablet
25 mcg PO DAILY
Blink Tears 0.25 % Drops
1 drp OPHTHALMIC (EYE) DAILYPRN PRN (Reason: dry eyes)
Rx Instructions:
both eyes
amlodipine 2.5 mg Tablet
2.5 mg PO DAILY
lorazepam 0.5 mg Tablet
0.5 mg PO HSPRN PRN (Reason: sleep)
hydroxyzine HCl 10 mg Tablet
10 mg PO TIDPRN PRN (Reason: itch)
Discharge Orders:
Discharge Patient (As Directed); Ordered 02/09/24
Ordered By: Kelby Sanchez
Discharge Date and Time
Print Language: UZBEK
[2024-02-09 16:16] LABS: Glucose - Point of Care 124 mg/dl (70-99)
--- NOTE | 2024-02-09 17:27 | PTCARENOTE ---
Patient discharged home with picking her up. Discharge instructions reviewed and all questions answered. Patient left with all known belongings. Patient taken to main entrance via wheel chair.
== END 2024-02-09 17:21 | disposition home health service (06) | DRG 871 ==
LOC: IMU 14:28
PROVIDERS: Nurse Practitioner Adult Health; Physician Assistant; Physician Assistant Medical; ADMITTING PHYSICIAN Hospitalist; ATTENDING PHYSICIAN Hospitalist; CONSULT PHYSICIAN Internal Medicine Gastroenterology; EMERGENCY PHYSICIAN Emergency Medicine; FAMILY PHYSICIAN Family Medicine; OTHER PHYSICIAN Internal Medicine Infectious Disease
PROC: 3E0436Z Introduction of Nutritional Substance into Central Vein, Percutaneous Approach (ICD-10-PCS; 2024-02-08)
DX: A41.51 Sepsis due to Escherichia coli [E. coli] (principal); K21.01 Gastro-esophageal reflux disease with esophagitis, with bleeding; R65.21 Severe sepsis with septic shock; I50.32 Chronic diastolic (congestive) heart failure; I13.0 Hypertensive heart and chronic kidney disease with heart failure and stage 1 through stage 4 chronic kidney disease, or unspecified chronic kidney disease; D62 Acute posthemorrhagic anemia; K56.609 Unspecified intestinal obstruction, unspecified as to partial versus complete obstruction; N39.0 Urinary tract infection, site not specified; J90 Pleural effusion, not elsewhere classified; M34.89 Other systemic sclerosis; E89.0 Postprocedural hypothyroidism; K58.9 Irritable bowel syndrome, unspecified; M79.604 Pain in right leg; M79.605 Pain in left leg; M47.814 Spondylosis without myelopathy or radiculopathy, thoracic region; K31.84 Gastroparesis; I27.20 Pulmonary hypertension, unspecified; N18.30 Chronic kidney disease, stage 3 unspecified; D69.6 Thrombocytopenia, unspecified; K44.9 Diaphragmatic hernia without obstruction or gangrene; D53.9 Nutritional anemia, unspecified; E83.39 Other disorders of phosphorus metabolism; E16.2 Hypoglycemia, unspecified; D63.1 Anemia in chronic kidney disease; F32.A Depression, unspecified; F41.9 Anxiety disorder, unspecified; M81.0 Age-related osteoporosis without current pathological fracture; Z96.643 Presence of artificial hip joint, bilateral; Z88.0 Allergy status to penicillin; Z88.1 Allergy status to other antibiotic agents; Z79.890 Hormone replacement therapy
CPT/HCPCS: 71046; 73552; 76700; 80053; 80202; 81003; 81015; 82550; 82607; 82728; 82746; 82962; 83540; 83550; 83605; 83735; 83880; 84100; 84145; 84478; 84484; 85014; 85018; 85025; 85027; 86850; 86900; 86901; 87040; 87070; 87077; 87086; 87149; 87186; 87205; 93005; 93970; 96361; 96375; 99285

== ENCOUNTER → 2024-02-19 15:21 | Outpatient (REF) | payer MEDICARE, OTHER, SELFPAY ==
[2024-02-19 14:32] LABS: % Basophils 0.4 % (0-2); % Eosinophils 0.6 % (0-6); % Immature Granulocytes 0.6 % (0-0.5); % Lymphocytes 10.5 % (20.5-51.1); % Monocytes 9.4 % (1.7-9.3); % Neutrophils 78.5 % (42.2-75.2); Absolute Lymphocytes 0.7 10^3/uL (1.2-3.4); Absolute Monocytes 0.7 10^3/uL (0.1-0.6); Absolute Neutrophils 5.5 10^3/uL (1.4-6.5); Hematocrit 22.8 % (37.0-47.0); Hemoglobin 6.8 g/dL (12.0-16.0); Mean Corp Hgb Conc. 29.8 g/dL (33.0-37.0); Mean Corpuscular Hgb 30.5 pg (27.0-31.0); Mean Corpuscular Volume 102.2 fL (81.0-99.0); Mean Platelet Volume 12.2 fL (7.4-10.4); Nucleated Red Blood Cells % 0 %; Platelet Count 166 10^3/uL (130-400); Red Blood Cell Count 2.23 10^6/uL (4.20-5.40); Red Cell Dist. Width 20.2 % (11.5-14.5)
== END ==
LOC: OIDL 15:21
PROVIDERS: ATTENDING PHYSICIAN Nurse Practitioner Acute Care
DX: D47.2 Monoclonal gammopathy (principal)
CPT/HCPCS: 85025; 86850; 86860; 86880; 86900; 86901

== ENCOUNTER → 2024-02-22 13:25 | Outpatient (REF) | payer MEDICARE, OTHER, SELFPAY | LOC: OIDL 13:25 | PROVIDERS: ATTENDING PHYSICIAN Internal Medicine Hematology & Oncology | DX: D47.2 Monoclonal gammopathy (principal) | CPT/HCPCS: 36415; 86850; 86900; 86901 ==

== ENCOUNTER 2024-02-23 11:27 | Outpatient (RCR) | payer MEDICARE, OTHER, SELFPAY ==
[2024-02-23 11:35] VITALS: BP 82/56
[2024-02-23 11:53] VITALS: BP 82/56
[2024-02-23 12:14] VITALS: BP 99/55
[2024-02-23 14:11] VITALS: BP 90/64
== END 2024-03-19 23:59 | disposition home or self-care (01) ==
LOC: OID 11:27
PROVIDERS: ATTENDING PHYSICIAN Internal Medicine Hematology & Oncology; FAMILY PHYSICIAN Family Medicine
DX: D50.0 Iron deficiency anemia secondary to blood loss (chronic) (principal); D47.2 Monoclonal gammopathy; R53.83 Other fatigue
CPT/HCPCS: 36430; 86850; 86900; 86901; 86920; 86922; P9016

== ENCOUNTER 2024-03-25 14:51 | Emergency (ER) | payer MEDICARE, OTHER, SELFPAY ==
--- NOTE | 2024-03-25 15:13 | ED.GENMED ---
ED Provider Triage
<El Moore Jr., PA-C - Last Filed: 03/25/24 15:13>
-
Patient seen by provider in Triage?: Seen in Triage
Attestation: A medical screening examination has been initiated by a qualified medical provider. Based on the assessment performed at this time, it has been determined that an emergent medical condition may exist and the patient has been informed
that further medical evaluation and possible additional diagnostic testing may be needed.
HPI: Patient here yesterday for PEG tube replacement. Current tube is causing irritation and discomfort to the area. Prompting return visit today. Patient need further assessment and discussion.
GENERAL: Alert , in no apparent distress
EYE: No visual abnormalities.
NECK: Trachea midline
ENT: No visible abnormalities.
LUNGS: No acute respiratory distress
NEUROLOGICAL: Alert and oriented
SKIN: Skin intact. No visible changes.
MUSCULOSKELETAL: Moving extremities normally
PSYCH: Normal and appropriate interaction.
This is a medical evaluation conducted in person to initiate diagnostic evaluation and provide initial therapeutics. Please see further documentation by the treating clinician.
History of Present Illness
<El Moore Jr., PA-C - Last Filed: 03/25/24 15:13>
General
Chief Complaint: Catheter/Tube Problem
Time Seen by Provider: 03/25/24 19:35
<BETHANY Duarte - Last Filed: 03/25/24 22:54>
General
Source: patient
Exam Limitations: none
Nursing documentation reviewed up to this point in time: agreed with
History of Present Illness
History of Present Illness:
Patient is a 73-year-old female with history of systemic scleroderma gastroparesis requiring TPN and venting gastrostomy tube presents to the ER for evaluation. Patient was here yesterday had her G-tube replaced but complains of irritation and
increased drainage. She reports normally she has a bag over the stoma just for venting purposes but Sam GUARDADO recently put it in because they were doing an endoscopy. Prior to that she had not had a G-tube placed for several months. She was
very comfortable with this. It is only used for venting. She is requesting that this to be removed at [facility] is able to do it tomorrow but because it causes her discomfort and increased drainage she does not want to wait.
Past History
<El Moore Jr., PA-C - Last Filed: 03/25/24 15:13>
Past History
ED Past Medical History: Hypothyroidism, Other (Raynaud and scleroderma, Ascities, SBO, Spontanious Bacterial peritonitis, UTI, Fracture Femur, Chronic Nausea), Other (Uterine and rectal prolapse) and Other (Irritable bowel, takes Trulance)
ED Past Surgical History: Bowel resection, Brain (subdural hematoma), Gynecological (Hysterectomy), Orthopedic and Other (Hernia repair, thyroidectomy, vaginal prolapse, rectal prolapse)
Social History
Tobacco: Non-smoker
Alcohol: None
Drug: None
Personal:
Living: with family
Employment: Retired
Family History
Family History: Other (Noncontributory)
Review of Systems
<BETHANY Duarte - Last Filed: 03/25/24 22:54>
Review of Systems
Allergies reviewed?: Yes
All Other Systems: ROS reviewed and negative except as documented in HPI and ROS
Constitutional: Reports no symptoms; Denies fever
Respiratory: Reports no symptoms
Cardiac: Reports no symptoms
ABD/GI: Reports other (+ discomfort from g tube site with increased irritation ); Denies nausea, vomiting or diarrhea
: Reports no symptoms
Musculoskeletal: Reports no symptoms
Skin: Reports no symptoms
Neurological: Reports no symptoms
Psychiatric: Reports no symptoms
Phy Exam
<BETHANY Duarte - Last Filed: 03/25/24 22:54>
General Physical Exam
General Presentation: no apparent distress
General age: appears stated age
General Skin: warm and dry
General Habitus: normal
General Mental: alert
Gastrointestinal Exam
Gastrointestinal Exam: soft and other (g tube in place however + gastric contents (brown in color ) leaking around tube and in collection bag )
Neurological Exam
Neurological Exam: alert and oriented x3
Musculoskeletal Exam
Musculoskeletal Exam: full ROM
Skin Exam
Skin Exam: normal color and warm/dry
Psychiatric Exam
Psychiatric Exam: normal mood/affect
Course
<El Moore Jr., PA-C - Last Filed: 03/25/24 15:13>
Vital Signs
Initial and Last Documented VS:
Initial Vital Signs
Temp Pulse Resp BP Pulse Ox
97.4 F 88 16 111/56 100
03/25/24 15:14 03/25/24 15:14 03/25/24 15:14 03/25/24 15:14 03/25/24 15:14
Last Documented Vital Signs
Temp Pulse Resp BP Pulse Ox
97.4 F 83 18 110/61 99
03/25/24 15:14 03/25/24 19:25 03/25/24 19:25 03/25/24 19:25 03/25/24 19:25
<BETHANY Duarte - Last Filed: 03/25/24 22:54>
Vital Signs
Initial and Last Documented VS:
Initial Vital Signs
Temp Pulse Resp BP Pulse Ox
97.4 F 88 16 111/56 100
03/25/24 15:14 03/25/24 15:14 03/25/24 15:14 03/25/24 15:14 03/25/24 15:14
Last Documented Vital Signs
Temp Pulse Resp BP Pulse Ox
97.4 F 83 18 110/61 99
03/25/24 15:14 03/25/24 19:25 03/25/24 19:25 03/25/24 19:25 03/25/24 19:25
[employer] consulted with Physician
[employer] consulted with physician?: Yes
Name of Physician Consulted: DR Frost
<BTEHANY Duarte - Last Filed: 03/25/24 22:54>
MDM/Problems Addressed
Differential Diagnosis Includes:
not limited to: irritation from G tube
MDM/Problems Addressed:
Patient was here requesting her G-tube which is used only for venting. She does get TPN through PICC line and has chronic gastroparesis. She is monitored at [facility]. [facility] offered to take this out tomorrow but she cannot wait and came to
the ER. G-tube was successfully removed without any difficulty. Patient has small area of redness to the area this was dried and dressed and new bag was placed on ostomy/opening. Patient now feels much better. Case discussed with ED physician.
pt d/c home to f/u with her GI at [facility].
Chronic conditions affecting care:
Chronic gastroparesis requiring TPN through PICC line has G-tube/ostomy for venting
<BETHANY Duarte - Last Filed: 03/25/24 22:54>
*Critical Care Note
Total Time (30-74mins, 75-104mins- exclusive of procedures): Not Applicable
ED Attending Note
<El Moore Jr., PA-C - Last Filed: 03/25/24 15:13>
-
Portions of this chart may have been created with voice recognition software.� Occasional wrong word or��sound alike� substitutions may have occurred due to the inherent limitations of voice recognition software.
Discharge Plan
Departure
Patient Disposition: Home (Routine Discharge)
Date of Disposition: 03/25/24
Time of Disposition: 20:19
Patient with high blood pressure during this ER visit?: No
Condition: Fair
Covid-19: Not Applicable
Discharge Problem:
g tube removal
Prescriptions:
No Action
furosemide 10 mg/mL solution
40 mg IV DAILYPRN PRN (Reason: edema)
mirtazapine 30 mg Tablet,Disintegrating
30 mg PO HS
sucralfate 100 mg/mL Suspension
10 ml PO QID
pantoprazole 40 mg recon soln
40 mg IV BID
Patient Comments:
09/03/2023, via picc line.
cyanocobalamin (vitamin B-12) 1,000 mcg/mL Solution
1,000 mcg IM QMONTH
estradiol [Estrace] 0.01 % (0.1 mg/gram) Cream
1 appful VAGINAL SUWE
sildenafil (pulm.hypertension) 20 mg Tablet
60 mg PO BID
Prolia 60 mg/mL Syringe
60 mg SC [id number]
Thyquidity 20 mcg/mL Solution
560 mcg PO DAILY@0700
cholecalciferol (vitamin D3) [Vitamin D3] 25 mcg (1,000 unit) Tablet
25 mcg PO DAILY
Blink Tears 0.25 % Drops
1 drp OPHTHALMIC (EYE) DAILYPRN PRN (Reason: dry eyes)
Rx Instructions:
both eyes
amlodipine 2.5 mg Tablet
2.5 mg PO DAILY
lorazepam 0.5 mg Tablet
0.5 mg PO HSPRN PRN (Reason: sleep)
hydroxyzine HCl 10 mg Tablet
10 mg PO TIDPRN PRN (Reason: itch)
Referrals:
NONE,* [Active] -
Activity Restrictions/Additional Instructions:
Your G-tube was removed. Please call your GI specialist tomorrow for further evaluation .
return if any worsening of symptoms.
Interventions
Interventions:
*Risk Screen - Suicide Last Done: 03/25/24 15:14
*General Assessment Last Done: 03/25/24 19:27
*Neglect/Abuse Screening Last Done: 03/25/24 15:14
*ED COVID-19 Vaccine History Last Done: 03/25/24 15:14
*Nursing Disposition Last Done: 03/25/24 20:44
EP-Blluem-Eeaaxthfxw Assessment Last Done: 03/25/24 19:34
ED-Female Genitourinary Assessment Last Done: 03/25/24 19:34
Discharge Date and Time
Discharge Date/Time: 03/25/24 20:45
Print Language: GREENLANDIC
[2024-03-25 15:14] VITALS: BP 111/56
[2024-03-25 17:26] VITALS: BP 105/55
[2024-03-25 19:25] VITALS: BP 110/61
== END 2024-03-25 20:45 | disposition home or self-care (01) ==
LOC: EMR 14:51
PROVIDERS: EMERGENCY PHYSICIAN Emergency Medicine; FAMILY PHYSICIAN Family Medicine
DX: Z46.59 Encounter for fitting and adjustment of other gastrointestinal appliance and device (principal); M34.9 Systemic sclerosis, unspecified; K31.84 Gastroparesis; E03.9 Hypothyroidism, unspecified; K58.9 Irritable bowel syndrome, unspecified; Z87.440 Personal history of urinary (tract) infections; Z90.710 Acquired absence of both cervix and uterus
CPT/HCPCS: 99282

== ENCOUNTER → 2024-04-15 14:12 | Outpatient (REF) | payer MEDICARE, OTHER, SELFPAY | LOC: HWRAD 14:12 | PROVIDERS: ATTENDING PHYSICIAN Internal Medicine Rheumatology; FAMILY PHYSICIAN Family Medicine | DX: M34.9 Systemic sclerosis, unspecified (principal); Z79.899 Other long term (current) drug therapy; J84.9 Interstitial pulmonary disease, unspecified | CPT/HCPCS: 71250 ==

== ENCOUNTER → 2024-04-16 14:14 | Outpatient (REF) | payer MEDICARE, OTHER, SELFPAY | LOC: HWRAD 14:14 | PROVIDERS: ATTENDING PHYSICIAN Internal Medicine Gastroenterology; FAMILY PHYSICIAN Family Medicine | DX: T18.9XXS Foreign body of alimentary tract, part unspecified, sequela (principal) | CPT/HCPCS: 74018 ==

== ENCOUNTER 2024-04-17 10:03 | Outpatient (RCR) | payer MEDICARE, OTHER, SELFPAY ==
[2024-03-26 09:40] VITALS: BP 114/51
[2024-03-26 10:05] VITALS: BP 102/54
[2024-03-26 12:00] VITALS: BP 108/57
[2024-03-27 09:11] VITALS: BP 107/54
[2024-03-27 09:33] VITALS: BP 98/50
[2024-03-27 11:51] VITALS: BP 126/53
[2024-04-17 10:38] VITALS: BP 126/55
[2024-04-17 11:01] VITALS: BP 115/57
[2024-04-17 12:41] VITALS: BP 133/73
== END 2024-04-19 23:59 | disposition home or self-care (01) ==
LOC: OID 10:03
PROVIDERS: ATTENDING PHYSICIAN Internal Medicine Hematology & Oncology; FAMILY PHYSICIAN Family Medicine
DX: D50.0 Iron deficiency anemia secondary to blood loss (chronic) (principal); D47.2 Monoclonal gammopathy; R53.83 Other fatigue
CPT/HCPCS: 36415; 36430; 86850; 86900; 86901; 86920; 86922; P9016

== ENCOUNTER 2024-04-27 11:03 | Emergency (ER) | payer MEDICARE, OTHER, SELFPAY ==
[2024-04-27] VITALS (8 sets, daily range): BP systolic 99–114; BP diastolic 47–65
--- NOTE | 2024-04-27 11:35 | ED.GENMED ---
History of Present Illness
<Adriana Myrick SKIN SPECIALIST - Last Filed: 04/27/24 19:39>
General
Chief Complaint: Abnormal Lab Value
Source: patient
Exam Limitations: none
Time Seen by Provider: 04/27/24 11:35
Nursing documentation reviewed up to this point in time: agreed with
History of Present Illness
History of Present Illness:
73 yo female w h/o GI bleed, systemic scleroderma gastroparesis requiring TPN and venting gastrostomy tube. Son at bedside states she's had chronic issues with her G tube, it has been removed and replaced several times due to leaking and pt
discomfort, she's had chronic GI bleeds, she has appointment in 2 days to replace her G tube which ostomy site is now covered with colostomy bag and draining dark fluid that pt states was more reddish past two days. Drainage today is back to the
dark brownish color as usual for her.
Denies abdominal pain, n/v. Denies CP or lightheadedness.
Has had a cough for two weeks
Per son at bedside, on 04/16 Hgb was 6.6, pt here and received 1 U PRBCs
She had blood work drawn 5 days ago w Hgb 8.0 per son
Due to reported more reddish liquid in ostomy bag recently, Had Hgb redrawn yesterday by home RN and Hgb is 6.0 so pt here for transfusion
Pt has appointment in two days at [facility] for IR to replace gastrostomy tube
She has appointment in 6 days at [facility] for endoscopy
Past History
<Adriana Myrick SKIN SPECIALIST - Last Filed: 04/27/24 19:39>
Past History
ED Past Medical History: Hypothyroidism, Other (Raynaud and scleroderma, Ascities, SBO, Spontanious Bacterial peritonitis, UTI, Fracture Femur, Chronic Nausea), Other (Uterine and rectal prolapse) and Other (Irritable bowel, takes Trulance)
ED Past Surgical History: Bowel resection, Brain (subdural hematoma), Gynecological (Hysterectomy), Orthopedic and Other (Hernia repair, thyroidectomy, vaginal prolapse, rectal prolapse)
Social History
Tobacco: Non-smoker
Alcohol: None
Drug: None
Personal:
Living: with family
Employment: Retired
Family History
Family History: Other (Noncontributory)
Review of Systems
<Adriana Myrick, SKIN SPECIALIST - Last Filed: 04/27/24 19:39>
Review of Systems
Allergies reviewed?: Yes
All Other Systems: ROS reviewed and negative except as documented in HPI and ROS
Constitutional: Reports fatigue; Denies fever
Respiratory: Reports cough; Denies trouble breathing
Cardiac: Denies chest pain, diaphoresis, palpitations or syncope
ABD/GI: Reports other (more reddish drainage than usual past couple days); Denies abdominal pain, nausea, vomiting or diarrhea
: Denies dysuria or difficulty voiding
Musculoskeletal: Reports neck pain (redness, swelling right 5th finger); Denies edema
Skin: Reports no symptoms
Neurological: Reports no symptoms
Phy Exam
<Adriana Myrick, SKIN SPECIALIST - Last Filed: 04/27/24 19:39>
Physical Exam
Physical Exam:
GENERAL: No acute distress. A&Ox3.
CONSTITUTIONAL: Afebrile.
EYES: clear, conjunctivae normal
ENMT: moist mucus membranes, Pharynx nl
RESPIRATORY: Regular respirations, nonlabored, lungs with rhonchi R>L, coarse junky cough noted.
CARDIOVASCULAR: Regular rate and rhythm, no murmurs, no rubs.
GI: Soft, nontender, normal BS. Gastrostomy stoma draining dark brownish fluid, no nissa blood. Pt states it is back to it's typical color
MUSCULOSKELETAL: Moves with ease. Well perfused.
SKIN: Warm, dry, pink
PSYCH: Normal mood and affect. Well kept, interactive and appropriate
NEUROLOGIC: Awake, alert and oriented. No focal neurological deficits
Course
<Adriana V. Day, SKIN SPECIALIST - Last Filed: 04/27/24 19:39>
Orders/Labs/Results
Orders:
Orders
04/27/24 11:49
CR Chest - 2 Views Urgent
Comment:
Reason For Exam: cough
04/27/24 11:56
Type And Crossmatch [Type+Screen] Urgent
C-Reactive Protein Urgent
Comment: ADD ON
COVID-19 Antigen Urgent
Source: Nasal Swab
Complete Blood Count/With Diff Urgent
Comprehensive Metabolic Panel Urgent
Erythrocyte Sed Rate Urgent
Comment: ADD ON
Influenza A+B Rapid Molecular Urgent
PATTIE Source: Nasal Swab
Specimen Description:
04/27/24 12:10
Acetaminophen [Tylenol Suspension] 650 mg PO NOW STA
04/27/24 13:27
* Blood Bank Products Urgent
Blood Bank Products: *Packed RBC Leuko(PRBC's)
Quantity: 1
Transfuse Today: Yes
Reason: Anemia
IV Insert/Care/Rem.- Treatment PRN
04/27/24 13:45
* Blood Bank Products Urgent
Blood Bank Products: *Packed RBC Leuko(PRBC's)
Quantity: 1
Transfuse Today: Yes
Reason: Anemia
04/27/24 13:46
IV Insert/Care/Rem.- Treatment PRN
04/27/24 18:38
0.9% Sodium Chloride 500 ml [Nss] 500 ml IV BOLUS
04/27/24 18:58
Acetaminophen [Tylenol Oral Solution] 650 mg PO NOW STA
04/27/24 20:30
Hand, Right 3 View [CR Hand - Right Min 3 Views] Urgent
Comment:
Reason For Exam: infection
04/27/24 20:31
Add On- LAB Urgent
Tests Added?: esr/crp
Abnormal Lab Results
04/27/24
11:56
RBC 2.06 L 10^6/uL
(4.20-5.40)
Hgb 6.2 L* g/dL
(12.0-16.0)
Hct 20.1 L* %
(37.0-47.0)
MCHC 30.8 L g/dL
(33.0-37.0)
RDW 18.0 H %
(11.5-14.5)
Plt Count 100 L 10^3/uL
(130-400)
MPV 12.1 H fL
(7.4-10.4)
Absolute Lymphs (auto) 0.3 L 10^3/uL
(1.2-3.4)
Neutrophils % 86.7 H %
(42.2-75.2)
Lymphocytes % 5.2 L %
(20.5-51.1)
BUN 59 H mg/dl
(7-17)
Creatinine 1.2 H mg/dL
(0.6-1.0)
Glucose 115 H mg/dl
(70-99)
AST 48 H U/L
(14-36)
Alkaline Phosphatase 317 H U/L
(38-126)
Total Protein 5.9 L g/dl
(6.3-8.2)
Albumin 2.5 L g/dl
(3.5-5.0)
04/27/24 11:56
04/27/24 11:56
Vital Signs
Initial and Last Documented VS:
Initial Vital Signs
Temp Pulse Resp BP Pulse Ox
98.2 F 93 17 114/47 95
04/27/24 11:04 04/27/24 11:04 04/27/24 11:04 04/27/24 11:04 04/27/24 11:04
Last Documented Vital Signs
Temp Pulse Resp BP Pulse Ox
100.3 F 94 20 111/55 92
04/27/24 19:59 04/27/24 20:00 04/27/24 20:00 04/27/24 20:00 04/27/24 19:59
<Nhan Frost, DO - Last Filed: 04/27/24 21:21>
Orders/Labs/Results
Orders:
Orders
04/27/24 11:49
CR Chest - 2 Views Urgent
Comment:
Reason For Exam: cough
04/27/24 11:56
Type And Crossmatch [Type+Screen] Urgent
C-Reactive Protein Urgent
Comment: ADD ON
COVID-19 Antigen Urgent
Source: Nasal Swab
Complete Blood Count/With Diff Urgent
Comprehensive Metabolic Panel Urgent
Erythrocyte Sed Rate Urgent
Comment: ADD ON
Influenza A+B Rapid Molecular Urgent
PATTIE Source: Nasal Swab
Specimen Description:
04/27/24 12:10
Acetaminophen [Tylenol Suspension] 650 mg PO NOW STA
04/27/24 13:27
* Blood Bank Products Urgent
Blood Bank Products: *Packed RBC Leuko(PRBC's)
Quantity: 1
Transfuse Today: Yes
Reason: Anemia
IV Insert/Care/Rem.- Treatment PRN
04/27/24 13:45
* Blood Bank Products Urgent
Blood Bank Products: *Packed RBC Leuko(PRBC's)
Quantity: 1
Transfuse Today: Yes
Reason: Anemia
04/27/24 13:46
IV Insert/Care/Rem.- Treatment PRN
04/27/24 18:38
0.9% Sodium Chloride 500 ml [Nss] 500 ml IV BOLUS
04/27/24 18:58
Acetaminophen [Tylenol Oral Solution] 650 mg PO NOW STA
04/27/24 20:30
Hand, Right 3 View [CR Hand - Right Min 3 Views] Urgent
Comment:
Reason For Exam: infection
04/27/24 20:31
Add On- LAB Urgent
Tests Added?: esr/crp
Abnormal Lab Results
04/27/24
11:56
RBC 2.06 L 10^6/uL
(4.20-5.40)
Hgb 6.2 L* g/dL
(12.0-16.0)
Hct 20.1 L* %
(37.0-47.0)
MCHC 30.8 L g/dL
(33.0-37.0)
RDW 18.0 H %
(11.5-14.5)
Plt Count 100 L 10^3/uL
(130-400)
MPV 12.1 H fL
(7.4-10.4)
Absolute Lymphs (auto) 0.3 L 10^3/uL
(1.2-3.4)
Neutrophils % 86.7 H %
(42.2-75.2)
Lymphocytes % 5.2 L %
(20.5-51.1)
BUN 59 H mg/dl
(7-17)
Creatinine 1.2 H mg/dL
(0.6-1.0)
Glucose 115 H mg/dl
(70-99)
AST 48 H U/L
(14-36)
Alkaline Phosphatase 317 H U/L
(38-126)
Total Protein 5.9 L g/dl
(6.3-8.2)
Albumin 2.5 L g/dl
(3.5-5.0)
04/27/24 11:56
04/27/24 11:56
Vital Signs
Initial and Last Documented VS:
Initial Vital Signs
Temp Pulse Resp BP Pulse Ox
98.2 F 93 17 114/47 95
04/27/24 11:04 04/27/24 11:04 04/27/24 11:04 04/27/24 11:04 04/27/24 11:04
Last Documented Vital Signs
Temp Pulse Resp BP Pulse Ox
100.3 F 94 20 111/55 92
04/27/24 19:59 04/27/24 20:00 04/27/24 20:00 04/27/24 20:00 04/27/24 19:59
<Adriana Myrick NP - Last Filed: 04/27/24 19:39>
MDM/Problems Addressed
Differential Diagnosis Includes:
Covid, Flu, PNA
Anemia, GI bleed
MDM/Problems Addressed:
73 yo female w h/o GI bleed, systemic scleroderma gastroparesis requiring TPN and venting gastrostomy tube. Son at bedside states she's had chronic issues with her G tube, intermittent bleeding, it has been removed and replaced several times due to
leaking and pt discomfort, she's had chronic GI bleeds, she has appointment in 2 days to replace her G tube which ostomy site is now covered with colostomy bag and draining dark fluid that pt states was more reddish past two days. Drainage today is
back to the dark brownish color as usual for her.
Denies abdominal pain, n/v. Denies CP or lightheadedness. Denies SOB but has had a cough past 2 weeks which PCP is aware of.
Is receiving PICC line IV Ceftriaxone for infection of R 5th finger evaluated by PCP yesterday, has had one dose.
Per son at bedside, on 04/16 Hgb was 6.6, pt here and received 1 U PRBCs
She had blood work drawn 5 days ago w Hgb 8.0 per son
Due to reported more reddish liquid in ostomy bag recently, Had Hgb redrawn yesterday by home RN and Hgb is 6.0 so pt here for transfusion
Pt has appointment in two days at [facility] for IR to replace gastrostomy tube
She has appointment in 6 days at [facility] for endoscopy
Pt with coarse junky cough,
Dark fluid in ostomy bag about 1/3 full.
Afebrile, NAD
12:00 p.m.
CBC: Hgb 6.2
CMP with no clinically significant abnormality, consistent with her previous
COVID-negative
Flu neg
CXR radiology report read: IMPRESSION:
Mild right upper lobe parenchymal opacities with a similar appearance compared to the chest CT from 04/15/2024. This again may be secondary to the patient's systemic sclerosis, but clinical correlation is recommended.
Right Port-A-Cath with the catheter tip at the cavoatrial junction.
73 yo female with anemia from acute on chronic blood loss through her gastrostomy tube. No systemic symptoms.
Pt has been antibody positive in the past so lab is reaching out to [facility] for blood.
7:30 p.m.
Still awaiting blood products from [facility]. Reportedly on their way.
Pt remains stable.
Case discussed with Kirt Hernandez who will assume care from this point.
Also informed Dr. Frost of this case
Chronic conditions affecting care:
Chronic gastroparesis requiring TPN through PICC line has G-tube/ostomy for venting
<Nhan Frost DO - Last Filed: 04/27/24 21:21>
*Critical Care Note
Total Time (30-74mins, 75-104mins- exclusive of procedures): Not Applicable
<Nhan Frost DO - Last Filed: 04/27/24 21:21>
Update Note
Update Note:
920P----blood is now available patient will be transfused to go home per her wishes reviewed with hospitalist
ED Attending Note
<Adriana Myrick, SKIN SPECIALIST - Last Filed: 04/27/24 19:39>
-
Portions of this chart may have been created with voice recognition software.� Occasional wrong word or��sound alike� substitutions may have occurred due to the inherent limitations of voice recognition software.
<Nhan Frost DO - Last Filed: 04/27/24 21:21>
ED Attending Note
Patient seen and examined by attending physician: Yes
I performed the substantive portion of visit, reviewed & personally made and approve the management plan that is documented in note by myself or SALINA.: Yes
ED Attending Note:
8:30 PM--- signout from the IM team pending the blood transfusion she has multiple antibodies apparently has scleroderma [place] involved, she also has infection on her right hand got a dose of ceftriaxone noted to have a fever here in her greater
9 hours no blood yet, requesting her TPN because started to keep her blood sugar up, at this point I believe will be prudent to admit her to the hospital multiple issues that I am not sure I am going to be able to sort out
Meantime we will check ESR CRP and a hand x-ray
Discharge Plan
Departure
Patient Disposition: Home (Routine Discharge)
Date of Disposition: 04/27/24
Time of Disposition: 21:10
Patient with high blood pressure during this ER visit?: No
Condition: Good
Discharge Problem:
Anemia, GI bleed, Finger infection
Instructions: GI bleed - Discharge instructions, Cough in adults - ED discharge instructions
Prescriptions:
No Action
furosemide 10 mg/mL solution
40 mg IV DAILYPRN PRN (Reason: edema)
mirtazapine 30 mg Tablet,Disintegrating
30 mg PO HS
sucralfate 100 mg/mL Suspension
10 ml PO QID
pantoprazole 40 mg recon soln
40 mg IV BID
Patient Comments:
09/03/2023, via picc line.
cyanocobalamin (vitamin B-12) 1,000 mcg/mL Solution
1,000 mcg IM QMONTH
estradiol [Estrace] 0.01 % (0.1 mg/gram) Cream
1 appful VAGINAL SUWE
sildenafil (pulm.hypertension) 20 mg Tablet
60 mg PO BID
Prolia 60 mg/mL Syringe
60 mg SC [id number]
Thyquidity 20 mcg/mL Solution
560 mcg PO DAILY@0700
cholecalciferol (vitamin D3) [Vitamin D3] 25 mcg (1,000 unit) Tablet
25 mcg PO DAILY
Blink Tears 0.25 % Drops
1 drp OPHTHALMIC (EYE) DAILYPRN PRN (Reason: dry eyes)
Rx Instructions:
both eyes
amlodipine 2.5 mg Tablet
2.5 mg PO DAILY
lorazepam 0.5 mg Tablet
0.5 mg PO HSPRN PRN (Reason: sleep)
hydroxyzine HCl 10 mg Tablet
10 mg PO TIDPRN PRN (Reason: itch)
Referrals:
Your, [facility] [Other] - Keep scheduled appt
Toyin Goldstein MD [Family Provider] -
Activity Restrictions/Additional Instructions:
As we discussed, you received 2 unit packed red blood cells
Try Mucinex for your cough.
Keep appointment Monday with IR and Monday with your GI doctor at [facility].
Return here immediately for worsening fresh red bleeding from your gastrostomy or feeling worse in any way
Interventions
Interventions:
*Risk Screen - Suicide Last Done: 04/27/24 12:37
*General Assessment Last Done: 04/27/24 11:04
*Neglect/Abuse Screening Last Done: 04/27/24 12:37
ED- Fall Risk Assessment Last Done: 04/27/24 11:04
*ED COVID-19 Vaccine History Last Done: 04/27/24 11:04
Discharge Date and Time
Print Language: UKRAINIAN
[2024-04-27 12:22] LABS: % Eosinophils 0.2 % (0-6); % Immature Granulocytes 0.5 % (0-0.5); % Lymphocytes 5.2 % (20.5-51.1); % Monocytes 7.4 % (1.7-9.3); % Neutrophils 86.7 % (42.2-75.2); Absolute Lymphocytes 0.3 10^3/uL (1.2-3.4); Absolute Monocytes 0.5 10^3/uL (0.1-0.6); Absolute Neutrophils 5.5 10^3/uL (1.4-6.5); Hematocrit 20.1 % (37.0-47.0); Hemoglobin 6.2 g/dL (12.0-16.0); Mean Corp Hgb Conc. 30.8 g/dL (33.0-37.0); Mean Corpuscular Hgb 30.1 pg (27.0-31.0); Mean Corpuscular Volume 97.6 fL (81.0-99.0); Mean Platelet Volume 12.1 fL (7.4-10.4); Nucleated Red Blood Cells % 0 %; Platelet Count 100 10^3/uL (130-400); Red Blood Cell Count 2.06 10^6/uL (4.20-5.40); White Blood Cell Count 6.3 10^3/uL (4.8-10.8)
[2024-04-27] MEDS: TYLENOL SUSPENSION 650 MG PO (12:25)
[2024-04-27 12:31] LABS: ALT (SGPT) 33 U/L (0-35); AST (SGOT) 48 U/L (14-36); Albumin 2.5 g/dl (3.5-5.0); Alkaline Phosphatase 317 U/L (38-126); Blood Urea Nitrogen 59 mg/dl (7-17); Calcium 8.5 mg/dl (8.4-10.2); Carbon Dioxide 29 mmol/L (22-30); Chloride 106 mmol/L (98-107); Glucose 115 mg/dl (70-99); Potassium 3.7 mmol/L (3.5-5.1); Sodium 142 mmol/L (135-145); Total Bilirubin 0.6 mg/dl (0.2-1.3); Total Protein 5.9 g/dl (6.3-8.2)
[2024-04-27 12:32] LABS: COVID-19 Antigen Negative (Negative)
[2024-04-27] MEDS: NSS 500 IV (18:57)
[2024-04-27] MEDS: TYLENOL ORAL SOLUTION 650 MG PO (18:58)
--- NOTE | 2024-04-27 19:39 | EDRN ---
Informed by V Elen DIAL MARKER that pt is to get 2 units PRBCs then be discharged home.
--- NOTE | 2024-04-27 20:09 | EDRN ---
NS infusion placed on pump - pt complains of headache 5/10 - low grade fever noted. Pt has occasional junky cough. Pt denies cp, sob, abd pain, n/v, dizziness. Pt feels generally weak.
--- NOTE | 2024-04-27 22:30 | EDRN ---
White card sent to lab for PRBC
--- NOTE | 2024-04-27 23:00 | EDRN ---
Confirmed with blood bank in presence of Binu Braxton RN that O neg blood is what is given to pt's with B pos and the specific antibodies/antigens that pt's blood has.
[2024-04-28] VITALS: BP 97/52
[2024-04-28 01:22] VITALS: BP 96/56
--- NOTE | 2024-04-28 01:26 | EDRN ---
Second white card sent for PRBC. Pt reports no new symptoms after first unit PRBC infused.
[2024-04-28 02:00] VITALS: BP 104/50
[2024-04-28] MEDS: TYLENOL SUSPENSION 650 MG PO (02:12)
[2024-04-28 02:20] VITALS: BP 121/57
--- NOTE | 2024-04-28 02:27 | EDRN ---
Pt requested tylenol for headache which was given. Pt's junky cough has increased in frequency. Pt says she feels 'fine' and that she still wants to go home after the second unit PRBC finished.
[2024-04-28 04:24] VITALS: BP 122/78
--- NOTE | 2024-04-28 04:35 | EDRN ---
Placed pulse ox on pt's ear lobe, pulse ox reading 77-79% room air. Pt initially said she felt sob but while sitting for awhile, she said she wasn't sob any more. Dr Goodrich informed and in to talk with pt.
--- NOTE | 2024-04-28 04:39 | EDRN ---
Pt agrees to stay in the hospital. 2lpm O2 placed on pt and pulse ox currently 92-93%
--- NOTE | 2024-04-28 04:43 | ED.GENMED ---
History of Present Illness
General
Chief Complaint: Abnormal Lab Value
Time Seen by Provider: 04/27/24 11:35
History of Present Illness
History of Present Illness:
Please see previous HPI
Past History
Past History
ED Past Medical History: Hypothyroidism, Other (Raynaud and scleroderma, Ascities, SBO, Spontanious Bacterial peritonitis, UTI, Fracture Femur, Chronic Nausea), Other (Uterine and rectal prolapse) and Other (Irritable bowel, takes Trulance)
ED Past Surgical History: Bowel resection, Brain (subdural hematoma), Gynecological (Hysterectomy), Orthopedic and Other (Hernia repair, thyroidectomy, vaginal prolapse, rectal prolapse)
Social History
Tobacco: Non-smoker
Alcohol: None
Drug: None
Personal:
Living: with family
Employment: Retired
Family History
Family History: Other (Noncontributory)
Phy Exam
Physical Exam
Physical Exam:
.
Pulmonary Exam
Pulmonary Exam: accessory muscle use and respiratory distress
Course
Orders/Labs/Results
Orders:
Orders
04/27/24 11:49
CR Chest - 2 Views Urgent
Comment:
Reason For Exam: cough
04/27/24 11:56
Type And Crossmatch [Type+Screen] Urgent
C-Reactive Protein Urgent
Comment: ADD ON
COVID-19 Antigen Urgent
Source: Nasal Swab
Complete Blood Count/With Diff Urgent
Comprehensive Metabolic Panel Urgent
Influenza A+B Rapid Molecular Urgent
PATTIE Source: Nasal Swab
Specimen Description:
04/27/24 12:10
Acetaminophen [Tylenol Suspension] 650 mg PO NOW STA
04/27/24 13:27
* Blood Bank Products Urgent
Blood Bank Products: *Packed RBC Leuko(PRBC's)
Quantity: 1
Transfuse Today: Yes
Reason: Anemia
IV Insert/Care/Rem.- Treatment PRN
04/27/24 13:45
* Blood Bank Products Urgent
Blood Bank Products: *Packed RBC Leuko(PRBC's)
Quantity: 1
Transfuse Today: Yes
Reason: Anemia
04/27/24 13:46
IV Insert/Care/Rem.- Treatment PRN
04/27/24 18:38
0.9% Sodium Chloride 500 ml [Nss] 500 ml IV BOLUS
04/27/24 18:58
Acetaminophen [Tylenol Oral Solution] 650 mg PO NOW STA
04/27/24 20:30
Hand, Right 3 View [CR Hand - Right Min 3 Views] Urgent
Comment:
Reason For Exam: infection
04/27/24 20:31
Add On- LAB Urgent
Tests Added?: esr/crp
04/28/24 02:09
Acetaminophen [Tylenol Suspension] 650 mg PO NOW STA
04/28/24 04:42
Furosemide [Lasix] 60 mg IV NOW STA
04/28/24 05:10
PRN Pain Medication Management As Directed
May give lesser potent ordered pain med per pt: Yes
preference::
Protocol:: Medication orders for pain may be administered in a
manner that supports deferring to patient preference
when the pt is:
- Requesting an ordered lesser potent pain medication.
Least to most potent pain medications are defined
as: acetaminophen < NSAID < tramadol < opioids
(morphine, oxycodone, hydromorphone).
- Requesting a lesser dose of the same medication IF
ORDERED.
- Requesting a less intrusive route of administration
if both routes are prescribed by the provider (PO <
IV).
04/28/24 05:13
Code Status As Directed
Resuscitation Status: Full Code
05/01/24 11:00
DC Protocol for Telemetry ONCE
Abnormal Lab Results
04/27/24
11:56
RBC 2.06 L 10^6/uL
(4.20-5.40)
Hgb 6.2 L* g/dL
(12.0-16.0)
Hct 20.1 L* %
(37.0-47.0)
MCHC 30.8 L g/dL
(33.0-37.0)
RDW 18.0 H %
(11.5-14.5)
Plt Count 100 L 10^3/uL
(130-400)
MPV 12.1 H fL
(7.4-10.4)
Absolute Lymphs (auto) 0.3 L 10^3/uL
(1.2-3.4)
Neutrophils % 86.7 H %
(42.2-75.2)
Lymphocytes % 5.2 L %
(20.5-51.1)
BUN 59 H mg/dl
(7-17)
Creatinine 1.2 H mg/dL
(0.6-1.0)
Glucose 115 H mg/dl
(70-99)
AST 48 H U/L
(14-36)
Alkaline Phosphatase 317 H U/L
(38-126)
C-Reactive Protein 36.90 H mg/L
(0.0-10.00)
Total Protein 5.9 L g/dl
(6.3-8.2)
Albumin 2.5 L g/dl
(3.5-5.0)
Crossmatch IS Only See Detail
MTS Gel Crossmatch See Detail
04/27/24 11:56
04/27/24 11:56
Vital Signs
Initial and Last Documented VS:
Initial Vital Signs
Temp Pulse Resp BP Pulse Ox
98.2 F 93 17 114/47 95
04/27/24 11:04 04/27/24 11:04 04/27/24 11:04 04/27/24 11:04 04/27/24 11:04
Last Documented Vital Signs
Temp Pulse Resp BP Pulse Ox
99.2 F 87 21 121/61 91
04/28/24 04:24 04/28/24 06:15 04/28/24 06:15 04/28/24 04:50 04/28/24 06:15
*Critical Care Note
Total Time (30-74mins, 75-104mins- exclusive of procedures): Not Applicable
Update Note
Update Note:
73-year-old female with anemia had a transfusion. Patient received both units of blood but that has been hypoxic. O2 sat on room air was 79%. Receiving Lasix getting supplemental oxygen via nasal cannula. Will be admitted for continued
observation
ED Attending Note
-
Portions of this chart may have been created with voice recognition software.� Occasional wrong word or��sound alike� substitutions may have occurred due to the inherent limitations of voice recognition software.
Discharge Plan
Departure
Patient Disposition: Admit
Date of Disposition: 04/27/24
Time of Disposition: 21:10
Presentation/result/management discussed w/ accepting MD/DO: Hospitalist
Patient with high blood pressure during this ER visit?: No
Condition: Good
Discharge Problem:
Anemia, GI bleed, Finger infection
Interventions
Interventions:
*Risk Screen - Suicide Last Done: 04/27/24 12:37
*General Assessment Last Done: 04/27/24 11:04
*Neglect/Abuse Screening Last Done: 04/27/24 12:37
ED- Fall Risk Assessment Last Done: 04/27/24 11:04
*ED COVID-19 Vaccine History Last Done: 04/27/24 11:04
*Nursing Disposition Last Done: 04/28/24 06:59
Discharge Date and Time
Discharge Date/Time: 04/28/24 06:59
[2024-04-28] MEDS: LASIX 60 MG IV (04:50)
--- NOTE | 2024-04-28 05:32 | EDRN ---
Pt now says she does not want to stay in the hospital. Mei Braxton, insulation cupola charger, informed Dr Piedra of this. Pt to sign AMA. This RN disconnected pt from monitoring equipment so she can go to the bathroom. Second time since lasix IV.
--- NOTE | 2024-04-28 05:54 | EDRN ---
[id number] - pt rang call villa from bathroom and requested a urinary catheter. Pt does not know size. Pt given straight cath kit which this RN opened to assist pt. Dr Piedra given AMA form to have pt sign.
--- NOTE | 2024-04-28 06:25 | W.PN.UPDATE ---
Update Note
Progress Note Update
Patient does not wish to be admitted to the hospital.
Reviewed her multiple health issues, hypoxemia and risks of deterioration, worsening condition and possible .
Patient understands our concerns and wishes to sign out of the hospital against medical advice.
She was not admitted from the ED and signed-out prior to admission.
Patient will follow-up with her physicians at [place] as scheduled.
Advised to return to the ED with any new or worsening symptoms.
--- NOTE | 2024-04-28 06:32 | EDRN ---
Pt has someone picking her up. Pt disconnected from monitoring equipment. Pulse ox dropped into mid 80's on room air while pt lying on stretcher. Pt denies sob.
== END 2024-04-28 06:59 | disposition still patient (30) ==
LOC: EMR 11:03
PROVIDERS: Registered Nurse; ATTENDING PHYSICIAN Hospitalist; EMERGENCY PHYSICIAN Emergency Medicine; FAMILY PHYSICIAN Family Medicine
DX: D64.9 Anemia, unspecified (principal); L08.9 Local infection of the skin and subcutaneous tissue, unspecified; K92.2 Gastrointestinal hemorrhage, unspecified; Z53.29 Procedure and treatment not carried out because of patient's decision for other reasons
CPT/HCPCS: 36430; 71046; 73130; 80053; 85025; 86140; 86850; 86900; 86901; 86920; 86922; 87502; 87811; 96361; 96374; 99285; P9016

== ENCOUNTER 2024-05-14 17:22 | Emergency (ER) | payer MEDICARE, OTHER, SELFPAY ==
[2024-05-14 17:42] VITALS: BP 99/59
[2024-05-14 18:24] LABS: % Basophils 0.8 % (0-2); % Eosinophils 0.4 % (0-6); % Immature Granulocytes 0.5 % (0-0.5); % Lymphocytes 11.5 % (20.5-51.1); % Monocytes 10.3 % (1.7-9.3); % Neutrophils 76.5 % (42.2-75.2); ALT (SGPT) 53 U/L (0-35); AST (SGOT) 53 U/L (14-36); Absolute Basophils 0.1 10^3/uL (0-0.2); Absolute Immature Granulocytes 0.1 10^3/uL (0-0.05); Absolute Lymphocytes 1.1 10^3/uL (1.2-3.4); Absolute Neutrophils 7.1 10^3/uL (1.4-6.5); Albumin 3.4 g/dl (3.5-5.0); Alkaline Phosphatase 318 U/L (38-126); Blood Urea Nitrogen 82 mg/dl (7-17); Calcium 8.4 mg/dl (8.4-10.2); Carbon Dioxide 24 mmol/L (22-30); Chloride 97 mmol/L (98-107); Glucose 112 mg/dl (70-99); Hematocrit 22.6 % (37.0-47.0); Mean Corpuscular Volume 93.8 fL (81.0-99.0); Mean Platelet Volume 10.8 fL (7.4-10.4); Nucleated Red Blood Cells % 0 %; Platelet Count 225 10^3/uL (130-400); Potassium 4.9 mmol/L (3.5-5.1); Red Blood Cell Count 2.41 10^6/uL (4.20-5.40); Red Cell Dist. Width 16.4 % (11.5-14.5); Sodium 133 mmol/L (135-145); Total Bilirubin 0.9 mg/dl (0.2-1.3); Total Protein 6.7 g/dl (6.3-8.2); White Blood Cell Count 9.2 10^3/uL (4.8-10.8); eGFR 33.84
--- NOTE | 2024-05-14 20:10 | ED.GENMED ---
History of Present Illness
<Isaac Ac DO - Last Filed: 05/14/24 20:12>
General
Chief Complaint: Abnormal Lab Value
Source: patient
Exam Limitations: none
Time Seen by Provider: 05/14/24 19:14
Nursing documentation reviewed up to this point in time: agreed with
History of Present Illness
History of Present Illness:
73-year-old female presents emerged from complaining of
<Dave Carreon PA-C - Last Filed: 05/14/24 20:18>
General
Source: patient
Exam Limitations: none
History of Present Illness
History of Present Illness:
73-year-old female with history of scleroderma anemia presents complaining of fatigue and low hemoglobin. She had outpatient labs drawn yesterday and she found the result today and the result was 6.2. She was scheduled for transfusion in 2 days at
the infusion center but her symptoms worsened and she came here. She notes fatigue and shortness of breath. She denies any pain currently.
Past History
<DO Ita Urias Last Filed: 05/14/24 20:12>
Past History
ED Past Medical History: Hypothyroidism, Other (Raynaud and scleroderma, Ascities, SBO, Spontanious Bacterial peritonitis, UTI, Fracture Femur, Chronic Nausea), Other (Uterine and rectal prolapse) and Other (Irritable bowel, takes Trulance)
ED Past Surgical History: Bowel resection, Brain (subdural hematoma), Gynecological (Hysterectomy), Orthopedic and Other (Hernia repair, thyroidectomy, vaginal prolapse, rectal prolapse)
Social History
Tobacco: Non-smoker
Alcohol: None
Drug: None
Personal:
Living: with family
Employment: Retired
Family History
Family History: Other (Noncontributory)
Phy Exam
<Dave Carreon PA-C - Last Filed: 05/14/24 20:18>
Physical Exam
Physical Exam:
General: Well-appearing female in no acute respiratory distress
HEENT: Normocephalic atraumatic
Heart: Regular rate and rhythm
Lungs: Clear no wheeze
Extremities: No cyanosis or edema
Course
<Isaac Ac, DO - Last Filed: 05/14/24 20:12>
Orders/Labs/Results
Orders:
Orders
05/14/24 17:56
Complete Blood Count/With Diff Urgent
Comprehensive Metabolic Panel Urgent
05/14/24 19:52
Blood Bank Products [* Blood Bank Products] Urgent
Blood Bank Products: *Packed RBC Leuko(PRBC's)
Quantity: 1
Transfuse Today: Yes
Reason: Anemia
0.9% Sodium Chloride 500 ml [Nss] 500 ml IV BOLUS
05/14/24 20:08
CR Chest Single View Urgent
Comment:
Reason For Exam: PICC line confirmation
05/14/24 20:09
CT Abd/pel Without Iv Or Oral Urgent
Comment:
Reason For Exam: bilateral abdominal pain
Foot, Left 3 View [CR Foot - Left Min 3 Views] Urgent
Comment:
Reason For Exam: left foot pain
05/14/24 20:10
Urinalysis Reflex To Culture Urgent
Abnormal Lab Results
05/14/24
17:56
RBC 2.41 L 10^6/uL
(4.20-5.40)
Hgb 7.0 L g/dL
(12.0-16.0)
Hct 22.6 L %
(37.0-47.0)
MCHC 31.0 L g/dL
(33.0-37.0)
RDW 16.4 H %
(11.5-14.5)
MPV 10.8 H fL
(7.4-10.4)
Abs Immat Gran (auto) 0.1 H 10^3/uL
(0-0.05)
Absolute Neuts (auto) 7.1 H 10^3/uL
(1.4-6.5)
Absolute Lymphs (auto) 1.1 L 10^3/uL
(1.2-3.4)
Absolute Monos (auto) 1.0 H 10^3/uL
(0.1-0.6)
Neutrophils % 76.5 H %
(42.2-75.2)
Lymphocytes % 11.5 L %
(20.5-51.1)
Monocytes % 10.3 H %
(1.7-9.3)
Sodium 133 L mmol/L
(135-145)
Chloride 97 L mmol/L
(98-107)
BUN 82 H mg/dl
(7-17)
Creatinine 1.6 H mg/dL
(0.6-1.0)
Glucose 112 H mg/dl
(70-99)
AST 53 H U/L
(14-36)
ALT 53 H U/L
(0-35)
Alkaline Phosphatase 318 H U/L
(38-126)
Albumin 3.4 L g/dl
(3.5-5.0)
05/14/24 17:56
05/14/24 17:56
Vital Signs
Initial and Last Documented VS:
Initial Vital Signs
Temp Pulse Resp BP Pulse Ox
97.8 F 88 18 99/59 99
05/14/24 17:42 05/14/24 17:42 05/14/24 17:42 05/14/24 17:42 05/14/24 17:42
Last Documented Vital Signs
Temp Pulse Resp BP Pulse Ox
97.8 F 88 18 99/59 99
05/14/24 17:42 05/14/24 17:42 05/14/24 17:42 05/14/24 17:42 05/14/24 17:42
<Dave Carreon PA-C - Last Filed: 05/14/24 20:18>
Orders/Labs/Results
Orders:
Orders
05/14/24 17:56
Complete Blood Count/With Diff Urgent
Comprehensive Metabolic Panel Urgent
05/14/24 19:52
Blood Bank Products [* Blood Bank Products] Urgent
Blood Bank Products: *Packed RBC Leuko(PRBC's)
Quantity: 1
Transfuse Today: Yes
Reason: Anemia
0.9% Sodium Chloride 500 ml [Nss] 500 ml IV BOLUS
05/14/24 20:08
CR Chest Single View Urgent
Comment:
Reason For Exam: PICC line confirmation
05/14/24 20:09
CT Abd/pel Without Iv Or Oral Urgent
Comment:
Reason For Exam: bilateral abdominal pain
Foot, Left 3 View [CR Foot - Left Min 3 Views] Urgent
Comment:
Reason For Exam: left foot pain
05/14/24 20:10
Urinalysis Reflex To Culture Urgent
Abnormal Lab Results
05/14/24
17:56
RBC 2.41 L 10^6/uL
(4.20-5.40)
Hgb 7.0 L g/dL
(12.0-16.0)
Hct 22.6 L %
(37.0-47.0)
MCHC 31.0 L g/dL
(33.0-37.0)
RDW 16.4 H %
(11.5-14.5)
MPV 10.8 H fL
(7.4-10.4)
Abs Immat Gran (auto) 0.1 H 10^3/uL
(0-0.05)
Absolute Neuts (auto) 7.1 H 10^3/uL
(1.4-6.5)
Absolute Lymphs (auto) 1.1 L 10^3/uL
(1.2-3.4)
Absolute Monos (auto) 1.0 H 10^3/uL
(0.1-0.6)
Neutrophils % 76.5 H %
(42.2-75.2)
Lymphocytes % 11.5 L %
(20.5-51.1)
Monocytes % 10.3 H %
(1.7-9.3)
Sodium 133 L mmol/L
(135-145)
Chloride 97 L mmol/L
(98-107)
BUN 82 H mg/dl
(7-17)
Creatinine 1.6 H mg/dL
(0.6-1.0)
Glucose 112 H mg/dl
(70-99)
AST 53 H U/L
(14-36)
ALT 53 H U/L
(0-35)
Alkaline Phosphatase 318 H U/L
(38-126)
Albumin 3.4 L g/dl
(3.5-5.0)
05/14/24 17:56
05/14/24 17:56
Vital Signs
Initial and Last Documented VS:
Initial Vital Signs
Temp Pulse Resp BP Pulse Ox
97.8 F 88 18 99/59 99
05/14/24 17:42 05/14/24 17:42 05/14/24 17:42 05/14/24 17:42 05/14/24 17:42
Last Documented Vital Signs
Temp Pulse Resp BP Pulse Ox
97.8 F 88 18 99/59 99
05/14/24 17:42 05/14/24 17:42 05/14/24 17:42 05/14/24 17:42 05/14/24 17:42
<Dave Carreon PA-C - Last Filed: 05/14/24 20:18>
MDM/Problems Addressed
Differential Diagnosis Includes:
Hemoglobin today is 7.0. Patient is symptomatic with her anemia baseline is around 8. Consent ordered for blood and signed however blood bank is aware of her and she requires a type of blood but cannot get it for 2 days. I relayed this
information to the patient. She will be unable to receive a blood transfusion today. She will continue to follow-up with the infusion center as scheduled.
<Dave Carreon PA-C - Last Filed: 05/14/24 20:18>
*Critical Care Note
Total Time (30-74mins, 75-104mins- exclusive of procedures): Not Applicable
ED Attending Note
<Isaac Ac, - Last Filed: 05/14/24 20:12>
-
Portions of this chart may have been created with voice recognition software.� Occasional wrong word or��sound alike� substitutions may have occurred due to the inherent limitations of voice recognition software.
Discharge Plan
Departure
Patient Disposition: Home (Routine Discharge)
Date of Disposition: 05/14/24
Time of Disposition: 20:17
Patient with high blood pressure during this ER visit?: No
Discharge Problem:
Chronic anemia
Prescriptions:
No Action
furosemide 10 mg/mL solution
40 mg IV DAILYPRN PRN (Reason: edema)
mirtazapine 30 mg Tablet,Disintegrating
30 mg PO HS
sucralfate 100 mg/mL Suspension
10 ml PO QID
pantoprazole 40 mg recon soln
40 mg IV BID
Patient Comments:
09/03/2023, via picc line.
cyanocobalamin (vitamin B-12) 1,000 mcg/mL Solution
1,000 mcg IM QMONTH
estradiol [Estrace] 0.01 % (0.1 mg/gram) Cream
1 appful VAGINAL SUWE
sildenafil (pulm.hypertension) 20 mg Tablet
60 mg PO BID
Prolia 60 mg/mL Syringe
60 mg SC [id number]
Thyquidity 20 mcg/mL Solution
560 mcg PO DAILY@0700
cholecalciferol (vitamin D3) [Vitamin D3] 25 mcg (1,000 unit) Tablet
25 mcg PO DAILY
Blink Tears 0.25 % Drops
1 drp OPHTHALMIC (EYE) DAILYPRN PRN (Reason: dry eyes)
Rx Instructions:
both eyes
amlodipine 2.5 mg Tablet
2.5 mg PO DAILY
lorazepam 0.5 mg Tablet
0.5 mg PO HSPRN PRN (Reason: sleep)
hydroxyzine HCl 10 mg Tablet
10 mg PO TIDPRN PRN (Reason: itch)
Referrals:
Toyin Goldstein MD [Family Provider] -
Activity Restrictions/Additional Instructions:
As discussed, we cannot obtain your blood for a transfusion at this time. Please follow-up as planned this coming for transfusion at the infusion center
Interventions
Interventions:
*Risk Screen - Suicide Last Done: 05/14/24 17:42
*General Assessment Last Done: 05/14/24 17:42
*ED COVID-19 Vaccine History Last Done: 05/14/24 17:42
Discharge Date and Time
Print Language: NORWEGIAN
== END 2024-05-14 20:28 | disposition home or self-care (01) ==
LOC: EMR 17:22
PROVIDERS: Physician Assistant; EMERGENCY PHYSICIAN Emergency Medicine; FAMILY PHYSICIAN Family Medicine
DX: D64.9 Anemia, unspecified (principal); E03.9 Hypothyroidism, unspecified; M34.9 Systemic sclerosis, unspecified; Z90.710 Acquired absence of both cervix and uterus
CPT/HCPCS: 99283; 80053; 85025

== ENCOUNTER 2024-05-16 09:45 | Outpatient (RCR) | payer MEDICARE, OTHER, SELFPAY ==
[2024-05-16] VITALS (7 sets, daily range): BP systolic 86–116; BP diastolic 52–85
[2024-05-16] MEDS: TYLENOL 650 MG PO (09:48)
== END 2024-05-17 09:12 | disposition home or self-care (01) ==
LOC: OID 09:45
PROVIDERS: ATTENDING PHYSICIAN Internal Medicine Hematology & Oncology; FAMILY PHYSICIAN Family Medicine
DX: D50.0 Iron deficiency anemia secondary to blood loss (chronic) (principal); D47.2 Monoclonal gammopathy; R53.83 Other fatigue
CPT/HCPCS: 36415; 36430; 86850; 86900; 86901; 86920; 86922; P9016

== ENCOUNTER 2024-06-06 11:24 | Outpatient (RCR) | payer MEDICARE, OTHER, SELFPAY ==
[2024-05-24 13:21] VITALS: BP 121/59
[2024-05-24 13:34] LABS: % Basophils 0.6 % (0-2); % Eosinophils 0.6 % (0-6); % Immature Granulocytes 0.1 % (0-0.5); % Monocytes 10.7 % (1.7-9.3); Absolute Lymphocytes 0.7 10^3/uL (1.2-3.4); Absolute Monocytes 0.8 10^3/uL (0.1-0.6); Absolute Neutrophils 5.5 10^3/uL (1.4-6.5); Hematocrit 25.5 % (37.0-47.0); Mean Corp Hgb Conc. 31.4 g/dL (33.0-37.0); Mean Corpuscular Hgb 28.5 pg (27.0-31.0); Mean Corpuscular Volume 90.7 fL (81.0-99.0); Mean Platelet Volume 10.4 fL (7.4-10.4); Platelet Count 102 10^3/uL (130-400); Red Blood Cell Count 2.81 10^6/uL (4.20-5.40); Red Cell Dist. Width 15.6 % (11.5-14.5); White Blood Cell Count 7.1 10^3/uL (4.8-10.8)
[2024-05-24] MEDS: INJECTAFER 263.83 MG IV (14:05)
[2024-05-24 15:25] VITALS: BP 107/53
[2024-05-24 15:35] LABS: Vitamin D, 25-OH*** 12.8 ng/mL (30-80)
[2024-05-31 13:05] VITALS: BP 109/62
[2024-05-31] MEDS: INJECTAFER 263.83 MG IV (13:22)
[2024-05-31 14:00] LABS: % Basophils 0.2 % (0-2); % Eosinophils 0.7 % (0-6); % Immature Granulocytes 0.3 % (0-0.5); % Lymphocytes 11.5 % (20.5-51.1); % Monocytes 9.5 % (1.7-9.3); % Neutrophils 77.8 % (42.2-75.2); Absolute Lymphocytes 0.7 10^3/uL (1.2-3.4); Absolute Monocytes 0.6 10^3/uL (0.1-0.6); Absolute Neutrophils 4.7 10^3/uL (1.4-6.5); Hematocrit 24.7 % (37.0-47.0); Hemoglobin 7.7 g/dL (12.0-16.0); Mean Corp Hgb Conc. 31.2 g/dL (33.0-37.0); Mean Corpuscular Hgb 28.9 pg (27.0-31.0); Mean Corpuscular Volume 92.9 fL (81.0-99.0); Mean Platelet Volume 11.8 fL (7.4-10.4); Nucleated Red Blood Cells % 0 %; Platelet Count 119 10^3/uL (130-400); Red Blood Cell Count 2.66 10^6/uL (4.20-5.40); Red Cell Dist. Width 19.6 % (11.5-14.5); White Blood Cell Count 6.1 10^3/uL (4.8-10.8)
[2024-05-31 14:13] VITALS: BP 115/55
[2024-05-31 14:36] LABS: Phosphorus 2.8 mg/dl (2.5-4.5)
[2024-06-06 11:35] VITALS: BP 120/69
[2024-06-06 11:51] VITALS: BP 120/69
[2024-06-06 12:08] VITALS: BP 111/56
[2024-06-06 13:34] VITALS: BP 119/58
== END 2024-06-17 23:59 | disposition home or self-care (01) ==
LOC: OID 11:24
PROVIDERS: ATTENDING PHYSICIAN Internal Medicine Hematology & Oncology; FAMILY PHYSICIAN Family Medicine
DX: D50.0 Iron deficiency anemia secondary to blood loss (chronic) (principal); D47.2 Monoclonal gammopathy; R53.83 Other fatigue
CPT/HCPCS: 36415; 36430; 82306; 84100; 85025; 86850; 86900; 86901; 86920; 86922; 96365; J1439; P9016

== ENCOUNTER → 2024-07-06 10:16 | Outpatient (REF) | payer MEDICARE, OTHER, SELFPAY | LOC: REG 10:16 | PROVIDERS: ATTENDING PHYSICIAN Internal Medicine Hematology & Oncology | DX: D47.2 Monoclonal gammopathy (principal); D50.0 Iron deficiency anemia secondary to blood loss (chronic); R53.83 Other fatigue | CPT/HCPCS: 36415 ==

== ENCOUNTER 2024-07-09 10:51 | Outpatient (RCR) | payer MEDICARE, OTHER, SELFPAY ==
[2024-07-09 11:26] VITALS: BP 109/54
[2024-07-09 11:44] VITALS: BP 100/51
[2024-07-09 13:46] VITALS: BP 114/60
--- NOTE | 2024-07-09 15:31 | PTCARENOTE ---
Pt here for transfusion PRBC. Pt has ostomy for previous G tube drainage. Pt notes burning and redness at stoma site. Call placed for consult to Lavinia Calderón [facility] nurse to follow up with patient.
== END 2024-07-17 23:59 | disposition home or self-care (01) ==
LOC: OID 10:51
PROVIDERS: ATTENDING PHYSICIAN Internal Medicine Hematology & Oncology; FAMILY PHYSICIAN Family Medicine
DX: D50.0 Iron deficiency anemia secondary to blood loss (chronic) (principal); K92.2 Gastrointestinal hemorrhage, unspecified; D47.2 Monoclonal gammopathy; R53.83 Other fatigue; R53.82 Chronic fatigue, unspecified
CPT/HCPCS: 36430; 86850; 86900; 86901; 86920; 86922; P9016

== ENCOUNTER 2024-08-16 11:36 | Outpatient (RCR) | payer MEDICARE, OTHER, SELFPAY ==
[2024-08-02 10:30] VITALS: BP 111/59
[2024-08-02 11:01] VITALS: BP 111/59
[2024-08-02 11:16] VITALS: BP 100/54
[2024-08-02 13:04] VITALS: BP 109/65
[2024-08-16 11:45] VITALS: BP 107/51
[2024-08-16 11:55] VITALS: BP 107/51
[2024-08-16 12:14] VITALS: BP 91/49
[2024-08-16 14:05] VITALS: BP 104/60
== END 2024-08-17 23:59 | disposition home or self-care (01) ==
LOC: OID 11:36
PROVIDERS: ATTENDING PHYSICIAN Internal Medicine Hematology & Oncology; FAMILY PHYSICIAN Family Medicine
DX: D50.0 Iron deficiency anemia secondary to blood loss (chronic) (principal); K92.2 Gastrointestinal hemorrhage, unspecified; D47.2 Monoclonal gammopathy; R53.82 Chronic fatigue, unspecified; R53.83 Other fatigue
CPT/HCPCS: 36415; 36430; 36591; 86850; 86900; 86901; 86920; 86922; P9016

== ENCOUNTER → 2024-09-06 12:26 | Outpatient (REF) | payer MEDICARE, OTHER, SELFPAY ==
--- NOTE | 2024-09-06 12:30 | WOUNDNOTE ---
LUQ GASTRIC FISTULA
--- NOTE | 2024-09-06 12:30 | WOUNDNOTE ---
LUQ GASTRIC FISTULA
--- NOTE | 2024-09-06 12:30 | WOUNDNOTE ---
[facility] RN note: Patient seen with Dr. 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 Patient using Convatec pouch # [id number] with no sting skin prep (Cavilon or Cavilon advanced # 0701). Instructed patient
and son Santo application of hydrocolloid to MARSI linear dermal ulcer. And for pouching to use of stoma powder or her antifungal powder to denuded skin followed by Cavilon advanced on top using Herbert 1 piece pouch # [id number]. Also suggested using
Anna seal and/or Anna paste if needed. Patient is current with [facility]. Instructed patient to call with questions regarding pouching. Patient mentioned she may have surgery in future for another feeding tube in another location. Patient also
has a small fistula pouch to try. She plans to follow up with her GI surgeon at [facility]. Also mentioned she can seek another ostomy nurse opinion at [facility].
--- NOTE | 2024-09-06 16:30 | WOUNDNOTE ---
LUQ gastric fistula
== END ==
LOC: WOUND 12:26
PROVIDERS: ATTENDING PHYSICIAN Surgery; FAMILY PHYSICIAN Family Medicine
DX: S31.109A Unspecified open wound of abdominal wall, unspecified quadrant without penetration into peritoneal cavity, initial encounter (principal); M34.9 Systemic sclerosis, unspecified; I73.00 Raynaud's syndrome without gangrene; M34.81 Systemic sclerosis with lung involvement; R60.0 Localized edema; Z78.9 Other specified health status; Z93.1 Gastrostomy status; Y84.8 Other medical procedures as the cause of abnormal reaction of the patient, or of later complication, without mention of misadventure at the time of the procedure; Y73.8 Miscellaneous gastroenterology and urology devices associated with adverse incidents, not elsewhere classified
CPT/HCPCS: 99214

== ENCOUNTER → 2024-09-10 13:51 | Outpatient (REF) | payer MEDICARE, OTHER, SELFPAY | LOC: HWRAD 13:51 | PROVIDERS: ATTENDING PHYSICIAN Internal Medicine Gastroenterology; FAMILY PHYSICIAN Family Medicine | DX: T18.9XXD Foreign body of alimentary tract, part unspecified, subsequent encounter (principal) | CPT/HCPCS: 74018 ==

== ENCOUNTER 2024-09-11 10:22 | Outpatient (RCR) | payer MEDICARE, OTHER, SELFPAY ==
[2024-08-30] VITALS (7 sets, daily range): BP systolic 88–109; BP diastolic 45–54
[2024-09-11 10:13] VITALS: BP 107/55
[2024-09-11 10:28] VITALS: BP 107/55
[2024-09-11 10:46] VITALS: BP 101/53
[2024-09-11 12:31] VITALS: BP 111/59
== END 2024-09-16 23:59 | disposition home or self-care (01) ==
LOC: OID 10:22
PROVIDERS: ATTENDING PHYSICIAN Internal Medicine Hematology & Oncology; FAMILY PHYSICIAN Family Medicine
DX: D50.0 Iron deficiency anemia secondary to blood loss (chronic) (principal); D47.2 Monoclonal gammopathy; R53.83 Other fatigue; K92.2 Gastrointestinal hemorrhage, unspecified; R53.82 Chronic fatigue, unspecified
CPT/HCPCS: 36415; 36430; 86850; 86900; 86901; 86920; 86922; P9016

== ENCOUNTER → 2024-09-23 12:32 | Outpatient (REF) | payer MEDICARE, OTHER, SELFPAY | LOC: REG 12:32 | PROVIDERS: ATTENDING PHYSICIAN Internal Medicine Hematology & Oncology; FAMILY PHYSICIAN Family Medicine | DX: D47.2 Monoclonal gammopathy (principal); D50.0 Iron deficiency anemia secondary to blood loss (chronic); R53.83 Other fatigue | CPT/HCPCS: 36415; 86850; 86900; 86901; 86920; 86922 ==

== ENCOUNTER → 2024-09-26 11:30 | Outpatient (REF) | payer MEDICARE, OTHER, SELFPAY | LOC: HWRAD 11:30 | PROVIDERS: ATTENDING PHYSICIAN Internal Medicine Gastroenterology; FAMILY PHYSICIAN Family Medicine | DX: Z18.9 Retained foreign body fragments, unspecified material (principal) | CPT/HCPCS: 74176 ==

== ENCOUNTER 2024-10-11 09:57 | Outpatient (RCR) | payer MEDICARE, OTHER, SELFPAY ==
[2024-09-24 09:47] VITALS: BP 116/57
[2024-09-24 10:10] VITALS: BP 109/56
[2024-09-24] MEDS: TYLENOL 650 MG PO (11:42)
[2024-09-24 11:49] VITALS: BP 114/60
[2024-09-24 11:58] VITALS: BP 114/60
[2024-09-24 12:17] VITALS: BP 112/60
[2024-09-24 14:01] VITALS: BP 124/61
[2024-09-27 11:54] VITALS: BP 121/66
[2024-09-27] MEDS: LEVOTHYROXINE SODIUM 1.5 MCG IM ×2 (12:13)
[2024-09-27 14:28] VITALS: BP 96/67
[2024-10-01 14:18] LABS: Hematocrit 25.1 % (37.0-47.0); Hemoglobin 8.0 g/dL (12.0-16.0); Mean Corp Hgb Conc. 31.9 g/dL (33.0-37.0); Mean Corpuscular Volume 85.1 fL (81.0-99.0); Platelet Count 162 10^3/uL (130-400); Red Cell Dist. Width 17.4 % (11.5-14.5)
[2024-10-04 13:17] VITALS: BP 102/60
[2024-10-04] MEDS: LEVOTHYROXINE SODIUM 1.5 MCG IM ×2 (13:28→13:29)
[2024-10-11 10:31] VITALS: BP 102/53
[2024-10-11 10:54] VITALS: BP 100/54
[2024-10-11 12:57] VITALS: BP 106/56
[2024-10-11 13:17] VITALS: BP 100/55
[2024-10-11 15:03] VITALS: BP 126/64
[2024-10-11] MEDS: LEVOTHYROXINE SODIUM 1.5 MCG IM ×2 (15:13→15:14)
== END 2024-10-14 10:55 | disposition home or self-care (01) ==
LOC: OID 09:57
PROVIDERS: ATTENDING PHYSICIAN Internal Medicine Endocrinology, Diabetes & Metabolism; FAMILY PHYSICIAN Family Medicine; REFERRING PHYSICIAN Internal Medicine Hematology & Oncology
DX: D50.0 Iron deficiency anemia secondary to blood loss (chronic) (principal); D47.2 Monoclonal gammopathy; R53.83 Other fatigue; K92.2 Gastrointestinal hemorrhage, unspecified; R53.82 Chronic fatigue, unspecified
CPT/HCPCS: 36415; 36430; 85025; 86850; 86900; 86901; 86920; 86922; 96372; P9016

== ENCOUNTER → 2024-11-13 14:26 | Outpatient (REF) | payer MEDICARE, OTHER, SELFPAY | LOC: RAD 14:26 | PROVIDERS: ATTENDING PHYSICIAN Internal Medicine Rheumatology; FAMILY PHYSICIAN Family Medicine | DX: Z13.820 Encounter for screening for osteoporosis (principal); M81.0 Age-related osteoporosis without current pathological fracture | CPT/HCPCS: 77080 ==

== ENCOUNTER 2024-11-15 13:01 | Outpatient (RCR) | payer MEDICARE, OTHER, SELFPAY ==
[2024-10-18 11:45] VITALS: BP 129/65
[2024-10-18] MEDS: LEVOTHYROXINE SODIUM 1.5 MCG IM ×2 (11:56)
--- NOTE | 2024-10-25 11:20 | PTCARENOTE ---
Pt appointment not until [address] Juan called to say that Levothyroxine dose should stay the same (300mcg IM) for now and if pt has symptoms of shakiness or tachycardia to TT Dr. Heredia RN to care for patient.
[2024-10-25 13:39] VITALS: BP 105/55
[2024-10-25] MEDS: LEVOTHYROXINE SODIUM 1.5 MCG IM ×2 (13:45)
[2024-10-31] VITALS (7 sets, daily range): BP systolic 107–116; BP diastolic 53–57
[2024-10-31] MEDS: TYLENOL ORAL SOLUTION 650 MG PO (09:44)
[2024-11-01 13:55] VITALS: BP 131/69
[2024-11-01] MEDS: LEVOTHYROXINE SODIUM 1.5 MCG IM ×2 (14:15)
[2024-11-08 13:55] VITALS: BP 108/57
[2024-11-08] MEDS: LEVOTHYROXINE SODIUM 1.5 MCG IM ×2 (14:11)
[2024-11-15 13:32] VITALS: BP 114/61
[2024-11-15] MEDS: LEVOTHYROXINE SODIUM 1.5 MCG IM ×2 (13:38→13:39)
== END 2024-11-17 23:59 | disposition home or self-care (01) ==
LOC: OID 13:01
PROVIDERS: ATTENDING PHYSICIAN Internal Medicine Hematology & Oncology; FAMILY PHYSICIAN Family Medicine; REFERRING PHYSICIAN Internal Medicine Endocrinology, Diabetes & Metabolism
DX: E03.9 Hypothyroidism, unspecified (principal); K92.2 Gastrointestinal hemorrhage, unspecified; D50.0 Iron deficiency anemia secondary to blood loss (chronic); D47.2 Monoclonal gammopathy; R53.83 Other fatigue; R53.82 Chronic fatigue, unspecified
CPT/HCPCS: 36430; 86850; 86900; 86901; 86920; 86922; 96372; P9016

== ENCOUNTER → 2024-12-12 15:40 | Outpatient (REF) | payer MEDICARE, OTHER, SELFPAY | LOC: REG 15:40 | PROVIDERS: ATTENDING PHYSICIAN Internal Medicine Endocrinology, Diabetes & Metabolism; FAMILY PHYSICIAN Family Medicine | DX: E06.3 Autoimmune thyroiditis (principal) | CPT/HCPCS: 36415; 84443 ==

== ENCOUNTER 2024-12-13 12:58 | Outpatient (RCR) | payer MEDICARE, OTHER, SELFPAY ==
[2024-11-22 15:17] VITALS: BP 115/53
[2024-11-22] MEDS: LEVOTHYROXINE SODIUM 1.5 MCG IM ×2 (15:25→15:26)
[2024-11-28 10:55] VITALS: BP 118/55
[2024-11-28] MEDS: LEVOTHYROXINE SODIUM 1.5 MCG IM ×2 (11:12)
[2024-11-28 11:34] VITALS: BP 118/55
[2024-11-28 11:52] VITALS: BP 88/45
[2024-11-28 13:36] VITALS: BP 105/55
--- NOTE | 2024-12-04 13:36 | PTCARENOTE ---
Communication with Dr. Juan via tiger text regarding levothyroxine weekly injections.
Bri Juan
[phone]
Monday, Dec 04
You said
Good morning, just touching base for Deann Dee ( 1950). Her labs from 12/02 tsh is 0.51. Should we continue with the weekly levothyroxine 300 mcg IM weekly?
Thank you
10:40 AM
Message sent at 10:40 AM.
30 days left
Message expires in 30 days.
Message status isRead
Bri Juan said
Yes please, thank you for checking in.
10:49 AM
Message sent at 10:49 AM.
30 days left
Message expires in 30 days.
You said
Great thank you!
10:54 AM
Message sent at 10:54 AM.
30 days
[2024-12-06 13:00] VITALS: BP 125/54
[2024-12-06] MEDS: LEVOTHYROXINE SODIUM 1.5 MCG IM ×2 (13:13)
[2024-12-13 13:28] VITALS: BP 104/58
[2024-12-13] MEDS: LEVOTHYROXINE SODIUM 1.5 MCG IM ×2 (13:36)
== END 2024-12-16 08:45 | disposition home or self-care (01) ==
LOC: OID 12:58
PROVIDERS: ATTENDING PHYSICIAN Internal Medicine Hematology & Oncology; FAMILY PHYSICIAN Family Medicine; REFERRING PHYSICIAN Internal Medicine Endocrinology, Diabetes & Metabolism
DX: D50.0 Iron deficiency anemia secondary to blood loss (chronic) (principal); E03.9 Hypothyroidism, unspecified (principal); K92.2 Gastrointestinal hemorrhage, unspecified; D47.2 Monoclonal gammopathy; R53.83 Other fatigue; R53.82 Chronic fatigue, unspecified
CPT/HCPCS: 36415; 36430; 86850; 86900; 86901; 86920; 86922; 96372; P9016

== ENCOUNTER → 2025-01-06 14:51 | Outpatient (REF) | payer MEDICARE, OTHER, SELFPAY | LOC: RCS 14:51 | PROVIDERS: ATTENDING PHYSICIAN Nurse Practitioner Family | DX: Z01.818 Encounter for other preprocedural examination (principal) | CPT/HCPCS: 93005 ==

== ENCOUNTER 2025-01-17 13:08 | Outpatient (RCR) | payer MEDICARE, OTHER, SELFPAY ==
[2024-12-20 13:00] VITALS: BP 122/58
[2024-12-20] MEDS: LEVOTHYROXINE SODIUM 1.5 MCG IM ×2 (13:23)
[2024-12-27 11:11] VITALS: BP 111/55
[2024-12-27 11:21] VITALS: BP 111/55
[2024-12-27 11:39] VITALS: BP 106/63
[2024-12-27] MEDS: TYLENOL 650 MG PO (13:01)
[2024-12-27 13:36] VITALS: BP 115/69
[2024-12-27] MEDS: LEVOTHYROXINE SODIUM 1.5 MCG IM ×2 (13:36)
[2025-01-03 13:10] VITALS: BP 115/51
[2025-01-03] MEDS: LEVOTHYROXINE SODIUM 1.5 MCG IM ×2 (13:19)
[2025-01-10 11:56] VITALS: BP 107/33
[2025-01-10 12:14] VITALS: BP 99/44
[2025-01-10] MEDS: LEVOTHYROXINE SODIUM 1.5 MCG IM ×2 (13:50)
[2025-01-10 14:08] VITALS: BP 113/38
[2025-01-17 13:15] VITALS: BP 117/49
[2025-01-17] MEDS: LEVOTHYROXINE SODIUM 1.5 MCG IM ×2 (13:31)
== END 2025-01-17 23:59 | disposition home or self-care (01) ==
LOC: OID 13:08
PROVIDERS: ATTENDING PHYSICIAN Internal Medicine Hematology & Oncology; FAMILY PHYSICIAN Family Medicine; REFERRING PHYSICIAN Internal Medicine Endocrinology, Diabetes & Metabolism
DX: D50.0 Iron deficiency anemia secondary to blood loss (chronic) (principal); K92.2 Gastrointestinal hemorrhage, unspecified; D47.2 Monoclonal gammopathy; R53.83 Other fatigue; E03.9 Hypothyroidism, unspecified; E06.3 Autoimmune thyroiditis; R53.82 Chronic fatigue, unspecified
CPT/HCPCS: 36415; 36430; 86850; 86900; 86901; 86920; 86922; 96372; P9016

== ENCOUNTER 2025-02-14 10:59 | Outpatient (RCR) | payer MEDICARE, OTHER, SELFPAY ==
[2025-02-14 11:16] VITALS: BP 144/72
[2025-02-14] MEDS: LEVOTHYROXINE SODIUM 1.5 MCG IM ×2 (11:21→11:22)
== END 2025-02-16 23:59 | disposition home or self-care (01) ==
LOC: OID 10:59
PROVIDERS: ATTENDING PHYSICIAN Internal Medicine Hematology & Oncology; FAMILY PHYSICIAN Family Medicine; REFERRING PHYSICIAN Internal Medicine Endocrinology, Diabetes & Metabolism
DX: E03.9 Hypothyroidism, unspecified (principal); D50.0 Iron deficiency anemia secondary to blood loss (chronic); D47.2 Monoclonal gammopathy; K92.2 Gastrointestinal hemorrhage, unspecified; R53.83 Other fatigue; E06.3 Autoimmune thyroiditis; R53.82 Chronic fatigue, unspecified
CPT/HCPCS: 96372

== ENCOUNTER 2025-03-14 12:24 | Outpatient (RCR) | payer MEDICARE, OTHER, SELFPAY ==
[2025-02-21 13:17] VITALS: BP 148/81
[2025-02-21] MEDS: LEVOTHYROXINE SODIUM 1.5 MCG IM ×2 (13:37→13:38)
--- NOTE | 2025-02-26 14:42 | PTCARENOTE ---
Sunray Text sent to Dr. Bri Juan, notified of TSH level 6.660 from 02/24/25. Pt is to receive weekly levothyroxine dosing.
Humble I am touching base regarding Deann Dee 50
She did receive her levothyroxine dose of 300mcg IM 02/14/35 and 02/21/25. She has been hospitalized prior to that for a few weeks
Most recent TSH from 02/24/25 was 6.660
Just confirming we are to proceed with current dose of Levothyroxine 300mcg IM weekly?
2:27 PM
Message sent at 2:27 PM.
30 days left
Message expires in 30 days.
Message status isRead
Bri Juan said
Yes please thank you I will watch her levels.
2:28 PM
Message sent at 2:28 PM.
30 days left
Message expires in 30 days.
You said
Thanks !
[2025-02-28] MEDS: LEVOTHYROXINE SODIUM 1.5 MCG IM ×2 (13:44)
[2025-03-07 13:45] VITALS: BP 134/54
[2025-03-07] MEDS: LEVOTHYROXINE SODIUM 1.5 MCG IM ×2 (14:01)
[2025-03-14 12:57] VITALS: BP 147/72
[2025-03-14] MEDS: LEVOTHYROXINE SODIUM 1.5 MCG IM ×2 (13:05)
== END 2025-03-17 09:09 | disposition home or self-care (01) ==
LOC: OID 12:24
PROVIDERS: ATTENDING PHYSICIAN Internal Medicine Hematology & Oncology; FAMILY PHYSICIAN Family Medicine; REFERRING PHYSICIAN Internal Medicine Endocrinology, Diabetes & Metabolism
DX: D50.0 Iron deficiency anemia secondary to blood loss (chronic) (principal); K92.2 Gastrointestinal hemorrhage, unspecified; E03.9 Hypothyroidism, unspecified; D47.2 Monoclonal gammopathy; R53.83 Other fatigue; E06.3 Autoimmune thyroiditis; R53.82 Chronic fatigue, unspecified
CPT/HCPCS: 96372